=== PATIENT | female | born 1980 | race Caucasian/White ===

== ENCOUNTER 2022-09-25 10:13 | Outpatient (OUT) | payer OTHER, SELFPAY ==
--- NOTE | 2022-09-25 10:38 | XR_ITS ---
[address] [address] Patient Name: AMISHA LAKHANI MRN: [id number] date: 1980 Sex: F Assigned Patient Location: [facility] Current Patient Location: [facility] Accession/Order Number: [id number] Exam Date: 09/25/2022 10:30 Report Date: 09/25/2022 11:54 At the request of: CE DELUCA Procedure: XR lumbar spine 2-3V EXAM: XR lumbar spine 2-3V HISTORY: Low Back Derangement Syndrome M53.86 COMPARISON: None. TECHNIQUE: 2 views FINDINGS: Satisfactory alignment. Maintained vertebral body heights and disc spaces. No acute fracture or subluxation. Unremarkable soft tissues. XR/XR lumbar spine 2-3V IMPRESSION: Unremarkable exam. Electronically authenticated by: EMI VILLALBA Date: 09/25/2022 11:54
== END 2022-09-25 10:14 | disposition home or self-care (01) ==
LOC: RAD 10:16
PROVIDERS: PCP Family Medicine; Visit Provider Family Medicine
DX: M53.86 Other specified dorsopathies, lumbar region (principal)
CPT/HCPCS: 72100

== ENCOUNTER 2023-05-07 16:42 | Outpatient (OUT) | payer OTHER, SELFPAY ==
[2023-05-07 17:01] LABS: Basophils Percent Auto 0.4 % (0.2-2.0); Eosinophils Absolute Auto 0.2 10^3/uL (0.0-0.7); Eosinophils Percent Auto 2.2 % (0.9-7.0); Hemoglobin 13.2 g/dL (12.0-16.0); Immature Granulocytes Abs Auto 0.02 10^3/uL (0.00-0.03); Immature Granulocytes Pct Auto 0.2 % (0.0-0.5); Lymphocytes Absolute Auto 2.6 10^3/uL (1.2-3.8); Lymphocytes Percent Auto 30.6 % (20.5-60.0); Mean Corpuscular Hemoglobin 30.8 pg (26.7-34.0); Mean Corpuscular Volume 93.2 fL (81.0-99.0); Mean Platelet Volume 9.8 fL (9.5-13.5); Monocytes Absolute Auto 0.5 10^3/uL (0.3-0.8); Monocytes Percent Auto 5.3 % (1.7-12.0); Neutrophils Absolute Auto 5.2 10^3/uL (1.4-6.5); Neutrophils Percent Auto 61.3 % (43.0-75.0); Platelet Count 289 10^3/uL (150-450); Red Blood Count 4.29 10^6/uL (4.20-5.40); Red Cell Distribution Width 11.9 % (11.0-15.0); White Blood Count 8.5 10^3/uL (4.0-11.0)
[2023-05-07 17:43] LABS: Alanine Aminotransferase 23 U/L (14-59); Albumin Globulin Ratio 0.9; Albumin Level 3.5 g/dL (3.4-5.0); Alkaline Phosphatase 78 U/L (46-116); Anion Gap 12.1; Aspartate Amino Transferase 16 U/L (15-37); BUN Creatinine Ratio 13.9; Bilirubin Total 0.5 mg/dL (0.2-1.0); Calcium 8.6 mg/dL (8.5-10.1); Carbon Dioxide 28.2 mmol/L (21.0-32.0); Chloride 103 mmol/L (98-107); Estimated GFR (African America >60 (>=60); Estimated GFR (Non-African Ame >60 (>=60); Free T3 2.56 pg/mL (2.18-3.98); Globulin 3.8 g/dL; Glucose 149 mg/dL (74-106); Potassium 3.3 mmol/L (3.5-5.1); Sodium 140 mmol/L (136-145); Total Protein 7.3 g/dL (6.4-8.2)
== END 2023-05-07 16:43 | disposition home or self-care (01) ==
PROVIDERS: PCP Family Medicine; Visit Provider Family Medicine
DX: G43.909 Migraine, unspecified, not intractable, without status migrainosus (principal)
CPT/HCPCS: 36415; 80053; 82533; 84436; 84443; 84481; 85025

== ENCOUNTER 2023-05-10 09:09 | Outpatient (OUT) | payer OTHER, SELFPAY ==
--- OUTSIDE RECORDS SUMMARY | 2023-05-10 09:14 | XMS_ITS | CCD ---
Author Name Unknown Address [address] [place] [address] Organization [facility] Care Team Providers Care Ore Roaster Name Role Phone PHYSICIAN, DEFAULT Unavailable Unavailable PHYSICIAN, DEFAULT Unavailable Unavailable SELF, REFERRED Unavailable Unavailable Ce Pereira Primary Care Physician Dominique Blackwood Attending Unavailable HARDEN ., DR MONTANA Chiang Admitting Unavailable HARDEN ., DR MONTANA Chiang Consulting Unavailable HOY ., DR ENCINAS Primary Care Unavailable HARDEN ., DR MON[place]NA Chiang Attending Unavailable HARDEN ., DR MONTANA Chiang Admitting Unavailable HARDEN ., DR MONTANA Chiang Attending Unavailable HOY ., DR ENCINAS Primary Care Unavailable MIGUEL .DONOVAN Consulting Unavailable HOY ., DR ENCINAS Attending Unavailable HOY ., DR ENCINAS Admnatalie Unavailable HOY ., DR ENCINAS Primary Care Unavailable HOY ., DR ENCINAS Consulting Unavailable HOY ., DR ENCINAS Attending Unavailable HOY ., DR ENCINAS Admitting Unavailable HOY ., DR ENCINAS Primary Care Unavailable HOY ., DR ENCINAS Consulting Unavailable HOY ., DR ENCINAS Consulting Unavailable HOY ., DR ENCINAS Admitting Unavailable HOY ., DR ENCINAS Attending Unavailable HOY ., DR ENCINAS Primary Care Unavailable WEST, DR JUSTICE Romeo Consulting Unavailable HOY ., DR ENCINAS Consulting Unavailable HOY ., DR ENCINAS Primary Care Unavailable HOY ., DR ENCINAS Admnatalie Unavailable HOY ., DR ENCINAS Attending Unavailable WEST, DR JUSTICE Romeo Consulting Unavailable HOY ., DR ENCINAS Admnatalie Unavailable HOY ., DR ENCINAS Primary Care Unavailable HOY ., DR ENCINAS Attending Unavailable HOY ., DR ENCINAS Consulting Unavailable WEST, DR JUSTICE Romeo Consulting Unavailable HOY ., DR ENCINAS Primary Care Unavailable HOY ., DR ENCINAS Attending Unavailable HOY ., DR ENCINAS Admitting Unavailable HOY ., DR ENCINAS Consulting Unavailable HOY ., DR ENCINAS Admitting Unavailable HOY ., DR ENCINAS Attending Unavailable HOY ., DR ENCINAS Primary Care Unavailable HOY ., DR ENCINAS Consulting Unavailable HOY ., DR ENCINAS Consulting Unavailable HOY ., DR ENCINAS Admitting Unavailable HOY ., DR ENCINAS Attending Unavailable HOY ., DR ENCINAS Primary Care Unavailable [place], DR JUSTICE Romeo Consulting Unavailable HOY ., DR ENCINAS Admitting Unavailable HOY ., DR ENCINAS Primary Care Unavailable HOY ., DR ENCINAS Attending Unavailable Allergies Allergy Classification Reported Allergen(s) Allergy Type Date of Onset Reaction(s) Facility (1 source) penicillin Drug Allergy 06-14-2015 [facility] Repository (4 sources) Penicillins; Translations: [penicillins] Drug allergy 09-20-2012 [facility] Medications Current Medications Medication Drug Class(es) Dates Sig (Normalized) Sig (Original) hyoscyamine sulfate 0.125 mg oral tablet (1 source) Start: 10-08-2018 take 1 tablet under the tongue four times daily Levsin 0.125 mg SL Tab 0.125 mg = 1 tab(s), SubLingual, QID, Refills(s) 0 Start Date: 10/08/18 Status: Ordered pantoprazole 40 mg delayed release oral tablet (1 source) Proton Pump Inhibitor Start: 10-28-2018 take 1 tablet by mouth once daily Protonix 40 mg Tab-DR 40 mg = 1 tab(s), Oral, Daily Start Date: 10/28/18 Status: Ordered Problems Active Problems Problem Classification Problem Date Documented Da te Episodic/Chronic Abdominal pain (1 source) Right upper quadrant pain 10-16-2018 Episodic Esophageal disorders (1 source) Gastroesophageal reflux disease 10-28-2018 Chronic Inflammatory diseases of female pelvic organs (1 source) Female pelvic inflammatory disease 03-12-2014 Episodic Miscellaneous mental health disorders (1 source) Primary insomnia; Translations: [PRIMARY INSOMNIA] Onset: 3 Chronic Noninfectious gastroenteritis (1 source) Postprandial diarrhea 10-16-2018 Episodic Nonspecific chest pain (1 source) Chest pain; Translations: [Chest pain, unspecified] Onset: 2 Episodic Other gastrointestinal disorders (1 source) Abdominal bloating 10-16-2018 Episodic Other upper respiratory disease (1 source) Nasal congestion; Translations: [NASAL CONGESTION] Onset: 2 Episodic Residual codes; unclassified (4 sources) Obstructive sleep apnea (adult) (pediatric); Translations: [OBSTRUCTIVE SLEEP APNEA] Onset: 3 Chronic Residual codes; unclassified (1 source) Primary central sleep apnea; Translations: [PRIMARY CENTRAL SLEEP APNEA] Onset: 3 Chronic Spondylosis; intervertebral disc disorders; other back problems (1 source) Other cervical disc degeneration, unspecified cervical region; Translations: [OTH CERV DISC DEGENERATION UNS CERV] Onset: 2 Chronic Substance-related disorders (1 source) Smoker 03-12-2014 Chronic Comment on above: Added secondary to d ocumentation in Social History. Unclassified (3 sources) CONTACT W/AND (SUSP) EXPOS COVID-19; Translations: [CONTACT W/AND (SUSP) EXPOS COVID-19] Onset: 2 Unclassified (1 source) COUGH, UNSPECIFIED; Translations: [COUGH, UNSPECIFIED] Onset: 2 Past or Other Problems Problem Classification Problem Date Documented Da te Episodic/Chronic Other connective tissue disease (1 source) Unspecified rotator cuff tear or rupture of left shoulder, not specified as traumatic; Translations: [UNS ROT CUFF TEAR/RUPT LT SHOULDER] Onset: 02-08-2022 Episodic Other connective tissue disease (1 source) Pain in right arm; Translations: [PAIN IN RIGHT ARM] Onset: 11-08-2021 Episodic Other connective tissue disease (1 source) Abnormal posture; Translations: [ABNORMAL POSTURE] Onset: 11-08-2021 Episodic Other non-traumatic joint disorders (5 sources) Pain in left shoulder; Translations: [PAIN IN LEFT SHOULDER] Onset: 08-17-2021 Episodic Spondylosis; intervertebral disc disorders; other back problems (10 sources) Cervicalgia; Translations: [Radiculopathy, cervical region] Onset: 11-07-2021 Episodic Unclassified (1 source) CONTACT W/AND (SUSP) EXPOS COVID-19; Translations: [CONTACT W/AND (SUSP) EXPOS COVID-19] Onset: 03-06-2022 Results Test Name Value Interpretation Reference Range Facility Covid-19 PCR (CVDTB)on 02-09 SARS-CoV-2 (COVID-19) RNA GALDINO+probe Ql (Unsp spec) Not detected Normal NOT DETECTED [facility] Comment on above: Result Comment: This test is not yet approved or cleared by the [place] FDA. When there are no FDA-approved or cleared tests available, and other criteria are met, FDA can make tests available under an emergency access mechanism called an Emergency Use Authorization (EUA). The EUA for this test is supported by the Production Director of Health and Human Service's (HHS's) declaration that circumstances exist to justify the emergency use of in vitro diagnostics for the detection and/or diagnosis of the virus that causes COVID-19. This EUA will remain in effect (meaning this test can be used) for the duration of the COVID-19 declaration justifying emergency of IVDs, unless it is terminated or revoked by FDA (after which the test may no longer be used). When diagnostic testing is negative, the possibility of a false negative should be considered in the context of a patient's recent exposures and the presence of clinical signs and symptoms consistent with SARS-CoV-2. Performed By: #### C VDTBH #### [facility] [address] [place] [address] Dr. Siomara Mac INFLU[facility] 03[facility] Normal [facility] Comment on above: Result Comment: Nega tive for Flu A protein angiten. Infection due to Flu A cannot be ruled out. Flu A angiten in the sample may be below the detection limit of the test. Performed By: #### I NFLUAB #### [facility] [address] [place] [address] Dr. Siomara Mac INFLUBNEG SEE BELOW Normal [facility] Comment on above: Result Comment: Nega tive for Flu B protein antigen. Infection due to Flu B cannot be ruled out. Flu B antigen in the sample may be below the detection limit of the test. Performed By: #### I NFLUAB #### [facility] [address] [place] [address] Dr. Siomara Mac INFLUENZA A AG Negative Normal NEGATIVE SEE COMMENT [facility] Comment on above: Performed By: #### I NFLUAB #### [facility] [address] [place] [address] Dr. Siomara Mac INFLUENZA B AG Negative Normal NEGATIVE SEE COMMENT [facility] Comment on above: Performed By: #### I NFLUAB #### [facility] [address] [place] [address] Dr. Siomara Mac INTERNAL CONTROLS Within Normal Limits Normal Wi thin Normal Limits [facility] Comment on above: Performed By: #### I NFLUAB #### [facility] [id number] Siomara Mac MRI CSPINE WO CONon 01-26-20 MRI CSPINE WO CON EXAMINATION: MRI CSPINE WO CON HISTORY: Cervical radiculopathy COMPARISON: No relevant comparison available. TECHNIQUE: A variety of imaging planes and parameters were utilized for visualization of suspected pathology. FINDINGS: CRANIOCERVICAL AREA: Normal foramen magnum with no Chiari malformation. PARASPINAL AREA: Normal with no visible mass. BONES: Normal alignment with no acute fracture or spondylolisthesis. Signal dropout C5-C6 from anterior fusion. CORD: Normal caliber, contour, and signal intensity. DISC LEVELS: C2-C3: Early degenerative disc disease is present without focal protrusion or neural impingement. C3-C4: Early degenerative disc disease is present without focal protrusion or neural impingement. C4-C5: Early degenerative disc disease is present without focal protrusion or neural impingement. C5-C6: Anterior fusion. No disc bulge or herniation. No central or foraminal stenosis C6-C7: Disc desiccation and disc space narrowing. Posterior broad-based disc protrusion extending up to 2 mm best seen on sagittal image #8. No central or foraminal stenosis. C7-T1:. No significant disc/facet abnormality, spinal stenosis, or foraminal stenosis. IMPRESSION: Anterior fusion C5-C6 Mild discogenic changes most significant at C6-C7. No central or foraminal stenosis Electronically authenticated by: JUSTICE ANDRADE Date: 2022-01-25 08:53 Normal [facility] Coding Summary.on 01-24-2022 Coding Summary. CD:[id number] G h0bWw+PGhlYWQ+QS9QMCZ hJ64aeZXqmC9MO8dUCL4X KHBONMEPTE0TDR8zkZB8Z UoaJ3OqupCf IkthaRInDQ30CBf3WGJ2x MjzPQauiT7haJUwN4w2Iv YoEL42eB94ANomGTNbVzG 3LjZpbjsgbWFy I6gbZfPqyUHcMrp+PHRhY mxlIHdpZHRoPScxMDAlJy GkmQecXL8vTn8qTWWgCFA vbGxhcHNlOiBj z8fiYOAuSQbxPF1pxGvfN 6MrgSD8DRIxr0q3Sc73eX I+UUBaSDT3kYmiJBnlw44 5KgTsx7gzGUE3 cRQkSRqwWYU7T77kq6Y5L ZCfAILrGXX2lBT8dH3fpU ocprtsS7DdjFYlUyV7LBL 2pCYzmI5ewJkb xpyxoR9jNoi+V58OMV9FA ASYSU2LKdp4E1YzGxwujA I+KO02RXWhIQ73eYCetRA js5mapQm1VdGh BPAmVJS5sQitJMwfc9AhU CAxO24yxWDte3C1TEIqsQ kgeAGqWjQpdQH9jT8eHVt begdwz5kaaagk Jszam4lnzg49mB23V45lJ FluXJNhRFV8HAOqPDAdoR taes6ibX4zNv6+DTtkt8h to6wgwUc7PpMi HRKsazUkzZdzXFD2i8AdL z40E9UvnTxmi0BfWqt8ir 40fILqw6N3hGF0KIdlSBM kxF8nQOcnMvF2 KVIzGfNotY23aBWvGLiaZ m1qjWifvGeaCU6zZFTayk luTFIriQ0kWPMmaSWosIi yAN5lGUTfxexk g699JhEeGDU8AKGxeHEgH 4CluX1pPrSqGUYsQCUsQ9 UxrUScDKqoH426EXugSrV 3IPJtcsFqS4Fe XBQmhKwiUhR0w3J5Fq2Ac 0BlsgzrTSH2OYryOHAlYh M2UpZsJpR1U6IaDmf5CNT gwJdlCP0iS3Pm VSHkduzexajwpEF9AQRgT XSjkF70cMObYOfaRq8vm3 H8n195QBPzLJNkaZ56Hr2 udDogMTBwdCBU dH9opqrzg4qfidxzOoJuX WCyUSl1JQh1COEdzLelBr DjFGW8UvK6ORG9zGDqoW3 qrPqfskdylV3p Oyc+V50ifW0vCSQ5GUX0m etqVQHxwdFlCB10CB44O0 RyPjwvdGFibGU+PGRpdiB rpEczXH9nLqPd h7tux3YxICrrP9KyICDvF VluAxv2ZTEyEPN6fOE3vL 3tGRCzCYtvi6D9pYW7W1S neyGvvv2kl7kp JQIxQFbmW43yyYGju7S0C JNzoES5BIWypUfnXcWviG 93Oyc+HUBmbMosz2ZfKmw el6mdd0nflEi3 GkRxHPVggnXvwNkaPIS6h 2LcDl95H17jMGxoUMHnBP OqGPDlFPPgkYszic8dlP3 wIi8+PGNvbCB3 nEK5uR3xDYExQvU9ABveW 491PdLuxZDzZxbpo2oho2 zbyXc5RiQyPPDzbnSuzSh yZOW9v6UaGh34 H86rCTiqQSKvSUNrJVSuX MEwzCszxx7zbX0hUs6+PC 0ox6rurp69wQ38fXU+PHR dGUR6oNpgNBkf IICtrL1tEAolWdZ6NEFrI dInuN09uBTcYAfiHd9mfR pnsNpiCP1cHWHtsabfh77 6HxCaj0ygUNEm tPUvJSfhALM9R91ny3C4J GZfELBfYPZ7iEH0aP0bxE lnbjogbGVmdDsgdmVydGl oWPudZKhpB252 IHRvcDsnPlBhdGllbnQgT eWfJKy3S6SiEme5SCBcdI tqRH9fwUXxDOmuCw0qvFr cdElpSC4zWBNp ixtyn618CpKtt8uuAIAnt UCeWAkpNTB9R58hz5T3AR WtFDIuWUD3zPZ4jS9xtKt nbjogbGVmdDsg mdLnvIrmKDhhTKrcQ024H HRvcDsnPkJpcnRoIERhdG H9ZN79BH28aMZee5Q5cJA 0H0BhAXAsldpe bauxiSN9NLInTQLaiA45Y w4qkHfmYg9lEPYaQBG5PI TppXGkD9MbaX4nOxDlVKL sSXVfC6FjbMQy GBxiO910UNiaTsC4ALSre dJhL5WmABGbvFbhJeE6h2 E0Kb0CZ4N5EY91QH38mRI om3T5jYE2A8Yn XBIepumyiochjAR2IPZsD OGfgV09Bj2yqKwtCw0eCR ToOAH4QLKgqHBaO2ZmrG5 yOiAjMDAwMDAw X4WbqPAnJKeaO184RTmwL tM2AJUytcYrH9MuRQVdmJ ydLjF5v2N1Tj1ZNUh8RS9 5DZ39bPFti8O8 mMP9C1BxJBGguucqvdoyd SW6NBFxKNEagR71Wq0fhC xeSz5fHPRyMII2OCTqoCM kQ7MvsJ7yTqGa SIQbNCSmQ7LidOPeSXnvN 384RZucUwY0MRLgfwWxF2 RfJGXwsJfgAcE2p1D5Ht7 HEOIwIU81TPW3 hUG8LD02DX50T5ZzHreym GFibGU+PHRhYmxlIHdpZH RoPScxMDAlJyBzdHlsZT0 vZo3eTODxAZIa eMvtsAQpTxBee4aqGKIcP KilTF4iwXczK1QtzDU3RH Ftl7c2Cm84B53mO1SseEH +YPOyyQQ2eAY5 qJ9iBkRaFsV0AMxiX774T xGlkHFjItqxf6dqi8uieC r4BxZ9DEKhasAxcHuqRSR 0c8QzGs86R68b IHdpZHRoPSIxNSUiIHZhb Piiyh0qtQ1pKv6+PGNvbC F9oSC1pA1kCtAuTxE8HTm lC581HvIxuLTt Lnljl5gno3kkeHy8HcCgF MAanvTxlMkgVDR8l2SiNd 95Z9BpiGpqg8GyHwl4gt2 6oUFjq4Y7bRH8 Z7CpXULwsowroZYuaKwzK B5aUBDslfksBOPpaR7iBU PgO4g7KxBzEuT8UPetT2Y hzrU2QZHupOJo ZDzfKPJ7Q22rf0W5GGBuU XRkNUF0vLO3fL1rfPiedn ogbGVmdDsgdmVydGljYWw vSYxnJ257QOKn vXraWKAuwB2hCLZlxDQkh LyoNN7gLCWgyialPdbXBq KFNyblU3WWYKYAEK22GR4 0zRAgc5C8wSN1 H0NxEWZcscfgjclpfJH1F ISzCCHspY70rJBjSTxfHi 9cx6S0c324LCMcHDDgeS8 0Uq8leUckBKHt qKZIlD0ibdgup6ppzajyO mScMTWaYOh3JOl9XGUxrG xlPrNhUXB4AhY8UYX7lWP bzV7mtSnoiazz rG7qSiq+UTPvZQqnOKn1G TwvdGQ+PHFuOMB9sVwsES jsSHBbwZ5pWHRvQ1f6NbA kPkM7AYfjH4Tv AVMatymaSb45bF2lIhPvM qD7YJozB3AcfaY6RORssZ MzCDerCJQ0O28na6H9DDT zMVPuFVS4kGL0 zO1luZhfbfbgtHTdaQfrb mUuqXivLWmkIMhfY100MA RvcDsnPjQxIFllYXJzPC9 1FB97nPUsc2J2 yKC3M3UdGWTpgcpqhzhlg VG7QNJiMQZfeM55xWVeCH exTv7dz6K7i527MZJuBVF vaP89Xh1xgHsn DTHquGLQdF0cnbnkk2sdr mljUqSeHDAmIWd3WRf8RY QjaEniPmHsWJZ6AvR4WQD 1dNQkyO4qxYhn enxnfM6pEcq+RmVtYWxlP S73BC05nLTzx5P8dIT3P7 AgSIKocmkeguuvvXE2KZS dQFTycW93vGFj BFraEs2yx4H4n474YZBnD QAyjC90Zi9enKnhWGKtoZ TXpJ9jeqvss7myuflwZeG hFGFjVHa9SXi7 CBRcwImjHsBmGNL8GjV7R PS7eFNdqP3ugHfcnpncxM 9wOyc+ZQ7ellqlmlF0KQ4 9LP10U9RoRkch dGFibGU+PHRhYmxlIHdpZ HRoPScxMDAlJyBzdHlsZT 2iVj5fJHZoPIFlxPnwlSX pQqQxm6nqVMJv YThfRX2vaVzzM9RgcYE2H VHjz9d3Yh24Q74nZ2RpjG A+VTRmtNH7aRR5pT6iZiE mNaK3TWvkA511 OlJiqAEsRtlff0siu5vsr Wm2UrPhYGRyycKlhVybXA H2g1NpSg88C43nDDwsANR oPSIyMCUiIHZh lPwkdj4fbV5vVk8+PGNvb LT2aZE5fJ0rXpFmAmU6TA bzA489TpYibXLqCtzrE45 cV3JqmRT+PHRy Zbh6OFAslNfyOQ8ckRGvD PyqRr9jKIY1CkOeOnTmPO rhQ8VuJTEbisbxqwasdHJ 5RZYsSFNjoH46 Lr1qnWcnYm8cJEIpKVA8Y AEleXRhD2MygJ0wArYyAF PlBGCkA5OwnBWaQBnhT88 9GIyuHmJ4SROi idTuB2FhSPDseYkzBiH8r 0C1Re6PhJvcpIHaYR2oHc QbVEh5A0WmWbm0OZFfjDc xAW9txJBtYUjg Dv3mdPrlaValZM1kUIYxh iied219MqSyt6bvKPHuvM KcHKlrIMZ8N46ac6M5WVH bWFNvYWX0vNE2 xU0dkVpyaxiycGZtpRymn tIpwRgaEEkuZQqnU869PV OzpGhqKaAEXqt6B7PkZba 8OEJauJpbZT4g fLWiEEdiLt8uzQaznOvwM E5aTRHnirjqm939IyWhp4 duPQKnnKEyAQwbBPN4T56 xf1I3IAIwJBJb DBU1rIS2kF7lzYuxmdmso GVmdDsgdmVydGljYWwtYW pcT509ZGAqvOkzTh9EEyx 1U1KpLno7IDKg aMcmXI8ujGGnDVzlMs5ty BcvnKhxLM8iNOAogpohj5 40RfHep7noXEPgwESqWDh oEYQ3S62dv3Z7 QEDsDJKwSMW0hCU6qV3jq GlnbjogbGVmdDsgdmVydG bvBXipPLauB185XODvnRw nPlBheWVyOjwv dGQ+HU43jq71R2SyTuvkH lw9JHPdCHV9tOJ9gK9aCZ EjAMvmn7F8gPM7O8GbqhS ivv2ib6kbPCMk ZTog (more content not included)... Normal [facility] Auto Diffon 01-21-2022 Basophils/100 WBC (Bld) 0.8 % Normal 0.0-2.0 [facility] Comment on above: Order Comment: Order Added by Discern Expert. Performed By: #### 2 [id number], [id number] #### [facility] [address] [place] [address] Basophils/Leukocytes Auto (Bld) [Pure # fraction] 0.1 E9/L Normal 0.0-0.2 [facility] Comment on above: Order Comment: Order Added by Discern Expert. Performed By: #### 2 [id number], [id number] #### [facility] [address] [place] [address] Eosinophils/100 WBC (Bld) 2.2 % Normal 0.0-8.0 [facility] Comment on above: Order Comment: Order Added by Heather Expert. Performed By: #### 2 [id number], [id number] #### [facility] [address] [place] [address] Eosinophils/Leukocytes Auto (Bld) [Pure # fraction] 0.2 E9/L Normal 0.0-0.5 [facility] Comment on above: Order Comment: Order Added by Heather Expert. Performed By: #### 2 [id number], [id number] #### [facility] [address] [place] [address] Lymphocytes/100 WBC (Bld) 29.8 % Normal 14.0-50.0 [facility] Comment on above: Order Comment: Order Added by Heather Expert. Performed By: #### 2 [id number], [id number] #### [facility] [address] [place] [address] Lymphocytes/Leukocytes Auto (Bld) [Pure # fraction] 2.9 E9/L Normal 1.0-4.0 [facility] Comment on above: Order Comment: Order Added by Heather Expert. Performed By: #### 2 [id number], [id number] #### [facility] [address] [place] [address], [place] [address] Monocytes/100 WBC (Bld) 6.8 % Normal 4.0-14.0 [facility] Comment on above: Order Comment: Order Added by Discern Expert. Performed By: #### 2 [id number], [id number] #### [facility] [address] [place] [address] Monocytes/Leukocytes Auto (Bld) [Pure # fraction] 0.7 E9/L Normal 0.2-1.0 [facility] Comment on above: Order Comment: Order Added by Discern Expert. Performed By: #### 2 [id number], [id number] #### [facility] [address] [place] [address] Neutrophils/100 WBC (Bld) 60.4 % Normal 36.0-75.0 [facility] Comment on above: Order Comment: Order Added by Discern Expert. Performed By: #### 2 [id number], [id number] #### [facility] [address] [place] [address] Neutrophils/Leukocytes Auto (Bld) [Pure # fraction] 5.8 E9/L Normal 2.0-7.5 [facility] Comment on above: Order Comment: Order Added by Discern Expert. Performed By: #### 2 [id number], [id number] #### [facility] [address] [place] [address] B hCG Qualon 01-21-2022 Beta hCG Ql Negative Normal [facility] Comment on above: Performed By: #### 2 [id number] #### [facility] [address] [place] [address] BMPon 01-21-2022 Creatinine [Mass/Vol] 0.9 mg/dL Normal 0.5-1.3 [facility] Comment on above: Performed By: #### 2 [id number], [id number] #### [facility] [address] [place] [address] Urea nitrogen [Mass/Vol] 13 mg/dL Normal 5-21 [facility] Comment on above: Performed By: #### 2 [id number], [id number] #### [facility] [address] [facility] [place] [address] Urea nitrogen/Creatinine [Mass ratio] 14 No Units Normal 10-20 [facility] Comment on above: Performed By: #### 2 [id number], [id number] #### [facility] [address] [facility] [place] [address] Anion gap [Moles/Vol] 13 mmol/L Normal 6-16 [facility] Comment on above: Performed By: #### 2 [id number], [id number] #### [facility] [address] [place] [address] Calcium [Mass/Vol] 8.9 mg/dL Normal 8.9-11.1 [facility] Comment on above: Performed By: #### 2 [id number], [id number] #### [facility] [address] [place] [address] Chloride [Moles/Vol] 104 mmol/L Normal 101-111 [facility] Comment on above: Performed By: #### 2 [id number], [id number] #### [facility] [address] [place] [address] CO2 [Moles/Vol] 23 mmol/L Normal 21-31 [facility] Comment on above: Performed By: #### 2 [id number], [id number] #### [facility] [address] [place] [address] Glucose [Mass/Vol] 105 mg/dL Normal 55-199 [facility] Comment on above: Result Comment: If t his glucose result represents a fasting glucose, interpretation should refer to the following reference range: 55-99 mg/dL Performed By: #### 2 [id number], [id number] #### [facility] [address] [place] [address] Potassium [Moles/Vol] 3.4 mmol/L Low 3.5-5.3 [facility] Comment on above: Performed By: #### 2 [id number], [id number] #### [facility] [address] [place] [address] Sodium [Moles/Vol] 137 mmol/L Normal 135-145 [facility] Comment on above: Performed By: #### 2 [id number], [id number] #### [facility] [address] [place] [address] CBC w/ Auto Diffon Erythrocyte distribution width (RBC) [Ratio] 12.3 % Normal 10.9-14.2 [facility] Comment on above: Performed By: #### 2 [id number], [id number] #### [facility] [address] [place] [address] Hematocrit (Bld) [Volume fraction] 37.2 % Normal 34.0-46.0 [facility] Comment on above: Performed By: #### 2 [id number], [id number] #### [facility] [address] [place] [address] Hemoglobin (Bld) [Mass/Vol] 13.2 g/dL Normal 12.0-16.0 [facility] Comment on above: Performed By: #### 2 [id number], [id number] #### [facility] [address] [place] [address] MCH (RBC) [Entitic mass] 31.1 pg Normal 27.0-34.0 [facility] Comment on above: Performed By: #### 2 [id number], [id number] #### [facility] [address] [place] [address] MCHC (RBC) [Mass/Vol] 35.4 g/dL Normal 31.4-36.0 [facility] Comment on above: Performed By: #### 2 [id number], [id number] #### [facility] [address] [place] [address] MCV (RBC) [Entitic vol] 87.9 fL Normal 80.0-100.0 [facility] Comment on above: Performed By: #### 2 [id number], [id number] #### [facility] [address] [place] [address] Platelet mean volume (Bld) [Entitic vol] 7.7 fL Normal 6.4-10.8 [facility] Comment on above: Performed By: #### 2 [id number], [id number] #### [facility] [address] [place] [address] Platelets (Bld) [#/Vol] 232.0 E9/L Normal 150.0-500.0 [facility] Comment on above: Performed By: #### 2 [id number] #### [facility] [address] [place] [address] RBC (Bld) [#/Vol] 4.2 E12/L Low 4.3-5.9 [facility] Comment on above: Performed By: #### 2 [id number] #### [facility] [address] [place] [address] WBC corrected for nucl RBC Auto (Bld) [#/Vol] 9.6 E9/L Normal 4.0-11.0 [facility] Comment on above: Performed By: #### 2 [id number] #### [facility] [address] [place] [address] CHEMISTRYOrdered By: SYSTEM SYSTEM on 01-21-2022 Troponin I.cardiac [Mass/Vol] 3.80 pg/mL Low 10.10 - 27.10 pg/mL [facility] Remisol D-Dimeron 01-21-2022 Fibrin D-dimer FEU (PPP) [Mass/Vol] 294 [id number] Normal 215-500 [facility] Comment on above: Result Comment: This assay is intended for use as an aid in the diagnosis of DVT or PE. These conditions cannot be excluded with certainty solely on the basis of a D-dimer concentration being within the reference range This D-Dimer assay may be used in conjunction with a non-high clinical pretest probability assessment to exclude deep-vein thrombosis(DVT). For exclusion of venous thrombosis or pulmonary embolism the analyte D-Dimer should not be used as an aid in patients with: Therapeutic dose anticoagulant therapy for >24 hours Fibrinolytic therapy within previous 7 days Trauma or surgery within previous 4 weeks Disseminated malignacies Aortic aneurysm Sepsis, severe infections, pneumonia, severe skin infections Liver cirrhosis Performed By: #### 2 [id number] #### [facility] [address] [place] [id number] Discharge Instructionson Discharge Instructions [id number]# 1.00CD:127 Normal [facility] ED Clinical Summaryon 2021 ED Clinical Summary [address] [address] ED Clinical Summary Person Information Name: AMISHA LAKHANI [facility] Age: 41 Years : 1980 Sex: Female Language: Burundian PCP: Ce Pereira MD Marital Status: Single Visit Id: Visit Reason: Dizziness; Chest pain; Shortness of breath; CHEST PAIN Speciality: Acuity: 3 Enc Type: Emergency Med Service: Emergency Arrival: 01/20/2022 21:51:07 Discharge: 01/21/2022 01:34:32 LOS: 000 03:43 Checkin: 01/20/2022 21:51:07 Checkout: 01/21/2022 01:34:32 Dispo Type: Home (Routine DC) EVENTS: Event Name Event Status Request Date/Time Start Date/Time Complete Date/Time Arrive Complete 01/20/2022 21:51:07 01/20/2022 21:51:07 01/20/2022 21:51:07 Document Home Meds Request 01/20/2022 21:51:07 Triage Complete 01/20/2022 21:51:07 01/20/2022 22:02:12 01/20/2022 22:02:12 EKG Complete 01/20/2022 21:53:29 01/20/2022 21:56:09 Registration Complete 01/20/2022 21:54:27 01/20/2022 21:54:27 01/20/2022 21:54:27 Reg Complete Request 01/20/2022 21:54:27 Reg Bed Request Complete 01/20/2022 21:54:27 01/20/2022 21:54:27 01/20/2022 21:54:27 Dr Exam Complete 01/20/2022 21:54:56 01/20/2022 21:54:56 01/20/2022 21:54:56 Registration Complete 01/20/2022 21:54:56 01/20/2022 22:02:21 01/20/2022 22:03:51 Meds Admin Complete 01/20/2022 21:55:58 01/20/2022 22:46:43 Pending Labs Request 01/20/2022 21:55:58 Lab Complete 01/20/2022 21:55:58 01/20/2022 22:38:22 Patient Care Request 01/20/2022 21:55:58 RT Request 01/20/2022 21:55:58 X-Ray Complete 01/20/2022 21:55:58 01/20/2022 22:07:00 01/20/2022 22:28:42 Pending Labs Complete 01/20/2022 21:58:51 01/20/2022 21:58:51 01/20/2022 21:58:52 Pending Labs Cancel 01/20/2022 21:59:58 01/20/2022 22:24:42 Lab Cancel 01/20/2022 21:59:58 01/20/2022 22:24:42 Bed Assign Complete 01/20/2022 22:02:21 01/20/2022 22:02:21 01/20/2022 22:02:21 RN Exam Complete 01/20/2022 22:02:21 01/20/2022 22:41:56 01/20/2022 22:41:56 Pending Labs Complete 01/20/2022 22:07:26 01/20/2022 22:35:07 Pending Labs Complete 01/20/2022 22:13:42 01/20/2022 22:40:55 Lab Complete 01/20/2022 22:13:42 01/20/2022 22:40:55 Swab Complete 01/20/2022 22:13:42 01/20/2022 22:40:46 Pending Labs Complete 01/20/2022 22:16:24 01/20/2022 22:16:24 01/20/2022 22:38:21 Lab Complete 01/20/2022 22:16:24 01/20/2022 22:16:24 01/20/2022 22:38:21 Pending Labs Complete 01/20/2022 22:20:24 01/20/2022 22:20:24 01/20/2022 22:20:31 Lab Complete 01/20/2022 22:20:24 01/20/2022 22:20:24 01/20/2022 22:20:31 Pending Labs Complete 01/20/2022 22:25:13 01/20/2022 22:25:13 01/20/2022 22:37:57 Lab Complete 01/20/2022 22:25:13 01/20/2022 22:25:13 01/20/2022 22:37:57 Wet Read Request 01/20/2022 22:28:42 Meds Admin Request 01/21/2022 00:01:17 Meds Admin Complete 01/21/2022 00:14:20 01/21/2022 00:25:03 Discharge Complete 01/21/2022 01:24:50 01/21/2022 01:34:40 01/21/2022 01:34:40 Transfer Complete 01/21/2022 01:34:40 01/21/2022 01:34:40 01/21/2022 01:34:40 ADDRESS: [address] [place] [address] [phone] PHYS DOC NOTES: MEDICAL INFORMATION: Prescriptions Given: PATIENT EDUCATION INFORMATION: Instructions: Nonspecific Chest Pain, Adult, [id number] Follow up: With: Address: When: Ce Kelli [address] [place] [address], [place] [address] Business (1) In 3 days 01/24/2022 Comments: Please follow-up with your primary care doctor in the next 2 to 3 days for further evaluation management. Please return to the ED for any new or worsening symptoms. DIAGNOSIS: Chest pain Normal [facility] ED Note-Physicianon 01-22-20 22 ED Note-Physician Basic Information Time Seen: Dominique Blackwood DO 01/20/2022 21:54 Chief Complaint Pt arrives to ed with c/o substernal chest that has been happening intermittently throughout the day. Pt reports at approx 2100 she began to feel faint with chest pains. History of Present Illness Patient is a 41-year-old female presenting to the ED for evaluation of chest pain, shortness of breath. Patient states has been having intermittent chest pain all day however around 2100 developed persistent chest pain feeling short of breath and lightheaded and felt like everything was closing in on her. Denies any fevers, chills, recent illness, dizziness or lightheadedness. Denies any previous history of cardiac disease, hypertension, hyperlipidemia no family history of heart disease at a young age. Review of Systems General: Denied fever, chills, weight loss HEENT: Denied Congestion, rhinorrhea, sore throat Cardiac: Denied palpitations,+ chest pain, dizziness/lightheaded ness Respiratory: Denied Dyspnea, cough Abdominal: Denied abdominal pain, nausea, vomiting, diarrhea, constipation : Denied dysuria, hematuria Extremities: Denied leg swelling, leg pain, calf tenderness Neuro: Denied Focal neurologic deficits, vision changes, difficulty with speech Integumentary: Denied rashes or lesions Physical Exam Vitals & Measurements T: 36.8 ?C(Oral) HR: 108(Peripheral) RR: 18 BP: 136/96 SpO2: 100% HT: 167.64 cm WT: 99 kg BMI: 35.23 General: Well developed, non toxic appearing, no acute distress HEENT: Head atraumatic, Mucosa moist, hearing grossly normal Neck: No JVD, tracheal deviation Cardiac: tachycardiac, regular rhythm, no murmurs, or gallops, 2+ radial pulses Respiratory: Lungs clear to auscultation B/L, normal respiratory effort Abdomen: Soft non tender, no rebound or guarding, no peritoneal signs Extremities: No edema noted in the LE B/L, no tenderness to palpation Neurologic: Alert and oriented, speech clear Skin: No rashes or lesions Psych: Appropriate mood and behavior Medical Decision Making Patient is a 41-year-old female presenting to the ED for evaluation of chest pain, lightheadedness, dizziness. Patient is nontoxic and on arrival, no acute distress. Is mildly tachycardic on exam. EKG with an incomplete right bundle branch block but otherwise no acute abnormalities. Laboratory evaluation is obtained patient is given IV fluids, D-dimer is ordered due to tachycardia. Patient's laboratory evaluation is unremarkable, troponin is negative x2. D-dimer is negative. On reevaluation patient is feeling improved. She is discharged home. Patient's heart rate did remain mildly elevated in ED patient states her baseline heart rate is in the 110s. Heart Score for Major Cardiac Event History: Example factors for history - pattern of chest pain, onset, duration, relation with exercise, stress or cold, localization, concominant symptoms. reaction to sublingual nitrates, [] Highly suspicious +2 [] Moderately suspicious +1 [X] Slightly suspicious 0 EKG: [] Significant ST-Depression +2 [X] Non specific repolarization disturbance +1 [] Normal 0 Age: [] >= 65 +2 [] 45-65 + 1 [X] <45 0 Risk Factors: (HLD, HTN, DM, Cigarette Smoking, Pos Family Hx, Obesity) [] >3 risk factors or hx of atheroslerotic disease + 2 [] 1-2 risk factors + 1 [X] No risk factors known 0 Troponin: [] >= 3X normal + 2 [] 1-3X normal + 1 [X] <= Normal 0 [x] 0-3 Points 0.9 - 1.7% risk of major adverse cardiac event in 6 weeks [] 4-6 Points 12-16.6% risk of major adverse cardiac event in 6 weeks [] 7-10 Points 50-65% risk of major adverse cardiac event in 6 weeks [X] 0-3 Points with 2 sets of negative cardiac markers <1% risk of major adverse cardiac event in 30 days. Assessment/Plan Chest pain (R07.9: Chest pain, unspecified) Orders: aspirin, 162 mg = 2 tab(s), Tab-Chew, Oral, Once, Stop date 01/20/22 21:55:00 EST, STAT, Start date 01/20/22 21:55:00 EST, 01/20/22 21:55:00 EST diphenhydrAMINE, 25 mg = 0.5 mL, Injection, IV Push, Once, Stop date 01/21/22 0:14:00 EST, STAT, Start date 01/21/22 0:14:00 EST, 01/21/22 0:14:00 EST ketorolac, 30 mg = 1 mL, Injection, IV Push, Once, Stop date 01/21/22 0:14:00 EST, STAT, Start date 01/21/22 0:14:00 EST, 01/21/22 0:14:00 EST metoclopramide, 10 mg = 2 mL, Injection, IV Push, Once, Stop date 01/21/22 0:13:00 EST, STAT, Start date 01/21/22 0:13:00 EST, 01/21/22 0:13:00 EST ondansetron, 4 mg = 2 mL, Injection, IV Push, Once, Stop date 01/20/22 21:55:00 EST, STAT, Start date 01/20/22 21:55:00 EST, 01/20/22 21:55:00 EST Sodium Chloride 0.9% intravenous solution, 1,000 mL, Soln-IV, IV, Once, Stop date 01/20/22 21:55:00 EST, STAT, Start date 01/20/22 21:55:00 EST, Infuse over 61, minute(s) Sodium Chloride 0.9% intravenous soluti (more content not included)... Normal [facility] Comment on above: Result Comment: Elec tronically Signed By: Dominique Blackwood DO\Date and Time Signed: 01/21/22 01:27 EST ED Patient Education Noteon 01-21-2022 ED Patient Education Note Gastroenterology Nonspecific Chest Pain Chest pain can be caused by many different conditions. Some causes of chest pain can be life-threatening. These will require treatment right away. Serious causes of chest pain include: ? Heart attack. ? A tear in the body's main blood vessel. ? Redness and swelling (inflammation) around your heart. ? Blood clot in your lungs. Other causes of chest pain may not be so serious. These include: ? Heartburn. ? Anxiety or stress. ? Damage to bones or muscles in your chest. ? Lung infections. Chest pain can feel like: ? Pain or discomfort in your chest. ? Crushing, pressure, aching, or squeezing pain. ? Burning or tingling. ? Dull or sharp pain that is worse when you move, cough, or take a deep breath. ? Pain or discomfort that is also felt in your back, neck, jaw, shoulder, or arm, or pain that spreads to any of these areas. It is hard to know whether your pain is caused by something that is serious or something that is not so serious. So it is important to see your doctor right away if you have chest pain. Follow these instructions at home: Medicines ? Take uret-jmf-lfglyfd and prescription medicines only as told by your doctor. ? If you were prescribed an antibiotic medicine, take it as told by your doctor. Do not stop taking the antibiotic even if you start to feel better. Lifestyle ? Rest as told by your doctor. ? Do not use any products that contain nicotine or tobacco, such as cigarettes, e-cigarettes, and chewing tobacco. If you need help quitting, ask your doctor. ? Do not drink alcohol. ? Make lifestyle changes as told by your doctor. These may include: ? Getting regular exercise. Ask your doctor what activities are safe for you. ? Eating a heart-healthy diet. A diet and event specialist food demonstrator (dietitian) can help you to learn healthy eating options. ? Staying at a healthy weight. ? Treating diabetes or high blood pressure, if needed. ? Lowering your stress. Activities such as yoga and relaxation techniques can help. General instructions ? Pay attention to any changes in your symptoms. Tell your doctor about them or any new symptoms. ? Avoid any activities that cause chest pain. ? Keep all follow-up visits as told by your doctor. This is important. You may need more testing if your chest pain does not go away. Contact a doctor if: ? Your chest pain does not go away. ? You feel depressed. ? You have a fever. Get help right away if: ? Your chest pain is worse. ? You have a cough that gets worse, or you cough up blood. ? You have very bad (severe) pain in your belly (abdomen). ? You pass out (faint). ? You have either of these for no clear reason: ? Sudden chest discomfort. ? Sudden discomfort in your arms, back, neck, or jaw. ? You have shortness of breath at any time. ? You suddenly start to sweat, or your skin gets clammy. ? You feel sick to your stomach (nauseous). ? You throw up (vomit). ? You suddenly feel lightheaded or dizzy. ? You feel very weak or tired. ? Your heart starts to beat fast, or it feels like it is skipping beats. These symptoms may be an emergency. Do not wait to see if the symptoms will go away. Get medical help right away. Call your local emergency services (911 in the [place] Do not drive yourself to the hospital. Summary ? Chest pain can be caused by many different conditions. The cause may be serious and need treatment right away. If you have chest pain, see your doctor right away. ? Follow your doctor's instructions for taking medicines and making lifestyle changes. ? Keep all follow-up visits as told by your doctor. This includes visits for any further testing if your chest pain does not go away. ? Be sure to know the signs that show that your condition has become worse. Get help right away if you have these symptoms. This information is not intended to replace advice given to you by your health care provider. Make sure you discuss any questions you have with your health care provider. Document Released: 08/13/2008 Document Revised: 08/28/2018 Document Reviewed: 08/28/2018 Elsevier Patient Education ? 2020 [employer] Normal [facility] ED Patient Summaryon 022 ED Patient Summary [place] [id number] Patient Discharge Instructions Person Information Name: AMISHA LAKHANI Age: 41 Years Arrival Date: 01/20/2022 21:51:07 Discharge Diagnosis: Chest pain Primary Care Physician: Ce Pereira MD Provider Information Primary Provider: Dominique Blackwood DO Advanced Post Doctoral Researcher:None The exam and treatment you received in the Emergency Department were for an urgent problem and are not intended as complete care. It is important that you follow up with a doctor, nurse practitioner, or physician?s office assistant receptionist for ongoing care. If your symptoms become worse or you do not improve as expected and you are unable to reach your usual health care provider, you should return to the Emergency Department. We are available 24 hours a day. AMISHA LAKHANI has been given the following list of patient education materials, prescriptions and follow-up instructions: Follow-up Instructions: With: Address: When: Ce Pereira [address] [place] [address], [facility] [place] [phone] Business (1) In 3 days 01/24/2022 Comments: Please follow-up with your primary care doctor in the next 2 to 3 days for further evaluation management. Please return to the ED for any new or worsening symptoms. In the event that this physician does not participate in your insurance network, please consult with your insurance company to find a nearby participating provider. Patient Education Materials: Nonspecific Chest Pain, Adult, Pmyb-kf-Dsbf A MESSAGE TO ALL PATIENTS REGARDING OPIOIDS PRESCRIPTION OPIOIDS: WHAT YOU NEED TO KNOW Prescription opioids can be used to help relieve tqnykjya-fg-zgdsrz pain and are often prescribed following a surgery or injury, or for certain health conditions. These medications can be an important part of the treatment but also come with serious risks. It is important to work with your healthcare provider to make sure you are getting the safest, most effective care. WHAT ARE THE RISKS AND SIDE EFFECTS OF OPIOID USE? Prescription opioids carry serious risks of addiction and overdose, especially with prolonged use. An opioid overdose, often marked by slowed breathing, can cause sudden . The use of prescription opioids can have a number of side effects as well, even when taken as directed: ? Tolerance?meaning you might need to take more of the medication for the same pain relief ? Physical dependence?meaning you have symptoms of withdrawal when a medication is stopped ? Increased sensitivity to pain ? Constipation ? Nausea, vomiting, and dry mouth ? Sleepiness and dizziness ? Confusion ? Depression ? Low levels of testosterone that can result in lower sex drive, energy, and strength ? Itching and sweating RISKS ARE GREATER WITH: ? History of drug misuse, substance use disorder, or overdose ? Mental health conditions (such as depression or anxiety) ? Sleep apnea ? Older age (65 years and older) ? Avoid alcohol while taking prescription opioids. Also, unless specifically advised by your health care provider, medications to avoid include: ? Benzodiazepines (such as Xanax or Valium) ? Muscle relaxants (such as Soma or Flexeril) ? Hypnotics (such as Ambien or Lunesta) ? Other prescription opioids KNOW YOUR OPTIONS Talk to your health care provider about ways to manage your pain that don?t involve prescription opioids. Some of these options may actually work better and have fewer risks and side effects. Options may include: ? Pain relievers such as acetaminophen, ibuprofen, and naproxen ? Some medication that are also used for depression or seizures ? Physical therapy and exercise ? Cognitive behavioral therapy, a psychological, goal-directed approach, in which patients learn how to modify physical, behavioral, and emotional triggers of pain and stress. IF YOU ARE PRESCRIBED OPIOIDS FOR PAIN: ? Never take opioids in greater amounts or more often than prescribed. ? Follow up with your primary health care provider. o Work together to create a plan on how to manage your pain. o Talk about ways to help manage your pain that don?t involve prescription opioids. o Talk about any and all concerns and side effects. ? Help prevent misuse and abuse o Never sell or share prescription opioids. o Never use another person?s prescription opioids. ? Store prescription opioids in a secure place and out of reach of others (this may include visitors, children, friends, and family). ? Safely dispose of unused prescription opioids: Find your community drug take-back program or your pharmacy mail-back program, or flush them down the toilet, following guidance from the Food and Drug Administration (www.fda.gov/Drugs/Re sourcesForYou). ? Visit www.cdc.gov/drugoverd ose to learn about the risks of opioids abuse and overdose. ? If y (more content not included)... Normal [facility] EMS Documentationon 01-22-20 EMS Documentation [id number]# 1.00CD:127 Normal [facility] Hep Func Panelon 01-21-2022 Bilirubin.indirect [Mass or moles/Vol] UTC Abnormal 0.1-0.9 [facility] Comment on above: Result Comment: Resu lt verified by Discern Rule. Performed result UTC (Unable to Calculate) was sent as an Alpha code due the inability to calculate a valid numeric value. Performed By: #### 2 [id number] #### [facility] [address] [place] [address] Albumin [Mass/Vol] 3.7 g/dL Normal 3.3-5.0 [facility] Comment on above: Performed By: #### 2 [id number] #### [facility] [address] [place] [address] Albumin/Globulin (S) [Mass conc ratio] 1.1 Normal 1.1-2.2 [facility] Comment on above: Performed By: #### 2 [id number] #### [facility] [address] [place] [address] ALP [Catalytic activity/Vol] 60 Int._Unit/L Normal 21-98 [facility] Comment on above: Performed By: #### 2 [id number] #### [facility] [address] [place] [address] ALT No additional P-5'-P [Catalytic activity/Vol] 17 Int._Unit/L Normal 6-46 [facility] Comment on above: Performed By: #### 2 [id number] #### [facility] [address] [place] [address] AST [Catalytic activity/Vol] 18 Int._Unit/L Normal 5-43 [facility] Comment on above: Performed By: #### 2 [id number] #### [facility] [address] [place] [address] Bilirubin [Mass/Vol] 0.4 mg/dL Normal 0.0-1.1 [facility] Comment on above: Performed By: #### 2 [id number] #### [facility] [address] [place] [address] Bilirubin.direct [Mass/Vol] mg/dL Normal 0.1-0.4 [facility] Comment on above: Performed By: #### 2 [id number] #### [facility] [address] [place] [address] Globulin (S) [Mass/Vol] 3.3 g/dL Normal 1.4-4.0 [facility] Comment on above: Performed By: #### 2 [id number] #### [facility] [address] [place] [address] Protein [Mass/Vol] 7.0 g/dL Normal 6.0-7.8 [facility] Comment on above: Performed By: #### 2 [id number] #### [facility] [address] [place] [address] Influenza A&B Agon 2 Influenzae A Ag Negative Normal Negative [facility] Comment on above: Performed By: #### 2 [id number] #### [facility] [address] [place] [address] Influenzae B Ag Negative Normal Negative [facility] Comment on above: Result Comment: Test sensitivity and specificity vary for age group, specimen type, antigen types, and prevalence of disease. Test results must be evaluated in conjunction with other clinical data available to the physician. Individuals who received nasally administered Influenza A vaccine may have positive test results up to 3 days after vaccination. Performed By: #### 2 [id number], [id number] #### [facility] [address] [place] [address] Monitor Recordon 01-21-2022 Monitor Record [id number]# 1.00CD:127 Normal [facility] PT & PTTon 01-21-2022 aPTT Coag (PPP) [Time] 32.7 second(s) Normal 25.1-36.5 [facility] Comment on above: Result Comment: Para meter 15 days - 4 weeks 1 - 5 months 6 - 11 months 1 - 5 years 6 - 10 years 11 - 17 years PTT Mean: 35.4 (27.6-45.6) Mean: 33.5 (24.8-40.7) Mean: 32.4 (25.1-40.7) Mean: 31.6 (24.0-39.2) Mean: 31.6 (26.9-38.7) Mean: 31.0 (24.6-38.4) Pediatric Reference ranges were obtained from a study by emanuel Poe prepared from 1437 samples obtained at 7 different centers using the same coagulation reagent and instrumentation as [facility]. Currently there are no coagulation studies available worldwide for children to 14 days, and no normal ranges. Heparin therapeutic range (represented by Anti-Factor Xa activity of 0.2 - 0.4 U/mL) corresponds to PTT of 56.6 - 109.0 sec. Performed By: #### 2 [id number] #### [facility] [address] [place] [address] INR Coag (PPP) [Relative time] 1.1 {INR} Invalid Interpretation Code [facility] Comment on above: Result Comment: INR results are specifically intended to assess patients stabilized on long-term Anticoagulation therapy suggested INR?s ?Less Intensive Anticoagulation? 2.0 ? 3.0 Conventional Range 3.0 ? 4.5 Performed By: #### 2 [id number], [id number] #### [facility] [address] [place] [address] PT Coag (PPP) [Time] 11.8 second(s) Normal 9.4-12.5 [facility] Comment on above: Result Comment: 15 d ays - 4 weeks 1 - 5 months 6 -11 months 1 ? 5 years 6 ? 10 years 11 -17 years Mean: 11.2 (9.5 ? 12.6) Mean: 11.0 (9.7 ? 12.8) Mean: 11.0 (9.8 ? 13.0) Mean: 11.3 (9.9 ? 13.4) Mean: 11.7 (10.0 ? 14.6) Mean: 11.8 (10.0 - 14.1) Pediatric Reference ranges were obtained from a study by emanuel Poe prepared from 1437 samples obtained at 7 different centers using the same coagulation reagent and instrumentation as [facility]. Currently there are no coagulation studies available worldwide for children to 14 days, and no normal ranges. Performed By: #### 2 [id number], [id number] #### [facility] [address] [place] [address] Rapid COVID Antigen ([facility])on 01-21-2022 Rapid COV Int NEG Ctl Pass Normal [facility] Comment on above: Performed By: #### 2 [id number], [id number] #### [facility] [address] [place] [address] Rapid COV Int POS Ctl Pass Normal [facility] Comment on above: Performed By: #### 2 [id number], [id number] #### [facility] [address] [place] [address] SARS-CoV+SARS-CoV-2 (COVID-19) Ag IA.rapid Ql (Resp) Not detected Normal Not Detected [facility] Comment on above: Result Comment: [employer]? System for Rapid Detection of SARS-CoV-2 is a chromatographic digital immunoassay intended for the direct and qualitative detection of SARS-CoV-2 nucleocapsid antigens in nasal swabs from individuals who are suspected of COVID-19 by their healthcare provider within the first five days of the onset of symptoms. Negative results should be treated as presumptive, do not rule out SARS-CoV-2 infection and should not be used as the sole basis for treatment or patient management decisions, including infection control decisions. Negative results should be considered in the context of a patient?s recent exposures, history and the presence of clinical signs and symptoms consistent with COVID-19, and confirmed with a molecular assay, if necessary, for patient management. For in vitro diagnostic use. In the [place], only for use under an Emergency Use Authorization. In the [place], this test has not been FDA cleared or approved; this test has been authorized by FDA under an EUA for use by authorized laboratories; use by laboratories certified under the CLIA, 42 U.S.C. ?263a, that meet requirements to perform moderate, high, or waived complexity tests and at the Point of Care (POC), i.e., in patient care settings operating under a CLIA Certificate of Waiver, Certificate of Compliance, or Certificate of Accreditation. This test has been authorized only for the detection of proteins from SARS-CoV-2, not for any other viruses or pathogens; and, in the [place], this test is only authorized for the duration of the declaration that circumstances exist justifying the authorization of emergency use of in vitro diagnostics for detection and/or diagnosis of the virus that causes COVID-19 under Section 564(b)(1) of the Act, 21 U.S.C. ? 360bbb-3(b)(1), unless the authorization is terminated or revoked sooner. Performed By: #### 2 [id number], [id number] #### [facility] [address] [place] [address] ADMITTED TO INTENSIVE CARE UNIT FOR CONDITION OF INTEREST:FIND:PT: NO Normal [facility] Comment on above: Performed By: #### 2 [id number], [id number] #### [facility] [address] [place] [address] EMPLOYED IN A HEALTHCARE SETTING:FIND:PT: NO Normal [facility] Comment on above: Performed By: #### 2 [id number], [id number] #### [facility] [address] [place] [address] FIRST TEST FOR CONDITION OF INTEREST:FIND:PT: YES Normal [facility] Comment on above: Performed By: #### 2 [id number] #### [facility] [address] [place] [address] HAS SYMPTOMS RELATED TO CONDITION OF INTEREST:FIND:PT: YES Normal [facility] Comment on above: Performed By: #### 2 [id number], [id number] #### [facility] [address] [place] [address] HOSPITALIZED FOR CONDITION OF INTEREST:FIND:PT: NO Normal [facility] Comment on above: Performed By: #### 2 [id number], [id number] #### [facility] [address] [place] [address] STATUS:FIND:PT: NO Normal [facility] Comment on above: Performed By: #### 2 [id number], [id number] #### [facility] [address] [place] [address] RESIDES IN A [facility] CARE SETTING:FIND:PT: NO Normal [facility] Comment on above: Performed By: #### 2 [id number], [id number] #### [facility] [address] [place] [address] Troponin 0 Hr.on 01-21-2022 Troponin I.cardiac [Mass/Vol] 2.80 pg/mL Low 10.10-27.10 [facility] Comment on above: Result Comment: The 95% CI (Confidence Interval) PPV (Positive Predictive Value) for myocardial infarction in females is 38 pg/mL, in males 51 pg/mL. The results should be used in conjunction with clinical conditions of myocardial infarction. (Access High Sensitivity Troponin I Instructions For Use, [employer], October 2017) Performed By: #### 2 [id number] #### [facility] [address] [place] [address] Troponin 3 Hr.on 01-21-2022 Troponin I.cardiac [Mass/Vol] 3.80 pg/mL Low 10.10-27.10 [facility] Comment on above: Result Comment: The 95% CI (Confidence Interval) PPV (Positive Predictive Value) for myocardial infarction in females is 38 pg/mL, in males 51 pg/mL. The results should be used in conjunction with clinical conditions of myocardial infarction. (Access High Sensitivity Troponin I Instructions For Use, [employer], October 2017) Performed By: #### 1 [id number] #### [facility] [address] [place], [place] [id number] XR Chest Single Viewon 01-21 XR Chest Single View Exam Date/Time: 01/20/2022 22:28 EST Reason for Exam: Chest pain Report IMPRESSION: There are no acute infiltrates or effusions. CLINICAL HISTORY: Chest pain COMPARISON: FINDINGS: The cardiomediastinal silhouette is unremarkable. The lungs are free of infiltrates effusions or consolidations. The bones and soft tissues are within normal limits. FINAL REPORT Dictated: 01/21/2022 8:06 am Ross Ayala MD, V. Signed (Electronic Signature): 01/21/2022 8:06 am Signed by: Ross Ayala MD, V. Transcribed by: KATI Technologist: IGLESIA Kan [facility] eGFRon 01-21-2022 GFR/1.73 sq M.predicted among blacks MDRD (S/P/Bld) [Vol rate/Area] mL/min/{1.73_m2} Normal >=59 [facility] Comment on above: Order Comment: Order added by Discern Expert. Result Comment: eGFR is race adjusted. AA=. Performed By: #### 2 [id number] #### [facility] [address] [place] [address] GFR/1.73 sq M.predicted among non-blacks MDRD (S/P/Bld) [Vol rate/Area] mL/min/{1.73_m2} Normal >=59 [facility] Comment on above: Order Comment: Order added by Discern Expert. Result Comment: Hand Ironer alysha kidney disease could be indicated at eGFR's of less than 60 mL/min/1.73m2. Kidney failure is indicated at less than 15 mL/min/1.73m2. Performed By: #### 2 [id number] #### [facility] [address] [place] [address] CHEMISTRYOrdered By: SYSTEM SYSTEM on 01-20-2022 Albumin [Mass/Vol] 3.7 g/dL Normal 3.3 - 5.0 gm/dL [facility] Albumin/Globulin [Mass ratio] 1.1 {ratio} Normal 1.1 - 2.2 [facility] Remisol ALP [Catalytic activity/Vol] 60 [iU]/d Normal 21 - 98 Int._Unit/L [facility] ALT No additional P-5'-P [Catalytic activity/Vol] 17 [iU]/d Normal 6 - 46 Int._Unit/L [facility] Anion gap [Moles/Vol] 13 mmol/L Normal 6 - 16 mEq/L F [facility] AST [Catalytic activity/Vol] 18 [iU]/d Normal 5 - 43 Int._Unit/L [facility] Bilirubin [Mass/Vol] 0.4 mg/dL Normal 0.0 - 1 .1 mg/dL [facility] Bilirubin.direct [Mass/Vol] mg/dL Normal 0.1 - 0.4 mg/dL [facility] Bilirubin.indirect [Mass or moles/Vol] Unable to Calculate mg/dL Invalid Interpretation Code 0.1 - 0.9 mg/dL [facility] Calcium [Mass/Vol] 8.9 mg/dL Normal 8.9 - 11. 1 mg/dL [facility] Chloride [Moles/Vol] 104 mmol/L Normal 101 - 1 11 mmol/L [facility] CO2 [Moles/Vol] 23 mmol/L Normal 21 - 31 mmol/L [facility] Creatinine [Mass/Vol] 0.9 mg/dL Normal 0.5 - 1.3 mg/dL [facility] GFR/1.73 sq M.predicted among blacks MDRD (S/P/Bld) [Vol rate/Area] mL/min/1.73 m2 Normal >=59mL/min/1 .73 m2 [facility] Chem S GFR/1.73 sq M.predicted among non-blacks MDRD (S/P/Bld) [Vol rate/Area] mL/min/1.73 m2 Normal >=59mL/min/1 .73 m2 [facility] Chem S Globulin (S) [Mass/Vol] 3.3 g/dL Normal 1.4 - 4.0 gm/dL [facility] Glucose [Mass/Vol] 105 mg/dL Normal 55 - 199 mg/dL [facility] Potassium [Moles/Vol] 3.4 mmol/L Low 3.5 - 5.3 mmol/L [facility] Protein [Mass/Vol] 7.0 g/dL Normal 6.0 - 7.8 gm/dL [facility] Sodium [Moles/Vol] 137 mmol/L Normal 135 - 145 mmol/L [facility] Troponin I.cardiac [Mass/Vol] 2.80 pg/mL Low 10.10 - 27.10 pg/mL [facility] Urea nitrogen [Mass/Vol] 13 mg/dL Normal 5 - 21 mg/dL [facility] Urea nitrogen/Creatinine [Mass ratio] 14 mg/mg Normal 10 - 20 [facility] CHEMISTRYOrdered By: Lab ROP User on 01-20-2022 Glucose [Mass/Vol] 94 mg/dL Normal 55 - 99 mg/dL [facility] POC Subsection Comment on above: Result Comment: Jace winter RN/ POC Device SN [id number] Invalid Interpretation Code [facility] POC Subsection POC User ID [id number] Invalid Interpretation Code [facility] POC Subsection POC Username TIN SONG Invalid Interpretation Code [facility] POC Subsection COAGULATIONOrdered By: Kelli Gay on 01-20-2022 aPTT Coag (PPP) [Time] 32.7 s Normal 25.1 - 36.5 second(s) [facility] Auto Coag Fibrin D-dimer FEU (PPP) [Mass/Vol] 294 ng/mL FEU Normal 215 - 500 ng/mL FEU [facility] Auto Coag INR Coag (PPP) [Relative time] 1.1 {INR} Invalid Interpretation Code [facility] Auto Coag PT Coag (PPP) [Time] 11.8 s Normal 9.4 - 1 2.5 second(s) [facility] Auto Coag Capillary Glucose POCon 01-09 Glucose [Mass/Vol] 94 mg/dL Normal 55-99 [facility] Comment on above: Result Comment: Jace ENGLISH Performed By: #### 2 [id number] #### [facility] [address] [place] [address] Consent for Treatmenton 01-09 Consent for Treatment [id number] 211 [id number] Normal [facility] HEMATOLOGYOrdered By: SYSTEM SYSTEM on 01-20-2022 Basophils/100 WBC (Bld) 0.8 % Normal 0.0 - 2.0 % [facility] HemeAutoSS Basophils/Leukocytes Auto (Bld) [Pure # fraction] 0.1 E9/L Normal 0.0 - 0.2 E9/L [facility] HemeAutoSS Eosinophils/100 WBC (Bld) 2.2 % Normal 0.0 - 8.0 % [facility] HemeAutoSS Eosinophils/Leukocytes Auto (Bld) [Pure # fraction] 0.2 E9/L Normal 0.0 - 0.5 E9/L [facility] HemeAutoSS Lymphocytes/100 WBC (Bld) 29.8 % Normal 14.0 - 50.0 % [facility] HemeAutoSS Lymphocytes/Leukocytes Auto (Bld) [Pure # fraction] 2.9 E9/L Normal 1.0 - 4.0 E9/L [facility] HemeAutoSS Monocytes/100 WBC (Bld) 6.8 % Normal 4.0 - 14.0 % [facility] HemeAutoSS Monocytes/Leukocytes Auto (Bld) [Pure # fraction] 0.7 E9/L Normal 0.2 - 1.0 E9/L [facility] HemeAutoSS Neutrophils/100 WBC (Bld) 60.4 % Normal 36.0 - 75.0 % [facility] HemeAutoSS Neutrophils/Leukocytes Auto (Bld) [Pure # fraction] 5.8 E9/L Normal 2.0 - 7.5 E9/L [facility] HemeAutoSS HEMATOLOGYOrdered By: Deepak Gay on 01-20-2022 Erythrocyte distribution width (RBC) [Ratio] 12.3 % Normal 10.9 - 14.2 % [facility] HemeAutoSS Hematocrit (Bld) [Volume fraction] 37.2 % Normal 34.0 - 46.0 % [facility] HemeAutoSS Hemoglobin (Bld) [Mass/Vol] 13.2 g/dL Normal 12.0 - 16.0 gm/dL [facility] HemeAutoSS MCH (RBC) [Entitic mass] 31.1 pg Normal 27.0 - 34.0 pg [facility] HemeAutoSS MCHC (RBC) [Mass/Vol] 35.4 g/dL Normal 31.4 - 36.0 gm/dL [facility] HemeAutoSS MCV (RBC) [Entitic vol] 87.9 fL Normal 80.0 - 100.0 fL [facility] HemeAutoSS Platelet mean volume (Bld) [Entitic vol] 7.7 fL Normal 6.4 - 10.8 fL [facility] HemeAutoSS Platelets (Bld) [#/Vol] 232.0 E9/L Normal 150.0 - 500.0 E9/L [facility] HemeAutoSS RBC (Bld) [#/Vol] 4.2 E12/L Low 4.3 - 5.9 E12/L [facility] HemeAutoSS WBC corrected for nucl RBC Auto (Bld) [#/Vol] 9.6 E9/L Normal 4.0 - 11.0 E9/L [facility] HemeAutoSS MICRO OTHER TESTSOrdered By: Elysia Gay on 01-20-2022 Influenzae A Ag Negative (01/20/22 10:17 PM) Normal Negative [facility] Man Sero Influenzae B Ag Negative (01/20/22 10:17 PM) Normal Negative [facility] Man Sero Rapid COV Int NEG Ctl Pass (01/20/22 10:17 PM) Normal [facility] Man Sero Rapid COV Int POS Ctl Pass (01/20/22 10:17 PM) Normal [facility] Man Sero SARS-CoV+SARS-CoV-2 (COVID-19) Ag IA.rapid Ql (Resp) Not Detected (01/20/22 10:17 PM) Normal Not Detected [facility] Man Sero SEROLOGYOrdered By: Elyisa Gay on 01-20-2022 Beta hCG Ql Negative (01/20/22 10:10 PM) Normal [facility] Man Sero XR CSPINE MIN 4 VIEWSon 11- XR CSPINE MIN 4 VIEWS EXAMINATION: XR CSPINE MIN 4 VIEWS HISTORY: Cervical radiculopathy COMPARISON: 08/17/2021 FINDINGS: BONES: Anterior fusion C5-C6 with no mechanical failure. DISC SPACES: Interbody spacers C5-C6 PARASPINOUS: Negative. No paraspinous abnormality is seen. OTHER: Negative. IMPRESSION: Stable C5-C6 fusion Electronically authenticated by: JUSTICE ANDRADE Date: 2022-01-15 17:[address] [facility] XR CSPINE MIN 4 VIEWSon 08-09 XR CSPINE MIN 4 VIEWS EXAMINATION: XR CSPINE MIN 4 VIEWS HISTORY: Pain of left shoulder joint COMPARISON: No relevant comparison available. FINDINGS: BONES: Normal alignment with no acute fracture or spondylolisthesis. Anterior fusion C5-C6 with no mechanical failure DISC SPACES: Intervertebral spacer C5-C6 PARASPINOUS: Negative. No paraspinous abnormality is seen. OTHER: Negative. IMPRESSION: Anterior fusion C5-C6 Electronically authenticated by: JUSITCE ANDRADE Date: 2021-08-18 07:[address] [facility] INSULINon 05-25-2021 Insulin 13.9 uIU/mL Normal 2.6-24.9 [facility] Comment on above: Performed By: #### I NSULIN #### [facility] [address] [place] [address] Dr. Siomara Mac CBC AUTO DIFFon 05-24-2021 BASO # 0.0 103/ul Normal 0.0-0.1 [facility] Comment on above: Performed By: #### C BC ####[facility] [address] [place] [address]DrTin Mac Basophils/100 WBC (Bld) 0.5 % Normal 0.2-2.0 [facility] Comment on above: Performed By: #### C BC ####[facility] [address] [place], [place] [address]DrTin Mac EO # 0.2 103/ul Normal 0.0-0.7 [facility] Comment on above: Performed By: #### C BC ####[facility] [address] [place], [place] [address]DrTin Mac Eosinophils/100 WBC (Bld) 3.7 % Normal 0.9-7.0 [facility] Comment on above: Performed By: #### C BC ####[facility] [address] [place], [place] [address]DrTin Mac Erythrocyte distribution width (RBC) [Ratio] 11.6 % Normal 11.0-15.0 [facility] Comment on above: Performed By: #### C BC ####[facility] [address] [place], [place] [address]DrTin Mac Hematocrit (Bld) [Volume fraction] 41.7 % Normal 36.0-48.0 [facility] Comment on above: Performed By: #### C BC ####[facility] [address] [place], [place] [address]Dr. Siomara Mac Hemoglobin (Bld) [Mass/Vol] 14.2 g/dL Normal 12.0-16.0 [facility] Comment on above: Performed By: #### C BC ####[facility] [address] [place], [place] [address]DrTin Mac IG # 0.03 10e3/ul Normal 0.00-0.03 [facility] Comment on above: Performed By: #### C BC ####[facility] [address] [place] [id number]. Siomara Bubba IG % 0.5 % Normal 0.0-0.5 [facility] Comment on above: Performed By: #### C BC ####[facility] [address] [place] [id number]. Siomara Bubba LYMPH # 2.1 103/ul Normal 1.2-3.8 [facility] Comment on above: Performed By: #### C BC ####[facility] [address] [place] [phone]. Siomara Bubba Lymphocytes/100 WBC (Bld) 33.5 % Normal 20.5-60.0 [facility] Comment on above: Performed By: #### C BC ####[facility] [address] [place] [phone]. Siomara Bubba MANUAL DIFF REQ NO Normal [facility] Comment on above: Performed By: #### C BC ####[facility] [address] [place] [phone]. Siomara Bubba MCH (RBC) [Entitic mass] 31.2 pg Normal 26.7-34.0 [facility] Comment on above: Performed By: #### C BC ####[facility] [address] [place] [phone]. Siomara Mac MCHC (RBC) [Mass/Vol] 34.1 g/dL Normal 29.9-35.2 [facility] Comment on above: Performed By: #### C BC ####[facility] [address] [place] [phone]. Siomara Bubba MCV (RBC) [Entitic vol] 91.6 fL Normal 81.0-99.0 [facility] Comment on above: Performed By: #### C BC ####[facility] [address] [place], [place] [address]Dr. Gillbello Mac MONO # 0.3 103/ul Normal 0.3-0.8 [facility] Comment on above: Performed By: #### C BC ####[facility] [address] [place] [phone]. Siomara Mac Monocytes/100 WBC (Bld) 5.4 % Normal 1.7-12.0 [facility] Comment on above: Performed By: #### C BC ####[facility] [address] [place] [phone]. Siomara Mac NEUT # 3.6 103/ul Normal 1.4-6.5 [facility] Comment on above: Performed By: #### C BC ####[facility] [address] [place] [phone]. Siomara Mac Neutrophils/100 WBC (Bld) 56.4 % Normal 43.0-75.0 [facility] Comment on above: Performed By: #### C BC ####[facility] [address] [place] [address]Dr. Siomara Mac Platelet mean volume (Bld) [Entitic vol] 9.4 fL Critically low 9.5-13.5 [facility] Comment on above: Performed By: #### C BC ####[facility] [address] [place] [phone]. Siomara Mac PLT 292 103/ul Normal 150-450 [facility] Comment on above: Performed By: #### C BC ####[facility] [address] [place], [place] [address]Dr. Siomara Mac RBC 4.55 106/ul Normal 4.20-5.40 [facility] Comment on above: Performed By: #### C BC ####[facility] [address] [place] [phone]. Siomara Mac WBC 6.3 103/ul Normal 4.0-11.0 [facility] Comment on above: Performed By: #### C BC ####[facility] [address] [place], [place] [address]Dr. Siomara Mac FREE THYROXINE INDEX T7on FTI 2.41 Normal [facility] Comment on above: Performed By: #### L IPID, T7, TSH, CMP ####[facility] [address] [place] [phone] Mac T3U 37.0 % Normal 23.5-40.[address] [facility] Comment on above: Performed By: #### L IPID, T7, TSH, CMP ####[facility] [address] [place], [place] [address]VfTin Mac T4 [Mass/Vol] 6.50 ug/dL Normal 5.53-11.00 [facility] Comment on above: Performed By: #### L IPID, T7, TSH, CMP ####[facility] [address] [place] [phone] Mac GLYCOHEMOGLOBIN A1Con 2021 ADA RECOMMENDATION ADA THERAPEUTIC TARGET 6.0 - 7.0 ACTION SUGGESTED > 7.[address] [facility] Comment on above: Performed By: #### A 1C #### [facility] [address] [place] [address] [address] Siomara Mac Glucose [Mass/Vol] 97 mg/dL Normal [facility] Comment on above: Performed By: #### A 1C #### [facility] [address] [place] [address] [address] Siomara Mac HbA1c (Bld) [Mass fraction] 5.0 % Normal <=6.[address] [facility] Comment on above: Performed By: #### A 1C #### [facility] [address] [place] [address] [address] Siomara Mac IRONon 05-24-2021 Iron [Mass/Vol] 101.0 ug/dL Normal 37.0-170.0 [facility] Comment on above: Performed By: #### I JADE #### [facility] [address] [place] [address] [address] Siomara Mac LIPID PROFILEon 05-24-2021 CHOL-HDL RATIO NORM SEE BELOW Normal [facility] Comment on above: Result Comment: 3.3 - 4.4 LOW RISK 4.4 - 7.1 AVERAGE RISK 7.1 - 11.0 MODERATE RISK >11.0 HIGH RISK Performed By: #### L IPID, T7, TSH, CMP ####[facility] [address] [place] [phone]. Siomara Mac Cholesterol [Mass/Vol] 203 mg/dL Critically high <=200 [facility] Comment on above: Performed By: #### L IPID, T7, TSH, CMP ####[facility] [address] [place] [phone]. Siomara Mac Cholesterol in HDL [Mass/Vol] 43 mg/dL Normal [facility] Comment on above: Performed By: #### L IPID, T7, TSH, CMP ####[facility] [address] [place] [phone]. Siomara Mac Cholesterol in LDL [Mass/Vol] 123.4 mg/dL Normal [facility] Comment on above: Performed By: #### L IPID, T7, TSH, CMP ####[facility] [address] [place], [place] [id number]. Siomara Mac Cholesterol.total/Chol esterol in HDL [Mass ratio] 4.7 {ratio} Normal [facility] Comment on above: Performed By: #### L IPID, T7, TSH, CMP ####[facility] [address] [place] [phone]. Siomara Mac HDL NORMAL > or = 60 mg/dl - LO W CARDIOVASCULAR RISK <40 mg/dl - HIGH CARDIOVASCULAR RISK Normal [facility] Comment on above: Performed By: #### L IPID, T7, TSH, CMP ####[facility] [address] [place] [phone]. Siomara Mac LDL CALC NORMAL SEE BELOW Normal [facility] Comment on above: Result Comment: <100 mg/dl OPTIMAL 100 - 129 mg/dl NEAR OR ABOVE OPTIMAL 130 - 159 mg/dl BORDERLINE HIGH 160 - 189 mg/dl HIGH >190 mg/dl VERY HIGH Performed By: #### L IPID, T7, TSH, CMP ####[facility] [address] [place] [phone]. Siomara Mac Triglyceride [Mass/Vol] 183 mg/dL Critically high <=150 [facility] Comment on above: Performed By: #### L IPID, T7, TSH, CMP ####[facility] [address] [place] [address]Dr. Siomara Mac VLDL CALC 36.6 mg/dL Normal [facility] Comment on above: Performed By: #### L IPID, T7, TSH, CMP ####[facility] [address] [place] [address]Dr. Siomara Mac PROF 14(COMP METB)on 022 Albumin [Mass/Vol] 3.7 g/dL Normal 3.5-5.0 [facility] Comment on above: Performed By: #### L IPID, T7, TSH, CMP ####[facility] [address] [place], [place] [address]Dr. Siomara Mac Albumin/Globulin [Mass ratio] 1.0 {ratio} Normal [facility] Comment on above: Performed By: #### L IPID, T7, TSH, CMP ####[facility] [address] [place], [place] [address]Dr. Siomara Mac ALP [Catalytic activity/Vol] 84 U/L Normal 38-[address] [facility] Comment on above: Performed By: #### L IPID, T7, TSH, CMP ####[facility] [address] [place], [place] [address]Dr. Siomara Mac ALT [Catalytic activity/Vol] 21 U/L Normal 9-[address] [facility] Comment on above: Performed By: #### L IPID, T7, TSH, CMP ####[facility] [address] [place] [address]Dr. Siomara Mac Anion gap [Moles/Vol] 11.1 mmol/L Normal [facility] Comment on above: Performed By: #### L IPID, T7, TSH, CMP ####[facility] [address] [place], [place] [address]Dr. Siomara Mac AST [Catalytic activity/Vol] 14 U/L Normal 14-[address] [facility] Comment on above: Performed By: #### L IPID, T7, TSH, CMP ####[facility] [address] [place], [place] [address]Dr. Siomara Mac Bilirubin [Mass/Vol] 0.6 mg/dL Normal 0.2-1.3 [facility] Comment on above: Performed By: #### L IPID, T7, TSH, CMP ####[facility] [address] [place], [place] [address]Dr. Siomara Mac Calcium [Mass/Vol] 8.7 mg/dL Normal 8.4-10.2 [facility] Comment on above: Performed By: #### L IPID, T7, TSH, CMP ####[facility] [address] [place], [place] [address]Dr. Siomara Mac Chloride [Moles/Vol] 106 mmol/L Normal 98-107 [facility] Comment on above: Performed By: #### L IPID, T7, TSH, CMP ####[facility] [address] [place], [place] [address]Dr. Siomara Mac CO2 [Moles/Vol] 26.7 mmol/L Normal 22.0-30.0 [facility] Comment on above: Performed By: #### L IPID, T7, TSH, CMP ####[facility] [address] [place], [place] [address]Dr. Siomara Mac Creatinine [Mass/Vol] 0.67 mg/dL Normal 0.52-1.04 [facility] Comment on above: Performed By: #### L IPID, T7, TSH, CMP ####[facility] [address] [place], [place] [address]Dr. Siomara Mac EGFR-AF MACANESE >60 Normal >=60 [facility] Comment on above: Performed By: #### L IPID, T7, TSH, CMP ####[facility] [address] [place], [place] [address]Dr. Siomara Mac EGFR-NON AF MACANESE >60 Normal >=60 [facility] Comment on above: Performed By: #### L IPID, T7, TSH, CMP ####[facility] [address] [place], [place] [address]Dr. Siomara Mac Globulin (S) [Mass/Vol] 3.7 g/dL Normal [facility] Comment on above: Performed By: #### L IPID, T7, TSH, CMP ####[facility] [id number] [place] [address]Dr. Siomara Mac Glucose [Mass/Vol] 93 mg/dL Normal 74-106 [facility] Comment on above: Performed By: #### L IPID, T7, TSH, CMP ####[facility] [address] [place] [address]Dr. Siomara Mac Potassium [Moles/Vol] 3.8 mmol/L Normal 3.4-5.0 [facility] Comment on above: Performed By: #### L IPID, T7, TSH, CMP ####[facility] [address] [place], [place] [address]Dr. Siomara Mac Protein [Mass/Vol] 7.4 g/dL Normal 6.1-8.2 [facility] Comment on above: Performed By: #### L IPID, T7, TSH, CMP ####[facility] [address] [place], [place] [address]Dr. Siomara Mac Sodium [Moles/Vol] 140 mmol/L Normal 137-145 [facility] Comment on above: Performed By: #### L IPID, T7, TSH, CMP ####[facility] [address] [place], [place] [address]Dr. Siomara Mac Urea nitrogen [Mass/Vol] 9.0 mg/dL Normal 7.0-17.0 [facility] Comment on above: Performed By: #### L IPID, T7, TSH, CMP ####[facility] [address] [place], [place] [address]Dr. Siomara Mac Urea nitrogen/Creatinine [Mass ratio] 13.4 mg/mg Normal [facility] Comment on above: Performed By: #### L IPID, T7, TSH, CMP ####[facility] [address] [place], [place] [address]Dr. Siomara Mac TSHon 05-24-2021 TSH 1.343 uIU/mL Normal 0.470-4.680 [facility] Comment on above: Performed By: #### L IPID, T7, TSH, CMP ####[facility] [address] [place], [place] [address]Tg. Siomara Mac TSH RANGE SEE BELOW Normal [facility] Comment on above: Result Comment: <0.3 4 UIU/ml HYPERTHYROID 0.34-5.60 UIU/ml EUTHYROID >5.60 UIU/ml HYPOTHYROID Performed By: #### L IPID, T7, TSH, CMP ####[facility] [address] [place] [id number]. Siomara Mac Vital Signs Date Time Vital Sign Value Performing Clinician Milana blanchard 01-21-2022 01:31-0500 Diastolic blood pressure 80 mm[Hg] Kaylinn Dokken [facility] 01-21-2022 01:31-0500 Heart rate 108 /min Kaylinn Dokken [facility] 01-21-2022 01:31-0500 Mean blood pressure 95 mm[Hg] Kaylinn Dokken [facility] 01-21-2022 01:31-0500 Respiratory rate 21 /min Kaylinn Dokken [facility] 01-21-2022 01:31-0500 SaO2% (BldA) [Mass fraction] 96 % Kaylinn Dokken [facility] 01-21-2022 01:31-0500 Systolic blood pressure 126 mm[Hg] Kaylinn Dokken [facility] 01-21-2022 00:36-0500 Diastolic blood pressure 85 mm[Hg] Kaylinn Dokken [facility] 01-21-2022 00:36-0500 Heart rate 109 /min Kaylinn Dokken [facility] 01-21-2022 00:36-0500 Mean blood pressure 102 mm[Hg] Kaylinn Dokken [facility] 01-21-2022 00:36-0500 Respiratory rate 20 /min Kaylinn Dokken [facility] 01-21-2022 00:36-0500 SaO2% (BldA) [Mass fraction] 95 % Kaylinn Dokken [facility] 01-21-2022 00:36-0500 Systolic blood pressure 135 mm[Hg] Kaylinn Dokken [facility] 01-20-2022 23:26-0500 Diastolic blood pressure 93 mm[Hg] Kaylinn Dokken [facility] 01-20-2022 23:26-0500 Heart rate 102 /min Kaylinn Dokken [facility] 01-20-2022 23:26-0500 Mean blood pressure 99 mm[Hg] Kaylinn Dokken [facility] 01-20-2022 23:26-0500 Respiratory rate 21 /min Kaylinn Dokken [facility] 01-20-2022 23:26-0500 SaO2% (BldA) [Mass fraction] 97 % Kaylinn Dokken [facility] 01-20-2022 23:26-0500 Systolic blood pressure 112 mm[Hg] Kaylinn Dokken [facility] 01-20-2022 22:12-0500 gluc 94 mg/dL Kaylinn Dokken [facility] 01-20-2022 22:12-0500 gluc Kaylinn Dokken [facility] 01-20-2022 21:53-0500 Body temperature 98.24 [degF] Dominique Blackwood [facility] 01-20-2022 21:53-0500 Heart rate 108 /min Dominique Blackwood [facility] 01-20-2022 21:53-0500 Respiratory rate 18 /min cristelnyoksana Blackwood [facility] Encounters Encounter Date Encounter Type Care Provider Facility Start: 05-09-2022 End: 05-10-[address] CE PEREIRA . Facility:[facility] Start: 04-11-2022 End: 04-12-[address] CE PEREIRA . Facility:[facility] Start: 04-05-[address] MONTANA HARDEN . Faci lity:[facility] Start: 03-06-2022 End: 03-06-[address] CE PEREIRA . Facility:[facility] Start: 01-30-2022 End: 01-30-[address] MONTANA HARDEN . Facility:[facility] Start: 01-25-2022 End: 01-26-[address] CE PEREIRA . Facility:[facility] Start: 01-20-2022 End: 01-21-2022 Emergency department patient visit Dominique Blackwood Facility:[facility] Start: 01-20-2022 End: 01-21-2022 Emergency department patient visit Dominique Blackwood [facility] Start: 01-15-2022 End: 01-16-[address] CE PEREIRA . Facility:[facility] Start: 11-14-2021 End: 11-15-[address] CE PEREIRA . Facility:[facility] Start: 11-07-2021 End: 12-01-[address] CE PEREIRA . Facility:[facility] Start: 08-17-2021 End: 08-18-[address] CE PEREIRA . Facility:[facility] Start: 05-25-2021 Encounter for genera l adult medical examination without abnormal findings DR CE PEREIRA . [facility] Start: 05-24-2021 End: 05-25-[address] CE PEREIRA . Facility:[facility] Start: 05-24-2021 End: 05-25-2021 Encounter for general adult medical examination without abnormal findings DR CE PEREIRA . Facility:[facility] Start: 08-14-2016 End: 08-15-2016 Ambulatory DEFAULT PHYSICIAN Facility:[facility] Procedures Date Procedure Procedure Detail Performing Clinician Start: 10-22-2018 Diagnostic endoscopy Kareem Blackwood Appendectomy Dominique Blackwood Cervical (qualifier value) K salas Blackwood Comment on above: Cervical neck fractu re - Ruptured ectopic pre gnancy (disorder) Dominique Blackwood Payers Date Payer Category Payer Unknown [id number] [id number] 1980 Unknown [id number] 2.16.84 [id number] 1980 Unknown [id number] 2.16.84 [id number] 1980 Unknown [id number] 2.16.84 [id number] 1980 Unknown [id number] 2.16.84 [id number] 1980 Unknown [id number] 2.16.84 [id number] 1980 Unknown [id number] 2.16.84 [id number] 1980 Unknown [id number] 2.16.84 [id number] 1980 Unknown [id number] 2.16.84 [id number] 1980 Unknown [id number] 2.16.84 [id number] 1980 Unknown [id number] 2.16.84 [id number] 1980 Unknown [id number] 2.16.84 [id number] 1959 Unknown [id number] 1959 Unknown [id number] Unknown Social History Date Type Detail Facility Start: 01-20-2022 Tobacco smoking status Ex-smoker (fi nding) [facility] Sex Assigned At Female [facility] Functional Status Date Assessment Result Facility 01-20-2022 Functional Status N/A [place] Consultation note 01-30-2022 Note Date & Type Note Facility 01-30-2022 Note CONSULTATION CONSULTATION DATE: 01/30/2022 CHIEF COMPLAINT: Cervical pain, left shoulder pain. HISTORY OF PRESENT ILLNESS: This is a very pleasant, 41-year-old female who is referred to us by Dr. Pereira. The patient has had chronic cervical pain. The patient had a cervical fusion remote in 2013. The patient has an MRI which was visualized, which shows bulging discs above and below the fusion point at the level of C5-C6 fusion. The fusion point appears to be stable. The patient has sclerotic changes along the facets also. The patient reports her left shoulder pain as being an 8-9/10. 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 Housework, activities aggravate the patient's pain as does lifting. The patient has attended physical therapy for the last two months. The patient currently takes Tylenol 650 on a p.r.n. basis, wellbutrin. The patient's PAST MEDICAL HISTORY / SURGICAL HISTORY / REVIEW OF SYSTEMS are noted on the chart, along with the MEDICATION LIST / ALLERGIES and the MRI which was reviewed in office. PHYSICAL EXAM: Upon physical examination, this is a pleasant, cooperative female, who does not appear to be in any acute distress. VITAL SIGNS: Her blood pressure is elevated at 149/95, with a heart rate of 88. At a height of 66 , the patient weighs 220 pounds. FOCUSED EXAMINATION: With regards to her cervical spine, extension, compression, direct palpation aggravate and reproduce a component of the patient's pain symptomatology; however, it is not severe. Range of motion is maintained. The patient does frequently rotate her cervical spine in a decompressive maneuver. The patient was educated with regards to this, given the cervical arthrosis. In addition to this with regards to her left arm, upper extremity strength is maintained. The patient does have give way along the deltoid. Palpatory evaluation shows consistent with a deltoid tear. EXTREMITIES: No clubbing or cyanosis. MUSCULOSKELETAL: Within normal functional limits NEUROLOGICALLY: The patient is intact. PSYCHIATRICALLY: Affect is appropriate. IMPRESSION: Left rotator cuff dysfunction and tear, cervical bulging discs, status post remote cervical fusion at the level of C5-C6, history of irritable bowel syndrome. PLAN: We will suggest a cervical traction device for the patient. Given the fact that the patient has irritable bowel, we have suggested diclofenac with Pepto Bismol, along with probiotics and boron. Abduction exercises are given for the left shoulder with a heat rub. The patient will follow up in office in March. CC: Ce Pereira M.D. [facility] Discharge instructions 01-21-2022 Note Date & Type Note Facility 01-21-2022 Hospital Discharg e instructions Patient Education 01/21/2022 01:34:40 Nonspecific Chest Pain, Adult, Sinl-gk-Hcws Nonspecific Chest Pain Chest pain can be caused by many different conditions. Some causes of chest pain can be life-threatening. These will require treatment right away. Serious causes of chest pain include: Heart attack. A tear in the body's main blood vessel. Redness and swelling (inflammation) around your heart. Blood clot in your lungs. Other causes of chest pain may not be so serious. These include: Heartburn. Anxiety or stress. Damage to bones or muscles in your chest. Lung infections. Chest pain can feel like: Pain or discomfort in your chest. Crushing, pressure, aching, or squeezing pain. Burning or tingling. Dull or sharp pain that is worse when you move, cough, or take a deep breath. Pain or discomfort that is also felt in your back, neck, jaw, shoulder, or arm, or pain that spreads to any of these areas. It is hard to know whether your pain is caused by something that is serious or something that is not so serious. So it is important to see your doctor right away if you have chest pain. Follow these instructions at home: Medicines Take bzla-gey-xbmnbum and prescription medicines only as told by your doctor. If you were prescribed an antibiotic medicine, take it as told by your doctor. Do not stop taking the antibiotic even if you start to feel better. Lifestyle Rest as told by your doctor. Do not use any products that contain nicotine or tobacco, such as cigarettes, e-cigarettes, and chewing tobacco. If you need help quitting, ask your doctor. Do not drink alcohol. Make lifestyle changes as told by your doctor. These may include: ?Getting regular exercise. Ask your doctor what activities are safe for you. ?Eating a heart-healthy diet. A diet and event specialist food demonstrator (dietitian) can help you to learn healthy eating options. ?Staying at a healthy weight. ?Treating diabetes or high blood pressure, if needed. ?Lowering your stress. Activities such as yoga and relaxation techniques can help. General instructions Pay attention to any changes in your symptoms. Tell your doctor about them or any new symptoms. Avoid any activities that cause chest pain. Keep all follow-up visits as told by your doctor. This is important. You may need more testing if your chest pain does not go away. Contact a doctor if: Your chest pain does not go away. You feel depressed. You have a fever. Get help right away if: Your chest pain is worse. You have a cough that gets worse, or you cough up blood. You have very bad (severe) pain in your belly (abdomen). You pass out (faint). You have either of these for no clear reason: ?Sudden chest discomfort. ?Sudden discomfort in your arms, back, neck, or jaw. You have shortness of breath at any time. You suddenly start to sweat, or your skin gets clammy. You feel sick to your stomach (nauseous). You throw up (vomit). You suddenly feel lightheaded or dizzy. You feel very weak or tired. Your heart starts to beat fast, or it feels like it is skipping beats. These symptoms may be an emergency. Do not wait to see if the symptoms will go away. Get medical help right away. Call your local emergency services (911 in the [place] Do not drive yourself to the hospital. Summary Chest pain can be caused by many different conditions. The cause may be serious and need treatment right away. If you have chest pain, see your doctor right away. Follow your doctor's instructions for taking medicines and making lifestyle changes. Keep all follow-up visits as told by your doctor. This includes visits for any further testing if your chest pain does not go away. Be sure to know the signs that show that your condition has become worse. Get help right away if you have these symptoms. This information is not intended to replace advice given to you by your health care provider. Make sure you discuss any questions you have with your health care provider. Document Released: 08/13/2008 Document Revised: 08/28/2018 Document Reviewed: 08/28/2018 [employer] Patient Education [employer]. Follow Up Care 01/20/2022 21:52:01 With:Ce Pereira Address: [address] [place], [place] [id number] Business (1) When:01/24/2022 Comments:Please follow-up with your primary care doctor in the next 2 to 3 days for further evaluation management. Please return to the ED for any new or worsening symptoms. [facility] Evaluation + Plan note 01-20-2022 Note Date & Type Note Facility 01-20-2022 Evaluation + Plan note [facility] [place] from: Title:ED Note Author:Dominique Blackwood DO Date :01/20/22 Chest pain (R07.9: Chest magdy n, unspecified) Orders: aspirin, 162 mg = 2 tab(s), Tab-Chew, Oral, Once, Stop date 01/20/22 21:55:00 EST, STAT, Start date 01/20/22 21:55:00 EST, 01/20/22 21:55:00 EST diphenhydrAMINE, 25 mg = 0.5 mL, Injection, IV Push, Once, Stop date 01/21/22 0:14:00 EST, STAT, Start date 01/21/22 0:14:00 EST, 01/21/22 0:14:00 EST ketorolac, 30 mg = 1 mL, Injection, IV Push, Once, Stop date 01/21/22 0:14:00 EST, STAT, Start date 01/21/22 0:14:00 EST, 01/21/22 0:14:00 EST metoclopramide, 10 mg = 2 mL, Injection, IV Push, Once, Stop date 01/21/22 0:13:00 EST, STAT, Start date 01/21/22 0:13:00 EST, 01/21/22 0:13:00 EST ondansetron, 4 mg = 2 mL, Injection, IV Push, Once, Stop date 01/20/22 21:55:00 EST, STAT, Start date 01/20/22 21:55:00 EST, 01/20/22 21:55:00 EST Sodium Chloride 0.9% intravenous solution, 1,000 mL, Soln-IV, IV, Once, Stop date 01/20/22 21:55:00 EST, STAT, Start date 01/20/22 21:55:00 EST, Infuse over 61, minute(s) Sodium Chloride 0.9% intravenous solution, Soln-IV, Misc, Once, Stop date 01/20/22 22:04:59 EST, Physician Stop, 01/20/22 22:04:59 EST Sodium Chloride 0.9% intravenous solution 1,000 mL, 1,000 mL, IV, 983.61 mL/hr, for 30 day(s), Stop date 02/20/22 0:00:00 EST, STAT, Start date 01/21/22 0:01:00 EST, 61 minute(s), Total volume (mL): 1,000, 99 kg, 2.15, m2 Automated Diff Basic Metabolic Panel Beta hCG Qual Capillary Glucose POC CBC w/ Auto Diff D-Dimer ECG 12 Lead Adult ED Cardiac Monitoring eGFR Hepatic Function Panel Influenza A&B Ag Oxygen Saturation Oxygen Therapy PT & PTT Rapid COVID Antigen ([facility]) Saline Lock Insert Troponin 0 Hr. Troponin 3 Hr. Troponin 6 Hr. XR Chest Single View [facility] Clinical Note 11-14-2021 Note Date & Type Note Facility 11-14-2021 Note PROCEDURE: XR SHOULD ER LT 2V or > COMPARISON: None. HISTORY: Neck pain FINDINGS: BONES:No fracture, acute abnormality, or significant arthropathy. SOFT TISSUES:Negative. No visible soft tissue swelling. EFFUSION:None visible. OTHER: Negative. IMPRESSION: No acute disease. Electronically authenticated by: JUSTICE ANDRADE Date: 2021-11-14 10:44 [facility] course Narrative Note Date & Type Note Facility Hospital course Narrative No data available for this section [facility] Progress note Note Date & Type Note Facility Progress note No data available for this section [facility] Summary Purpose Family History No Family History Records FoundNo Family History Records FoundNo Family History Records Found Advance Directives No Advanced Directives Records FoundNo Advanced Directives Records FoundNo Advanced Directives Records Found Additional Source Comments INFORMATION SOURCE (unrecogn ized section and content) DATE CREATED AUTHOR 09/04/2017 [facility] DATE CREATED AUTHOR AUTHOR'S ORGANIZ ATION 01/29/2022 [facility] DATE CREATED AUTHOR AUTHOR'S ORGANIZ ATION 05/15/2022 [facility] Patient Care team informatio n (unrecognized section and content) Personnel Name: Ce Pereira MD Address: Address: [address] [place] [address] FOR RECORDS PERTAINING TO PATIENTS WHO ARE OR HAVE BEEN ENROLLED IN A CHEMICAL DEPENDENCY/SUBSTANCEABUSE PROGRAM, SOME INFORMATION MAY BE OMITTED. This clinical summary was aggregated from multiple sources. Caution should be exercised in using it in the provision of clinical care. This summary normalizes information from multiple sources, and as a consequence, information in this document may materially change the coding, format and clinical context of patient data. In addition, data may be omitted in some cases. CLINICAL DECISIONS SHOULD BE BASED ON THE PRIMARY CLINICAL RECORDS. [facility]. provides no warranty or guarantee of the accuracy or completeness of information in this document.
== END 2023-05-10 09:10 | disposition home or self-care (01) ==
PROVIDERS: PCP Family Medicine; Visit Provider Family Medicine
DX: F32.9 Major depressive disorder, single episode, unspecified (principal)
CPT/HCPCS: 36415; 82024; 82088; 82533

== ENCOUNTER 2023-05-22 11:23 | Outpatient (OUT) | payer OTHER, SELFPAY ==
--- OUTSIDE RECORDS SUMMARY | 2023-05-22 11:35 | XMS_ITS | CCD ---
Author Name Unknown Address [address] [place] [address] Organization [facility] Care Team Providers Care Winding Department Supervisor Name Role Phone PHYSICIAN, DEFAULT Unavailable Unavailable [...] HOY ., DR ENCINAS Primary Care Unavailable BRAYMER, DR JUSTICE Romeo Consulting Unavailable HOY ., DR ENCINAS Admitting Unavailable HOY ., DR ENCINAS Primary Care Unavailable HOY ., DR ENCINAS Attending Unavailable Allergies Allergy Classification Reported Allergen(s) Allergy Type Date of Onset Reaction(s) Facility (1 source) penicillin Drug Allergy 06-14-2015 [facility] Repository (4 sources) Penicillins; Translations: [penicillins] Drug allergy 09-20-2012 [facility] [place] Medications Current Medications Medication Drug Class(es) Dates [...] spec) Not detected Normal NOT DETECTED [facility] Comment on above: Result Comment: This test is not yet approved or cleared by the [place] FDA. When there are no FDA-approved or cleared tests available, and other criteria are met, FDA can make tests available under an emergency access mechanism called an Emergency Use Authorization (EUA). The EUA for this test is supported by the [place] of Health and Human Service's (HHS's) declaration [...] SARS-CoV-2. Performed By: #### C VDTBH #### [facility] [address] [place] [address] Dr. Siomara Mac INFLUENZA A AND B AGon 03-[facility] Normal [facility] Comment on above: Result Comment: Nega tive for Flu A protein angiten. Infection due to Flu A cannot be ruled out. Flu A angiten in the sample may be below the detection limit of the test. Performed By: #### I NFLUAB #### [facility] [address] [place] [address] Dr. Siomara Mac INFLUBNEG SEE BELOW Normal [facility] Comment on above: Result Comment: Nega tive for Flu B protein antigen. Infection due to Flu B cannot be ruled out. Flu B antigen in the sample may be below the detection limit of the test. Performed By: #### I NFLUAB #### [facility] [address] [place] [address] Dr. Siomara Mac INFLUENZA A AG Negative Normal NEGATIVE SEE COMMENT [facility] Comment on above: Performed By: #### I NFLUAB #### [facility] [address] [place] [address] Dr. Siomara Mac INFLUENZA B AG Negative Normal NEGATIVE SEE COMMENT [facility] Comment on above: Performed By: #### I NFLUAB #### [facility] [address] [place] [address] Dr. Siomara Mac INTERNAL CONTROLS Within Normal Limits Normal Wi thin Normal Limits [facility] Comment on above: Performed By: #### I NFLUAB #### [facility] [id number] Siomara Mac MRI CSPINE WO CONon [...] JUSTICE ANDRADE Date: 2022-01-25 08:53 Normal [facility] Coding Summary.on 01-24-2022 Coding Summary. CD:[id number] G h0bWw+PGhlYWQ+JD7QVCI hG77xbPNosK0GD6xFTS4I SXNLUJZXDH1UQG4yrTZ0E KvrS4DheaCc HwawuYLzIZ62HMn2NEL1v NlbOQnwlF0yzJOyS2w0Zc UnAR16vQ47PLtlRCBhQjK 3LjZpbjsgbWFy M2mtIiAxwELdIkg+PHRhY mxlIHdpZHRoPScxMDAlJy BrqNmsXI2rYb2mREGvCKK vbGxhcHNlOiBj p0kqHPVxRIvvPL0baEmlA 3MhdUF5XJNyy1w4Mq18bM I+LLDbFLD5bLexYBybq42 3ZqXoi9wbCXA1 pSIjSInqGXS5I82ho4U4O OPxOZHuFYN7wRI5vT7jxM lnrbfwL5YmaCZpNiJ7KXL 2iMHpxW2xuMaf zzadjM9kPty+I38EBE6QV DLODA9DDql2Q1CcSsjbzH I+IM30FRBkEM63oXFfiVW dl2mhbEp2ClKn VUYhJQP9sXyiWIuan8CgS CLfZ01mvTRas6T8FDHooO wnzDEzHzTmrHD2uV1yQMo cwyqfr3otosua Epxtd0bppj58oW81J76vH TsmWIAjORK2NIBlBQIwdB dnov6vtP6uIj9+AFglc0f kj8sdrPm4GeCn VGKmuxLibCrjTTT0l6DaM v19M9KefYpna9MqZjl0ry 49nBXdm2W3vGF1LKxhGSO lpE1pXMecUuI1 UXAyQbBhlA89bAHqXOtnK w4fxXmmxGnrDQ7vPJCjwh vnFAQxvK3cCSPmkSInxDx cUC2cGXXkugfx c711XxYrAYK9EMGgmUHsE 8ElyN8wFgBgEDQxOBDbH4 LblWHeHFlgZ012CTpnKbU 2LLAqdpYuH8La NKDozFotRdW1t8E3Lo9En 8FdksjwZEL4FOwcFOEhTq V5ZpRdVnS8P6VtTvw0ZIC zcPpsJE8oM3Tp WLNzsyutkbnhyFV6XNFeL IEnhQ18gFLoMRhaWc8yw6 P8k259WGMeFXQjkO71Sm8 udDogMTBwdCBU cN5wuuldb5iessyaSlWoU YJqOLh4CZv6JQYtqLtrBj ZzZNT0DyW5BQF5pFNasF6 kvIzfpesbfY9v Oyc+R14qiJ3hQFT8MJD7m gkrVEPvrzNeBG23NM71G1 RyPjwvdGFibGU+PGRpdiB seUuwOV7dBzWr u8fhr4LzHNaiW9GiCJSjQ NrnBve3DYNgFFS8wTX2yT 5mNAOuYCubv3E0xJM1A7Y iezWpcp3qy2jj UIQeXJrgX04naRCiq1X8T DRnfXF8RDUuoVuzOuJrqA 93Oyc+AYTyiPplg8BcWpc nj7aei3wteKp5 PoPmEGCpsbEgiWeuNPW8d 3MtCv80P96sVNqbIFKvYS SrNOHlCVHgdIdzbw6muM9 wIi8+PGNvbCB3 jWB9dB7fKEWlLjR7SLiuQ 999RmKosKQwUaiir7nrj1 kglLj1CsOaOSLdofOtkEd bWXO3v0WmAi11 B09zKWqaHGMnQXUbKQSrG AVvrZchev7jxO0kKb4+PC 0zp4zbmx35pO87bGQ+PHR wCPW9oTjoWRba TAJtiJ3oDXzfQiA2QAOcJ oJkjB43mXRsBNcxZi0xfH dkfEgoXG1mSCDieqmdl86 8UdBfn0szEMLw vDTvYVeuLNF3J54iv8T7Y XWgEBQvDBI6lME6eY3dpP lnbjogbGVmdDsgdmVydGl iDEvgIKhaA750 IHRvcDsnPlBhdGllbnQgT fFfASp2N5AjTco5KDStwR ruHK5ieOLxJZzaOi0hpXf rjBwuLE2pFEOt tjeuc556TvIuh8ybIGFzl CYzPHywTIO1I76wg7X0ZS OuTXGcXFW4gVX3cM3rpVe nbjogbGVmdDsg bjGoaZekUIbbAYntA156J HRvcDsnPkJpcnRoIERhdG E7VU00RH10iECsv2V3mHI 7Y4DqCHAlfssj leyehME6IVEcOSEosZ87L c9xjHeuHu7aGXIuBFA3LY IerCPaS8CnvA1mEmWzAMI xIHMmU8SfsKYz COzdM065RZhtXxQ9YQGnz eBfG7CiVBActWdmEtX6h8 G9Wa1OA7I9MO81HM46xOW ud6C9sGD0T1Pp AEHlvcnyurmmbKA2PIQkJ BSavG98Mz2ybJviQr6hZR DpNYI5QTMqxPZpE6KtiB3 yOiAjMDAwMDAw E6HhgFZsZUloI762CVrfI lG2HMSuoyYmA6GvRWKxcX rfXjT5l9G6Bi7TZGc6HS6 2EV35tYAgn7T2 vBG1J6XuNGPwobmmgwreb VL4SKFsXWWkmA02Kf9upF wwLx9kNBTjBGO9LGHfpGE lO0DcgU5dHmUc GVPuISGjK1ThjMLdDAowM 193XIpsNcE1JXHahzSnO4 TmGRYkkXooOyX1f2J3Vx0 DDLPfVA60HHZ4 zFP2QI94EP42J1FsEkwvn GFibGU+PHRhYmxlIHdpZH RoPScxMDAlJyBzdHlsZT0 dXx2vDXNrBLVq eVcceWDbXaYtc8czKVCaH TdiCA5teXzfI0RgsTX9JH Avm0s8Sy70E83hN5WdiED +XHArxNR3qIJ6 xY4hWjLyHgB7PPyzK217E tYlqCTcEbtoj8ysy4szgM o5CoO0VNBqxbFltFfhHVJ 0c9YvGu43U83l IHdpZHRoPSIxNSUiIHZhb Khflo9qkN4kHh9+PGNvbC F7mVT3uG0gPwPnTaB3XQs iL517EwJveJTp Spjyt8zfk2pkvNl6NlBaN BTosdPsiBkkNCF4q3YkFx 42V0VqtAquo7YrXem6ks8 9cCSyq5M3sQY3 F9ApZTQvfuqbhOBooYjnX N1iVKCqhzluPBYeqB4sVO EqQ3z7NyHoBvT9GVveM5O nrnZ3SZCaaRZv HGzqLPR4E91zr7S3PUBxX MNlIDE7zAB8iV5jqDxgfp ogbGVmdDsgdmVydGljYWw mNWczK025ZCIi zHibISMjwP4mILFreZRcj PcoCI5iWOMwvemeKgkFVo HGBsssQ3LGKCSHWL85TY1 3hCZwe3E1aUX7 M4QhJJRljexkilkvaDX9G WXhRPIwuX15yPSpOXkfGx 2wh8T3c891BWFbCCZrrI1 0Ru4xnGtbRLKk xGIHtL7qeacxx2bzxqabF pYrFXJfXHu4DXg3WQLfrR crQiExDNI9KcT4KKW0kQU ujQ9ocWrhvztx tO6yMsk+XYVpKIpkITb2N TwvdGQ+WKOaUQM4sKvhTN hpQKHfnF4pMUBpM5g7NfF aTuO8OOgdA6Rt XRGmopjgWu61aD6vJjEaJ yD0IQbdO0ClraV2TDPwvU QmDVrjXWB3A64lt6I4BAC rAREtBIA5oID7 mI9ogKahrsthaVHpaVefk vCafAnjXCwmVXwiT548ZH RvcDsnPjQxIFllYXJzPC9 0EI22sTHtz3T2 cBF9F4RzNOOpdxzonurti RL5DFAcHCDkqE68xUFwWJ kjNs7sy8D7o395RMNsOOX bdM46Dl8ycQwe KBSzuDKSxY3gveauf7pmr bmhPsBiGJUrINg8KDd8JN CkxPyjWlTsHYW0ZeB8TJM 5zWBdrO1enTli roiwsJ2gItw+RmVtYWxlP R79NT14rCHsl4D7tXL2N3 PbLCNfvhqqglhczWK8RSU dQNCabN71mHYj AZfqJo5xh7S1f527CYMlJ IKzaL28Ln3lmJfxRLJvoI CSuH0mcnotc6aqmpuaRlT aHNCmCEc2SOa4 DXMvzSzvXxUxQYA6JmO4I DG6tSLckY3joWyrnmeeoD 9wOyc+VX4zaakomhD3OY8 3MJ88Q8TcZgna dGFibGU+PHRhYmxlIHdpZ HRoPScxMDAlJyBzdHlsZT 1yQx5jIKMmCVAtgArorKV lZiMuz9piJXRk EBkgVG3pwZjbK9NwnKJ0V MJmn0l8Zd54J56aS0EezL A+ECOouAJ4wPN6zW3vIyK tKkO7PSgxO376 NtZxuCEcJhttw7dgt6iep Tz8KbIdWSAjutCslCnvJM V5v1ZbJg16D98jLGceOXV oPSIyMCUiIHZh qPrliu9ijJ7oCu9+PGNvb IQ0iXD6lG6gXcXyTwD0MM gzC527ObFkzGPlYnhlY13 jG9CtcYK+PHRy Eta7CDBnuQaqCM6giFVeL PrtVn1eQKZ4XtLrGzLrTQ mmL6DgUANbtxffusatoRS 8QFVeQXHdfT65 Ru9foInyGi5gFXLnKAD4J DOjiLNfM4IbdS3hNmXtGI HiJOWxD3LowXSnREjwP09 3OSvfWmU9UMAu jiDtP8JsINXvnTqfEvR5p 7Z3Tm9ZbJrdjWDmNO1jTt KzRDh1Q3AqOtm2JEAsrRe vCV7wlOSpHKad Hm2lyOotsMoqCU0bLPJvk yfus949VlVhm4neFHAevB FwMEvcTON3W80gf0M4PUD fFCIkVQM4dXO4 nD4dlXuvpvsezUMzdWzpz zDjfHozJQqeHOldG795MY XtpMsqXwBHAqx2K1ZxXkb 3QWPwuNogHN3q sRVyJTltXv7vhYhbiHyrI F7rTXWlqswdz085RpCow6 mlYIVhcPYtUXquISC5X28 fq1K7GJAeJTTz LPW1aOU9oH6qgKhwtqvzv GVmdDsgdmVydGljYWwtYW ftN231ETMbaCiwJy3LTue 5R0FbCjm0XIOe wJjyWZ7daDZzUVctGx3cy NakwKsqLK4lPONvbnaif2 07QfLmq1toICLdeDZmMLr rCOI7M16rp5B6 ZFMyBNUsJFB1dAE9bD1sy GlnbjogbGVmdDsgdmVydG koSYrgSXhqX976JEJaoBv nPlBheWVyOjwv dGQ+AK34gh66Q2GlZufeB dt4ROBuCVT2bON2mG2wSZ NiHVyjb3B3eLP9I9XexvW poi8oh2ojGQHe ZTog (more content not included)... Normal [facility] Auto Diffon 01-21-2022 Basophils/100 WBC (Bld) 0.8 % Normal 0.0-2.0 [facility] Comment on above: Order Comment: Order Added by Discern Expert. Performed By: #### 2 [id number], [id number] #### [facility] [address] [place] [address] Basophils/Leukocytes Auto (Bld) [Pure # fraction] 0.1 E9/L Normal 0.0-0.2 [facility] Comment on above: Order Comment: Order Added by Discern Expert. Performed By: #### 2 [id number], [id number] #### [facility] [address] [place] [address] Eosinophils/100 WBC (Bld) 2.2 % Normal 0.0-8.0 [facility] Comment on above: Order Comment: Order Added by Heather Expert. Performed By: #### 2 [id number], [id number] #### [facility] [address] [place] [address] Eosinophils/Leukocytes Auto (Bld) [Pure # fraction] 0.2 E9/L Normal 0.0-0.5 [facility] Comment on above: Order Comment: Order Added by Heather Expert. Performed By: #### 2 [id number], [id number] #### [facility] [address] [place] [address] Lymphocytes/100 WBC (Bld) 29.8 % Normal 14.0-50.0 [facility] Comment on above: Order Comment: Order Added by Heather Expert. Performed By: #### 2 [id number], [id number] #### [facility] [address] [place] [address] Lymphocytes/Leukocytes Auto (Bld) [Pure # fraction] 2.9 E9/L Normal 1.0-4.0 [facility] Comment on above: Order Comment: Order Added by Heather Expert. Performed By: #### 2 [id number], [id number] #### [facility] [address] [place] [address], [place] [address] Monocytes/100 WBC (Bld) 6.8 % Normal 4.0-14.0 [facility] Comment on above: Order Comment: Order Added by Discern Expert. Performed By: #### 2 [id number], [id number] #### [facility] [address] [place] [address] Monocytes/Leukocytes Auto (Bld) [Pure # fraction] 0.7 E9/L Normal 0.2-1.0 [facility] Comment on above: Order Comment: Order Added by Discern Expert. Performed By: #### 2 [id number], [id number] #### [facility] [address] [place] [address] Neutrophils/100 WBC (Bld) 60.4 % Normal 36.0-75.0 [facility] Comment on above: Order Comment: Order Added by Discern Expert. Performed By: #### 2 [id number], [id number] #### [facility] [address] [place] [address] Neutrophils/Leukocytes Auto (Bld) [Pure # fraction] 5.8 E9/L Normal 2.0-7.5 [facility] Comment on above: Order Comment: Order Added by Discern Expert. Performed By: #### 2 [id number], [id number] #### [facility] [address] [place] [address] B hCG Qualon 01-21-2022 Beta hCG Ql Negative Normal [facility] Comment on above: Performed By: #### 2 [id number] #### [facility] [address] [place] [address] BMPon 01-21-2022 Creatinine [Mass/Vol] 0.9 mg/dL Normal 0.5-1.3 [facility] Comment on above: Performed By: #### 2 [id number], [id number] #### [facility] [address] [place] [address] Urea nitrogen [Mass/Vol] 13 mg/dL Normal 5-21 [facility] Comment on above: Performed By: #### 2 [id number], [id number] #### [facility] [address] [place] [address] Urea nitrogen/Creatinine [Mass ratio] 14 No Units Normal 10-20 [facility] Comment on above: Performed By: #### 2 [id number], [id number] #### [facility] [address] [place] [address] Anion gap [Moles/Vol] 13 mmol/L Normal 6-16 [facility] Comment on above: Performed By: #### 2 [id number], [id number] #### [facility] [address] [place] [address] Calcium [Mass/Vol] 8.9 mg/dL Normal 8.9-11.1 [facility] Comment on above: Performed By: #### 2 [id number], [id number] #### [facility] [address] [place] [address] Chloride [Moles/Vol] 104 mmol/L Normal 101-111 [facility] Comment on above: Performed By: #### 2 [id number], [id number] #### [facility] [address] [place] [address] CO2 [Moles/Vol] 23 mmol/L Normal 21-31 [facility] Comment on above: Performed By: #### 2 [id number], [id number] #### [facility] [address] [address] Glucose [Mass/Vol] 105 mg/dL Normal 55-199 [facility] Comment on above: Result Comment: If t his glucose result represents a fasting glucose, interpretation should refer to the following reference range: 55-99 mg/dL Performed By: #### 2 [id number], [id number] #### [facility] [address] [place] [address] Potassium [Moles/Vol] 3.4 mmol/L Low 3.5-5.3 [facility] Comment on above: Performed By: #### 2 [id number], [id number] #### [facility] [address] [place] [address] Sodium [Moles/Vol] 137 mmol/L Normal 135-145 [facility] Comment on above: Performed By: #### 2 [id number], [id number] #### [facility] [address] [place] [address] CBC w/ Auto Diffon Erythrocyte distribution width (RBC) [Ratio] 12.3 % Normal 10.9-14.2 [facility] Comment on above: Performed By: #### 2 [id number], [id number] #### [facility] [address] [place] [address] Hematocrit (Bld) [Volume fraction] 37.2 % Normal 34.0-46.0 [facility] Comment on above: Performed By: #### 2 [id number], [id number] #### [facility] [address] [place] [address] Hemoglobin (Bld) [Mass/Vol] 13.2 g/dL Normal 12.0-16.0 [facility] Comment on above: Performed By: #### 2 [id number], [id number] #### [facility] [address] [place] [address] MCH (RBC) [Entitic mass] 31.1 pg Normal 27.0-34.0 [facility] Comment on above: Performed By: #### 2 [id number], [id number] #### [facility] [address] [place] [address] MCHC (RBC) [Mass/Vol] 35.4 g/dL Normal 31.4-36.0 [facility] Comment on above: Performed By: #### 2 [id number], [id number] #### [facility] [address] [place] [address] MCV (RBC) [Entitic vol] 87.9 fL Normal 80.0-100.0 [facility] Comment on above: Performed By: #### 2 [id number], [id number] #### [facility] [address] [place] [address] Platelet mean volume (Bld) [Entitic vol] 7.7 fL Normal 6.4-10.8 [facility] Comment on above: Performed By: #### 2 [id number], [id number] #### [facility] [address] [place] [address] Platelets (Bld) [#/Vol] 232.0 E9/L Normal 150.0-500.0 [facility] Comment on above: Performed By: #### 2 [id number], [id number] #### [facility] [address] [place] [address] RBC (Bld) [#/Vol] 4.2 E12/L Low 4.3-5.9 [facility] Comment on above: Performed By: #### 2 [id number], [id number] #### [facility] [address] [place] [address] WBC corrected for nucl RBC Auto (Bld) [#/Vol] 9.6 E9/L Normal 4.0-11.0 [facility] Comment on above: Performed By: #### 2 [id number], [id number] #### [facility] [address] [place] [address] CHEMISTRYOrdered By: SYSTEM SYSTEM on 01-21-2022 Troponin I.cardiac [Mass/Vol] 3.80 pg/mL Low 10.10 - 27.10 pg/mL [facility] [place]isol D-Dimeron 01-21-2022 Fibrin D-dimer FEU (PPP) [Mass/Vol] 294 [id number] Normal 215-500 [facility] Comment on above: Result Comment: This [...] infections Liver cirrhosis Performed By: #### 2 [id number], [id number] #### [facility] [address] [place] [address] Discharge Instructionson Discharge Instructions [id number]# 1.00CD:127 Normal [facility] ED Clinical Summaryon 2021 ED Clinical Summary [address] [address] ED Clinical Summary Person Information Name: AMISHA LAKHANI [facility] Age: 41 Years : 1980 Sex: Female Language: Greek PCP: Ce Pereira MD Marital Status: Single [...] 01/21/2022 01:34:40 01/21/2022 01:34:40 01/21/2022 01:34:40 ADDRESS: [address] [place] [address] [phone] [id number] PHYS DOC NOTES: MEDICAL INFORMATION: Prescriptions Given: PATIENT EDUCATION INFORMATION: Instructions: Nonspecific Chest Pain, Adult, Dvsb-fb-Xzok Follow up: With: Address: When: Ce Kelli [address] [place] [address], [place] [address] Business (1) In 3 days 01/24/2022 Comments: Please follow-up with your primary care doctor in the next 2 to 3 days for further evaluation management. Please return to the ED for any new or worsening symptoms. DIAGNOSIS: Chest pain Normal [facility] ED Note-Physicianon 01-22-20 22 ED Note-Physician [...] intravenous soluti (more content not included)... Normal [facility] Comment on above: Result Comment: Elec [...] these instructions at home: Medicines ? Take apna-vxf-wtfthjy and prescription medicines only as told by [...] Eating a heart-healthy diet. A diet and presidential support specialist (dietitian) can help you to learn healthy [...] Reviewed: 08/28/2018 Elsevier Patient Education ? 2020 [employer] Normal [facility] ED Patient Summaryon 022 ED Patient Summary [place] [id number] Patient Discharge Instructions Person Information Name: AMISHA LAKHANI Age: 41 Years Arrival Date: 01/20/2022 21:51:07 Discharge Diagnosis: Chest pain Primary Care Physician: Ce Pereira MD Provider Information Primary Provider: Dominique Blackwood DO Advanced System Manager:None The exam and treatment you received in the Emergency Department were for an urgent problem and are not intended as complete care. It is important that you follow up with a doctor, nurse practitioner, or physician?s surgery assistant for ongoing care. If your symptoms become worse or you do not improve as expected and you are unable to reach your usual health care provider, you should return to the Emergency Department. We are available 24 hours a day. AMISHA LAKHANI has been given the following list of patient education materials, prescriptions and follow-up instructions: Follow-up Instructions: With: Address: When: Ce Pereira [address] [place] [address], [facility] [place] [phone] Business (1) In 3 days 01/24/2022 Comments: [...] Patient Education Materials: Nonspecific Chest Pain, Adult, Onwz-np-Jwzw A MESSAGE TO ALL PATIENTS REGARDING OPIOIDS PRESCRIPTION OPIOIDS: WHAT YOU NEED TO KNOW Prescription opioids can be used to help relieve lwnzyiow-lb-hstabi pain and are often prescribed following a [...] If y (more content not included)... Normal [facility] EMS Documentationon 01-22-20 EMS Documentation [id number]# 1.00CD:127 Normal [facility] Hep Func Panelon 01-21-2022 Bilirubin.indirect [Mass or moles/Vol] UTC Abnormal 0.1-0.9 [facility] Comment on above: Result Comment: Resu lt verified by Discern Rule. Performed result UTC (Unable to Calculate) was sent as an Alpha code due the inability to calculate a valid numeric value. Performed By: #### 2 [id number] #### [facility] [address] [place] [address] Albumin [Mass/Vol] 3.7 g/dL Normal 3.3-5.0 [facility] Comment on above: Performed By: #### 2 [id number] #### [facility] [address] [place] [address] Albumin/Globulin (S) [Mass conc ratio] 1.1 Normal 1.1-2.2 [facility] Comment on above: Performed By: #### 2 [id number] #### [facility] [address] [place] [address] ALP [Catalytic activity/Vol] 60 Int._Unit/L Normal 21-98 [facility] Comment on above: Performed By: #### 2 [id number] #### [facility] [address] [place] [address] ALT No additional P-5'-P [Catalytic activity/Vol] 17 Int._Unit/L Normal 6-46 [facility] Comment on above: Performed By: #### 2 [id number] #### [facility] [address] [place] [address] AST [Catalytic activity/Vol] 18 Int._Unit/L Normal 5-43 [facility] Comment on above: Performed By: #### 2 [id number] #### [facility] [address] [place] [address] Bilirubin [Mass/Vol] 0.4 mg/dL Normal 0.0-1.1 [facility] Comment on above: Performed By: #### 2 [id number] #### [facility] [address] [place] [address] Bilirubin.direct [Mass/Vol] mg/dL Normal 0.1-0.4 [facility] Comment on above: Performed By: #### 2 [id number] #### [facility] [address] [place] [address] Globulin (S) [Mass/Vol] 3.3 g/dL Normal 1.4-4.0 [facility] Comment on above: Performed By: #### 2 [id number] #### [facility] [address] [place] [address] Protein [Mass/Vol] 7.0 g/dL Normal 6.0-7.8 [facility] Comment on above: Performed By: #### 2 [id number] #### [facility] [address] [place] [address] Influenza A&B Agon 2 Influenzae A Ag Negative Normal Negative [facility] Comment on above: Performed By: #### 2 [id number] #### [facility] [address] [place] [address] Influenzae B Ag Negative Normal Negative [facility] Comment on above: Result Comment: Test sensitivity and specificity vary for age group, specimen type, antigen types, and prevalence of disease. Test results must be evaluated in conjunction with other clinical data available to the physician. Individuals who received nasally administered Influenza A vaccine may have positive test results up to 3 days after vaccination. Performed By: #### 2 [id number] #### [facility] [address] [place] [id number] Monitor Recordon 01-21-2022 Monitor Record [id number]# [id number]:[id number] Normal [facility] PT & PTTon 01-21-2022 aPTT Coag (PPP) [Time] 32.7 second(s) Normal 25.1-36.5 [facility] Comment on above: Result Comment: Para [...] the same coagulation reagent and [place] [facility] [place] Currently there are no coagulation studies available worldwide for children to 14 days, and no normal ranges. Heparin therapeutic range (represented by Anti-Factor Xa activity of 0.2 - 0.4 U/mL) corresponds to PTT of 56.6 - 109.0 sec. Performed By: #### 2 [id number] #### [facility] [address] [place] [address] INR Coag (PPP) [Relative time] 1.1 {INR} Invalid Interpretation Code [facility] Comment on above: Result Comment: INR results are specifically intended to assess patients stabilized on long-term Anticoagulation therapy suggested INR?s ?Less Intensive Anticoagulation? 2.0 ? 3.0 Conventional Range 3.0 ? 4.5 Performed By: #### 2 [id number] #### [facility] [address] [place] [address] PT Coag (PPP) [Time] 11.8 second(s) Normal 9.4-12.5 [facility] Comment on above: Result Comment: 15 [...] the same coagulation reagent and instrumentation [place] [facility] [place] Currently there are no coagulation studies available worldwide for children to 14 days, and no normal ranges. Performed By: #### 2 [id number], [id number] #### [facility] [address] [place] [address] [place] [place]-2022 Rapid COV Int NEG Ctl Pass Normal Fis [facility] Comment on above: Performed By: #### 2 [id number], [id number] #### [facility] [address] [place] [address] Rapid COV Int POS Ctl Pass Normal Fis [facility] Comment on above: Performed By: #### 2 [id number], [id number] #### [facility] [address] [place] [address] SARS-CoV+SARS-CoV-2 (COVID-19) Ag IA.rapid Ql (Resp) Not detected Normal Not Detected [facility] Comment on above: Result Comment: The [employer]? System for Rapid Detection of SARS-CoV-2 is [...] or revoked sooner. Performed By: #### 2 [id number], [id number] #### [facility] [address] [place] [address] ADMITTED TO INTENSIVE CARE UNIT FOR CONDITION OF INTEREST:FIND:PT: NO Normal [facility] Comment on above: Performed By: #### 2 [id number], [id number] #### [facility] [address] [place] [address] EMPLOYED IN A HEALTHCARE SETTING:FIND:PT: NO Normal [facility] Comment on above: Performed By: #### 2 [id number], [id number] #### [facility] [address] [place] [address] FIRST TEST FOR CONDITION OF INTEREST:FIND:PT: YES Normal [facility] Comment on above: Performed By: #### 2 [id number], [id number] #### [facility] [address] [place] [address] HAS SYMPTOMS RELATED TO CONDITION OF INTEREST:FIND:PT: YES Normal [facility] Comment on above: Performed By: #### 2 [id number], [id number] #### [facility] [address] [place] [address] HOSPITALIZED FOR CONDITION OF INTEREST:FIND:PT: NO Normal [facility] Comment on above: Performed By: #### 2 [id number], [id number] #### [facility] [address] [place] [address] STATUS:FIND:PT: NO Normal [facility] Comment on above: Performed By: #### 2 [id number], [id number] #### [facility] [address] [place] [address] RESIDES IN A [facility] CARE SETTING:FIND:PT: NO Normal [facility] Comment on above: Performed By: #### 2 [id number], [id number] #### [facility] [address] [place] [address] Troponin 0 Hr.on 01-21-2022 Troponin I.cardiac [Mass/Vol] 2.80 pg/mL Low 10.10-27.10 [facility] Comment on above: Result Comment: The 95% CI (Confidence Interval) PPV (Positive Predictive Value) for myocardial infarction in females is 38 pg/mL, in males 51 pg/mL. The results should be used in conjunction with clinical conditions of myocardial infarction. (Access High Sensitivity Troponin I Instructions For Use, [employer], October 2017) Performed By: #### 2 [id number] #### [facility] [address] [place] [address] Troponin 3 Hr.on 01-21-2022 Troponin I.cardiac [Mass/Vol] 3.80 pg/mL Low 10.10-27.10 [facility] Comment on above: Result Comment: The 95% CI (Confidence Interval) PPV (Positive Predictive Value) for myocardial infarction in females is 38 pg/mL, in males 51 pg/mL. The results should be used in conjunction with clinical conditions of myocardial infarction. (Access High Sensitivity Troponin I Instructions For Use, [employer], October 2017) Performed By: #### 1 [id number] #### [facility] [address] [place], [place] [id number] XR Chest Single Viewon 01-21 XR Chest [...] V. Transcribed by: KATI Technologist: IGLESIA Kan [facility] eGFRon 01-21-2022 GFR/1.73 sq M.predicted among blacks MDRD (S/P/Bld) [Vol rate/Area] mL/min/{1.73_m2} Normal >=59 [facility] Comment on above: Order Comment: Order added by Discern Expert. Result Comment: eGFR is race adjusted. AA=. Performed By: #### 2 [id number] #### [facility] [address] [place] [address] GFR/1.73 sq M.predicted among non-blacks MDRD (S/P/Bld) [Vol rate/Area] mL/min/{1.73_m2} Normal >=59 [facility] Comment on above: Order Comment: Order added by Discern Expert. Result Comment: Phosphatic Fertilizer Supervisor alysha kidney disease could be indicated at eGFR's of less than 60 mL/min/1.73m2. Kidney failure is indicated at less than 15 mL/min/1.73m2. Performed By: #### 2 [id number] #### [facility] [address] [place] [address] CHEMISTRYOrdered By: SYSTEM SYSTEM on 01-20-2022 Albumin [...] rate/Area] mL/min/1.73 m2 Normal >=59mL/min/1 .73 m2 [facility] [place] Chem S GFR/1.73 sq M.predicted among non-blacks MDRD (S/P/Bld) [Vol rate/Area] mL/min/1.73 m2 Normal >=59mL/min/1 .73 m2 [facility] [place] [place] Chem S Globulin (S) [Mass/Vol] 3.3 g/dL [...] 94 mg/dL Normal 55 - 99 mg/dL [facility] [place] POC Subsection Comment on above: Result Comment: Jace winter RN/ POC Device SN [id number] Invalid Interpretation Code FT POC Subsection POC User ID [id number] Invalid Interpretation Code [facility] [place] POC Subsection POC Username TIN SONG Invalid Interpretation Code [facility] [place] POC Subsection COAGULATIONOrdered By: Kelli Gay on [...] s Normal 9.4 - 1 2.5 second(s) [facility] [place] [place] Auto Coag Capillary Glucose POCon 01-09 Glucose [Mass/Vol] 94 mg/dL Normal 55-99 [facility] Comment on above: Result Comment: Jace ENGLISH Performed By: #### 2 [id number] #### [facility] [address] [place] [address] Consent for Treatmenton 01-09 Consent for Treatment [id number] 211 [id number] Normal [facility] HEMATOLOGYOrdered By: SYSTEM SYSTEM on 01-20-2022 [...] Ag Negative (01/20/22 10:17 PM) Normal Negative [facility] [place] Man Sero Influenzae B Ag Negative (01/20/22 10:17 PM) Normal Negative [facility] [place] Man Sero Rapid COV Int NEG Ctl Pass (01/20/22 10:17 PM) Normal FT Man Sero Rapid COV Int POS Ctl Pass (01/20/22 10:17 PM) Normal [facility] [place] Man Sero SARS-CoV+SARS-CoV-2 (COVID-19) Ag IA.rapid Ql (Resp) Not Detected (01/20/22 10:17 PM) Normal Not Detected [facility] [place] Man Sero SEROLOGYOrdered By: Elysia Gay on 01-20-2022 Beta hCG Ql Negative (01/20/22 10:10 PM) Normal [facility] [place] Sero XR CSPINE MIN 4 VIEWSon 11- XR CSPINE MIN 4 VIEWS EXAMINATION: XR CSPINE MIN 4 VIEWS HISTORY: Cervical radiculopathy COMPARISON: 08/17/2021 FINDINGS: BONES: Anterior fusion C5-C6 with no mechanical failure. DISC SPACES: Interbody spacers C5-C6 PARASPINOUS: Negative. No paraspinous abnormality is seen. OTHER: Negative. IMPRESSION: Stable C5-C6 fusion Electronically authenticated by: JUSTICE ANDRADE Date: 2022-01-15 17:34 Normal [facility] XR CSPINE MIN 4 VIEWSon 08-09 XR [...] IMPRESSION: Anterior fusion C5-C6 Electronically authenticated by: JUSTICE ANDRADE Date: 2021-08-18 07:29 Normal [facility] INSULINon 05-25-2021 Insulin 13.9 uIU/mL Normal 2.6-24.9 [facility] Comment on above: Performed By: #### I NSULIN #### [facility] [address] [place] [address] Dr. Siomara Mac CBC AUTO DIFFon 05-24-2021 BASO # 0.0 103/ul Normal 0.0-0.1 [facility] Comment on above: Performed By: #### C BC ####[facility] [address] [place] [address]DrTin Mac Basophils/100 WBC (Bld) 0.5 % Normal 0.2-2.0 [facility] Comment on above: Performed By: #### C BC ####[facility] [address] [place], [place] [address]DrTin Mac EO # 0.2 103/ul Normal 0.0-0.7 [facility] Comment on above: Performed By: #### C BC ####[facility] [address] [place], [place] [address]DrTin Mac Eosinophils/100 WBC (Bld) 3.7 % Normal 0.9-7.0 [facility] Comment on above: Performed By: #### C BC ####[facility] [address] [place], [place] [address]DrTin Mac Erythrocyte distribution width (RBC) [Ratio] 11.6 % Normal 11.0-15.0 [facility] Comment on above: Performed By: #### C BC ####[facility] [address] [place], [place] [address]DrTin Mac Hematocrit (Bld) [Volume fraction] 41.7 % Normal 36.0-48.0 [facility] Comment on above: Performed By: #### C BC ####[facility] [address] [place], [place] [address]Dr. Siomara Mac Hemoglobin (Bld) [Mass/Vol] 14.2 g/dL Normal 12.0-16.0 [facility] Comment on above: Performed By: #### C BC ####[facility] [address] [place], [place] [address]DrTin Mac IG # 0.03 10e3/ul Normal 0.00-0.03 [facility] Comment on above: Performed By: #### C BC ####[facility] [address] [place] [id number]. Siomara Bubba IG % 0.5 % Normal 0.0-0.5 [facility] Comment on above: Performed By: #### C BC ####[facility] [address] [place] [id number]. Siomara Bubba LYMPH # 2.1 103/ul Normal 1.2-3.8 [facility] Comment on above: Performed By: #### C BC ####[facility] [address] [place] [id number]. Siomara Bubba Lymphocytes/100 WBC (Bld) 33.5 % Normal 20.5-60.0 [facility] Comment on above: Performed By: #### C BC ####[facility] [address] [place] [id number]. Siomara Bubba MANUAL DIFF REQ NO Normal [facility] Comment on above: Performed By: #### C BC ####[facility] [address] [place] [id number]. Siomara Bubba MCH (RBC) [Entitic mass] 31.2 pg Normal 26.7-34.0 [facility] Comment on above: Performed By: #### C BC ####[facility] [address] [place] [id number]. Siomara Mac MCHC (RBC) [Mass/Vol] 34.1 g/dL Normal 29.9-35.2 [facility] Comment on above: Performed By: #### C BC ####[facility] [address] [place] [id number]. Siomara Bubba MCV (RBC) [Entitic vol] 91.6 fL Normal 81.0-99.0 [facility] Comment on above: Performed By: #### C BC ####[facility] [address] [place], [place] [address]Dr. Gillbello Mac MONO # 0.3 103/ul Normal 0.3-0.8 [facility] Comment on above: Performed By: #### C BC ####[facility] [address] [place] [id number]. Siomara Mac Monocytes/100 WBC (Bld) 5.4 % Normal 1.7-12.0 [facility] Comment on above: Performed By: #### C BC ####[facility] [address] [place] [id number]. Siomara Mac NEUT # 3.6 103/ul Normal 1.4-6.5 [facility] Comment on above: Performed By: #### C BC ####[facility] In[address] [place] [id number]. Siomara Mac Neutrophils/100 WBC (Bld) 56.4 % Normal 43.0-75.0 [facility] Comment on above: Performed By: #### C BC ####[facility] [address] [place] [address]Dr. Siomara Mac Platelet mean volume (Bld) [Entitic vol] 9.4 fL Critically low 9.5-13.5 [facility] Comment on above: Performed By: #### C BC ####[facility] [address] [place] [id number]. Siomara Mac PLT 292 103/ul Normal 150-450 [facility] Comment on above: Performed By: #### C BC ####[facility] [address] [place], [place] [address]Dr. Siomara Mac RBC 4.55 106/ul Normal 4.20-5.40 [facility] Comment on above: Performed By: #### C BC ####[facility] [address] [place] [id number]. Siomara Mac WBC 6.3 103/ul Normal 4.0-11.0 [facility] Comment on above: Performed By: #### C BC ####[facility] [address] [place], [place] [address]Dr. Siomara Mac FREE THYROXINE INDEX T7on FTI 2.41 Normal [facility] Comment on above: Performed By: #### L IPID, T7, TSH, CMP ####[facility] [address] [place] [id number] Mac T3U 37.0 % Normal 23.5-40.5 [facility] Comment on above: Performed By: #### L IPID, T7, TSH, CMP ####[facility] [address] [place], [place] [address]PvTin Mac T4 [Mass/Vol] 6.50 ug/dL Normal 5.53-11.00 [facility] Comment on above: Performed By: #### L IPID, T7, TSH, CMP ####[facility] [address] [place] [id number] Mac GLYCOHEMOGLOBIN A1Con 2021 ADA RECOMMENDATION ADA THERAPEUTIC TARGET 6.0 - 7.0 ACTION SUGGESTED > 7.0 Normal [facility] Comment on above: Performed By: #### A 1C #### [facility] [address] [place] [address] [address] Siomara Mac Glucose [Mass/Vol] 97 mg/dL Normal [facility] Comment on above: Performed By: #### A 1C #### [facility] [address] [address] [address] Siomara Mac HbA1c (Bld) [Mass fraction] 5.0 % Normal <=6.0 [facility] Comment on above: Performed By: #### A 1C #### [facility] [address] [address] [address] Siomara Mac IRONon 05-24-2021 Iron [Mass/Vol] 101.0 ug/dL Normal 37.0-170.0 [facility] Comment on above: Performed By: #### I JADE #### [facility] [address] [place] [address] [address] Siomara Mac LIPID PROFILEon 05-24-2021 CHOL-HDL RATIO NORM SEE BELOW Normal [facility] Comment on above: Result Comment: 3.3 - 4.4 LOW RISK 4.4 - 7.1 AVERAGE RISK 7.1 - 11.0 MODERATE RISK >11.0 HIGH RISK Performed By: #### L IPID, T7, TSH, CMP ####[facility] [address] [place] [id number]. Siomara Mac Cholesterol [Mass/Vol] 203 mg/dL Critically high <=200 [facility] Comment on above: Performed By: #### L IPID, T7, TSH, CMP ####[facility] [address] [place] [id number]. Siomara Mac Cholesterol in HDL [Mass/Vol] 43 mg/dL Normal [facility] Comment on above: Performed By: #### L IPID, T7, TSH, CMP ####[facility] [address] [place] [id number]. Siomara Mac Cholesterol in LDL [Mass/Vol] 123.4 mg/dL Normal [facility] Comment on above: Performed By: #### L IPID, T7, TSH, CMP ####[facility] [address] [place], [place] [id number]. Siomara Mac Cholesterol.total/Chol esterol in HDL [Mass ratio] 4.7 {ratio} Normal [facility] Comment on above: Performed By: #### L IPID, T7, TSH, CMP ####[facility] [address] [place] [id number]. Siomara Mac HDL NORMAL > or = 60 mg/dl - LO W CARDIOVASCULAR RISK <40 mg/dl - HIGH CARDIOVASCULAR RISK Normal [facility] Comment on above: Performed By: #### L IPID, T7, TSH, CMP ####[facility] [address] [place] [id number]. Siomara Mac LDL CALC NORMAL SEE BELOW Normal [facility] Comment on above: Result Comment: <100 mg/dl OPTIMAL 100 - 129 mg/dl NEAR OR ABOVE OPTIMAL 130 - 159 mg/dl BORDERLINE HIGH 160 - 189 mg/dl HIGH >190 mg/dl VERY HIGH Performed By: #### L IPID, T7, TSH, CMP ####[facility] [address] [place] [id number]. Siomara Mac Triglyceride [Mass/Vol] 183 mg/dL Critically high <=150 [facility] Comment on above: Performed By: #### L IPID, T7, TSH, CMP ####[facility] [address] [place] [address]Dr. Siomara Mac VLDL CALC 36.6 mg/dL Normal [facility] Comment on above: Performed By: #### L IPID, T7, TSH, CMP ####[facility] [address] [place] [address]Dr. Siomraa Mac PROF 14(COMP METB)on 022 Albumin [Mass/Vol] 3.7 g/dL Normal 3.5-5.0 [facility] Comment on above: Performed By: #### L IPID, T7, TSH, CMP ####[facility] Ehxwn[address] [place], [place] [address]Dr. Siomara Mac Albumin/Globulin [Mass ratio] 1.0 {ratio} Normal [facility] Comment on above: Performed By: #### L IPID, T7, TSH, CMP ####[facility] [address] [place], [place] [address]Dr. Siomara Mac ALP [Catalytic activity/Vol] 84 U/L Normal 38-126 [facility] Comment on above: Performed By: #### L IPID, T7, TSH, CMP ####[facility] [address] [place], [place] [address]Dr. Siomara Mac ALT [Catalytic activity/Vol] 21 U/L Normal 9-52 [facility] Comment on above: Performed By: #### L IPID, T7, TSH, CMP ####[facility] [address] [place] [address]Dr. Siomara Mac Anion gap [Moles/Vol] 11.1 mmol/L Normal [facility] Comment on above: Performed By: #### L IPID, T7, TSH, CMP ####[facility] [address] [place], [place] [address]Dr. Siomara Mac AST [Catalytic activity/Vol] 14 U/L Normal 14-36 [facility] Comment on above: Performed By: #### L IPID, T7, TSH, CMP ####[facility] Ex[address]jujv[address] [place], [place] [address]Dr. Siomara Mac Bilirubin [Mass/Vol] 0.6 mg/dL Normal 0.2-1.3 [facility] Comment on above: Performed By: #### L IPID, T7, TSH, CMP ####[facility] [address]ommn[address] [place], [place] [address]Dr. Siomara Mac Calcium [Mass/Vol] 8.7 mg/dL Normal 8.4-10.2 [facility] Comment on above: Performed By: #### L IPID, T7, TSH, CMP ####[facility] T[address]vftzyi[address] [place], [place] [address]Dr. Siomara Mac Chloride [Moles/Vol] 106 mmol/L Normal 98-107 [facility] Comment on above: Performed By: #### L IPID, T7, TSH, CMP ####[facility] [address]vb[address] [place], [place] [address]Dr. Siomara Mac CO2 [Moles/Vol] 26.7 mmol/L Normal 22.0-30.[address] [facility] Comment on above: Performed By: #### L IPID, T7, TSH, CMP ####[facility] Cl[address]xkx[address]zz[address] [place], [place] [address]Dr. Siomara Mac Creatinine [Mass/Vol] 0.67 mg/dL Normal 0.52-1.04 [facility] Comment on above: Performed By: #### L IPID, T7, TSH, CMP ####[facility] Happ[address]colmb[address] [place], [place] [address]Dr. Siomara Mac EGFR-AF BURUNDIAN >60 Normal >=[address] [facility] Comment on above: Performed By: #### L IPID, T7, TSH, CMP ####[facility] G[address]cfnsxtfb[address] [place], [place] [address]Dr. Siomara Mac EGFR-NON AF BURUNDIAN >60 Normal >=60 [facility] Comment on above: Performed By: #### L IPID, T7, TSH, CMP ####[facility] [address]rj[address]jnar[address] [place], [place] [address]Dr. Siomara Mac Globulin (S) [Mass/Vol] 3.7 g/dL Normal [facility] Comment on above: Performed By: #### L IPID, T7, TSH, CMP ####[facility] [address] [place] [address]Dr. Siomara Mac Glucose [Mass/Vol] 93 mg/dL Normal 74-106 [facility] Comment on above: Performed By: #### L IPID, T7, TSH, CMP ####[facility] [address] [place] [address]Dr. Siomara Mac Potassium [Moles/Vol] 3.8 mmol/L Normal 3.4-5.0 [facility] Comment on above: Performed By: #### L IPID, T7, TSH, CMP ####[facility] [address] [place], [place] [address]Dr. Siomara Mac Protein [Mass/Vol] 7.4 g/dL Normal 6.1-8.2 [facility] Comment on above: Performed By: #### L IPID, T7, TSH, CMP ####[facility] [address] [place], [place] [address]Dr. Siomara Mac Sodium [Moles/Vol] 140 mmol/L Normal 137-145 [facility] Comment on above: Performed By: #### L IPID, T7, TSH, CMP ####[facility] Of[address]ls[address] [place], [place] [address]Dr. Siomara Mac Urea nitrogen [Mass/Vol] 9.0 mg/dL Normal 7.0-17.0 [facility] Comment on above: Performed By: #### L IPID, T7, TSH, CMP ####[facility] [address] [place], [place] [address]Dr. Siomara Mac Urea nitrogen/Creatinine [Mass ratio] 13.4 mg/mg Normal [facility] Comment on above: Performed By: #### L IPID, T7, TSH, CMP ####[facility] [address] [place], [place] [address]Dr. Siomara Mac TSHon 05-24-2021 TSH 1.343 uIU/mL Normal 0.470-4.680 [facility] Comment on above: Performed By: #### L IPID, T7, TSH, CMP ####[facility] [address] [place], [place] [address]Mu. Siomara Mac TSH RANGE SEE BELOW Normal [facility] Comment on above: Result Comment: <0.3 4 UIU/ml HYPERTHYROID 0.34-5.60 UIU/ml EUTHYROID >5.60 UIU/ml HYPOTHYROID Performed By: #### L IPID, T7, TSH, CMP ####[facility] [address] [place] [id number]. Siomara Mac Vital Signs Date Time Vital Sign Value Performing Clinician Milana blanchard 01-21-2022 01:31-0500 Diastolic blood pressure 80 mm[Hg] Kaylinn Dokken [facility] 01-21-2022 01:31-0500 Heart rate 108 /min Kaylinn Dokken [facility] 01-21-2022 01:31-0500 Mean blood pressure 95 mm[Hg] Kaylinn Dokken [facility] 01-21-2022 01:31-0500 Respiratory rate 21 /min Kaylinn Dokken [facility] 01-21-2022 01:31-0500 SaO2% (BldA) [Mass fraction] 96 % Kaylinn Dokken [facility] 01-21-2022 01:31-0500 Systolic blood pressure 126 mm[Hg] Kaylinn Dokken [facility] 01-21-2022 00:36-0500 Diastolic blood pressure 85 mm[Hg] Kaylinn Dokken [facility] 01-21-2022 00:36-0500 Heart rate 109 /min Kaylinn Dokken [facility] 01-21-2022 00:36-0500 Mean blood pressure 102 mm[Hg] Kaylinn Dokken [facility] 01-21-2022 00:36-0500 Respiratory rate 20 /min Kaylinn Dokken [facility] 01-21-2022 00:36-0500 SaO2% (BldA) [Mass fraction] 95 % Kaylinn Dokken [facility] 01-21-2022 00:36-0500 Systolic blood pressure 135 mm[Hg] Kaylinn Dokken [facility] 01-20-2022 23:26-0500 Diastolic blood pressure 93 mm[Hg] Kaylinn Dokken [facility] 01-20-2022 23:26-0500 Heart rate 102 /min Kaylinn Dokken [facility] 01-20-2022 23:26-0500 Mean blood pressure 99 mm[Hg] Kaylinn Dokken [facility] 01-20-2022 23:26-0500 Respiratory rate 21 /min Kaylinn Dokken [facility] 01-20-2022 23:26-0500 SaO2% (BldA) [Mass fraction] 97 % Kaylinn Dokken [facility] 01-20-2022 23:26-0500 Systolic blood pressure 112 mm[Hg] Kaylinn Dokken [facility] 01-20-2022 22:12-0500 gluc 94 mg/dL Kaylinn Dokken [facility] 01-20-2022 22:12-0500 gluc Kaylinn Dokken [facility] 01-20-2022 21:53-0500 Body temperature 98.24 [degF] Dominique Blackwood [facility] 01-20-2022 21:53-0500 Heart rate 108 /min Dominique Blackwood [facility] 01-20-2022 21:53-0500 Respiratory rate 18 /min cristelmioksana Blackwood [facility] Encounters Encounter Date Encounter Type Care Provider [...] 01-21-2022 Emergency department patient visit Dominique [place] Start: 01-20-2022 End: 01-21-2022 Emergency department patient visit Dominique Blackwood [facility] Start: 01-15-2022 End: 01-16-[address] CE PEREIRA . Facility[facility] Start: 11-14-2021 End: 11-15-[address] CE PEREIRA . [facility] Start: 11-07-2021 End: 12-01-[address] CE PERIERA . Facility[facility] Start: 08-17-2021 End: 08-18-[address] CE PEREIRA . Facility[facility] Start: 05-25-2021 Encounter for genera l adult medical examination without abnormal findings DR CE PEREIRA . [facility] Start: 05-24-2021 End: 05-25-[address] PEREIRA . Facility:[facility] Start: 05-24-2021 End: 05-25-2021 Encounter for general adult medical examination without abnormal findings DR CE PEREIRA . Facility:[facility] Start: 08-14-2016 End: 08-15-2016 Ambulatory DEFAULT PHYSICIAN Facility:[facility] Procedures Date Procedure Procedure Detail Performing Clinician Start: 10-22-2018 Diagnostic endoscopy Kareem Blackwood Appendectomy Dominique Blackwood Cervical (qualifier value) K salas Blackwood Comment on above: Cervical neck fractu re - Ruptured ectopic pre gnancy (disorder) Dominique Blackwood Payers Date Payer Category Payer Unknown [id number] 2.16.8 [id number] 1980 Unknown [id number] 2.16.84 [id number] 1980 Unknown [id number] 2.16.84 0.1.860262.3.579.2.593 1980 Unknown [id number] 2.16.84 0.1.080842.3.579.2.593 1980 Unknown [id number] 2.16.84 0.1.541443.3.579.2.593 1980 Unknown [id number] 2.16.84 0.1.286820.3.579.2.593 1980 Unknown [id number] 2.16.84 0.1.261319.3.579.2.593 1980 Unknown [id number] 2.16.84 0.1.091025.3.579.2.593 1980 Unknown [id number] 2.16.84 0.1.263662.3.579.2.593 1980 Unknown [id number] 2.16.84 0.1.421628.3.579.2.593 1980 Unknown [id number] 2.16.84 0.1.063748.3.579.2.593 1980 Unknown [id number] 2.16.84 [id number] 1959 Unknown [id number] 1959 Unknown [id number] Unknown Social History Date Type Detail Facility Start: 01-20-2022 Tobacco smoking status Ex-smoker (fi nding) [facility] Sex Assigned At Female [facility] Functional Status Date Assessment Result Facility 01-20-2022 Functional Status N/A [facility] Consultation note 01-30-2022 Note Date & Type [...] an 8-9/10. 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 Housework, activities aggravate [...] office in March. CC: Ce Pereira M.D. [facility] [place] Discharge instructions 01-21-2022 Note Date & Type Note Facility 01-21-2022 Hospital Discharg e instructions Patient Education 01/21/2022 01:34:40 Nonspecific Chest Pain, Adult, [id number] Nonspecific Chest Pain Chest pain can be [...] Follow these instructions at home: Medicines Take [id number] and prescription medicines only as told by [...] ?Eating a heart-healthy diet. A diet and presidential support specialist (dietitian) can help you to learn healthy [...] 08/13/2008 Document Revised: 08/28/2018 Document Reviewed: 08/28/2018 [employer] Patient Education [employer]. Follow Up Care 01/20/2022 21:52:01 With:Ce Pereira Address: [address] [place], [place] [id number] Business (1) When:01/24/2022 Comments:Please follow-up with your primary care doctor in the next 2 to 3 days for further evaluation management. Please return to the ED for any new or worsening symptoms. [facility] Evaluation + Plan note 01-20-2022 Note Date [...] Therapy [place] & [place] [place] Saline Lock Insert Troponin 0 Hr. Troponin 3 Hr. Troponin 6 Hr. XR Chest Single View [facility] Clinical Note 11-14-2021 Note Date & Type Note Facility 11-14-2021 Note PROCEDURE: XR SHOULD ER LT 2V or > COMPARISON: None. HISTORY: Neck pain FINDINGS: BONES:No fracture, acute abnormality, or significant arthropathy. SOFT TISSUES:Negative. No visible soft tissue swelling. EFFUSION:None visible. OTHER: Negative. IMPRESSION: No acute disease. Electronically authenticated by: JUSTICE ANDRADE Date: 2021-11-14 10:44 [facility] course Narrative Note Date & Type Note Facility Hospital course Narrative No data available for this section [facility] Progress note Note Date & Type Note Facility Progress note No data available for this section [facility] Summary Purpose Family History No Family History Records FoundNo Family History Records FoundNo Family History Records Found Advance Directives No Advanced Directives Records FoundNo Advanced Directives Records FoundNo Advanced Directives Records Found Additional Source Comments INFORMATION SOURCE (unrecogn ized section and content) DATE CREATED AUTHOR 09/04/2017 [place] DATE CREATED AUTHOR AUTHOR'S ORGANIZ ATION 01/29/2022 [facility] DATE CREATED AUTHOR AUTHOR'S ORGANIZ ATION 05/15/2022 [facility] Patient Care team informatio n (unrecognized section and content) Personnel Name: Ce Pereira MD Address: Address: [address] [place] [address] FOR RECORDS PERTAINING TO PATIENTS WHO ARE [...] BE BASED ON THE PRIMARY CLINICAL RECORDS. [facility]. provides no warranty or guarantee of the accuracy or completeness of information in this document.
== END 2023-05-22 11:24 | disposition home or self-care (01) ==
LOC: LAB 11:28
PROVIDERS: PCP Family Medicine; Visit Provider Family Medicine
DX: F32.9 Major depressive disorder, single episode, unspecified (principal)
CPT/HCPCS: 36415; 82024

== ENCOUNTER 2023-05-27 07:12 | Outpatient (OUT) | payer OTHER, SELFPAY ==
--- NOTE | 2023-05-27 07:15 | MM_ITS ---
Patient Name: AMISHA LAKHANI MR#: [id number] : 1980 Exam Date: 05/27/2023 Ordering Doctor: DR Gregory Pereira . RADIOLOGY REPORT PROCEDURE: MM TOMOSYNTHESIS SCREENING BI COMPARISON: MG MAMM RT UNI W CAD DIG, 02/08/2014. MG MAMM SCREEN 3D MIRA CAD, 01/10/2021. INDICATIONS: Screening Calculator Name NCI Breast Cancer Risk Assessment Tool 5 Year Breast Cancer Risk 1.10% Lifetime Breast Cancer Risk 12.10% Personal Breast Cancer No Personal Ovarian Cancer No Treatments None Family Cancers Aunt-paternal with breast cancer at age 50; Grandfather-maternal with pancreatic cancer at age ~60; Cousin-paternal with breast cancer at age 42; Grandfather-paternal with pancreatic cancer at age ~70; Uncle-paternal with prostate cancer at age ~65. LOCATION: [facility] BREAST COMPOSITION: Extremely dense, which lowers the sensitivity of mammography. FINDINGS: DIAGNOSTIC CATEGORY 2--BENIGN FINDING. NO CHANGE FROM COMPARISON. Scattered benign-appearing calcifications are present. Scattered benign-appearing lymph nodes are present. RIGHT BREAST: No significant suspicious finding. Asymmetric small, stable. LEFT BREAST: No significant suspicious finding. RECOMMENDATIONS: ROUTINE MAMMOGRAM AND CLINICAL EVALUATION IN 12 MONTHS. PLEASE NOTE: A NORMAL MAMMOGRAM DOES NOT EXCLUDE THE POSSIBILITY OF BREAST CANCER. A CLINICALLY SUSPICIOUS PALPABLE LUMP SHOULD BE BIOPSIED. Dictated by: Delfino Rodas MD on 05/27/2023 at 08:54 Approved by: Delfino Rodas MD on 05/27/2023 at 08:56
--- OUTSIDE RECORDS SUMMARY | 2023-05-27 07:16 | XMS_ITS | CCD ---
Author Name Unknown Address [address] [place] [address] Organization [facility] Care Team Providers Care Microbiology Laboratory Manager Name Role Phone PHYSICIAN, DEFAULT Unavailable Unavailable PHYSICIAN, DEFAULT Unavailable Unavailable SELF, REFERRED Unavailable Unavailable Ce Pereira Primary Care Physician [phone] Dominique Blackwood Attending Unavailable HARDEN ., DR [...] HOY ., DR ENCINAS Primary Care Unavailable BARSTOW, DR JUSTICE Romeo Consulting Unavailable HOY ., DR ENCINAS Admitting Unavailable HOY ., DR ENCINAS Primary Care Unavailable HOY ., DR ENCINAS Attending Unavailable Allergies Allergy Classification Reported Allergen(s) Allergy Type Date of Onset Reaction(s) Facility (1 source) penicillin Drug Allergy 06-14-2015 AOF [facility] Repository (4 sources) Penicillins; Translations: [penicillins] Drug allergy 09-20-2012 [facility] Medications Current Medications Medication Drug Class(es) Dates [...] spec) Not detected Normal NOT DETECTED [facility] Comment on above: Result Comment: This test is not yet approved or cleared by the [place] FDA. When there are no FDA-approved or cleared tests available, and other criteria are met, FDA can make tests available under an emergency access mechanism called an Emergency Use Authorization (EUA). The EUA for this test is supported by the [place] of Health and Human Service's (HHS's) declaration [...] SARS-CoV-2. Performed By: #### C VDTBH #### [facility] [address] [place] [address] Dr. Siomara Mac INFLUENZA A AND B [facility] Normal [facility] Comment on above: Result Comment: Nega tive for Flu A protein angiten. Infection due to Flu A cannot be ruled out. Flu A angiten in the sample may be below the detection limit of the test. Performed By: #### I NFLUAB #### [facility] [address] [place] [address] Dr. Siomara Mac INFLUBNEG SEE BELOW Normal [facility] Comment on above: Result Comment: Nega tive for Flu B protein antigen. Infection due to Flu B cannot be ruled out. Flu B antigen in the sample may be below the detection limit of the test. Performed By: #### I NFLUAB #### [facility] [address] [place] [address] Dr. Siomara Mac INFLUENZA A AG Negative Normal NEGATIVE SEE COMMENT [facility] Comment on above: Performed By: #### I NFLUAB #### [facility] [address] [place] [address] Dr. Siomara Mac INFLUENZA B AG Negative Normal NEGATIVE SEE COMMENT [facility] Comment on above: Performed By: #### I NFLUAB #### [facility] [address] [place] [address] Dr. Siomara Mac INTERNAL CONTROLS Within Normal Limits Normal Wi thin Normal Limits [facility] Comment on above: Performed By: #### I NFLUAB #### [facility] [id number] Siomara Mac MRI CSPINE WO CONon [...] JUSTICE ANDRADE Date: 2022-01-25 08:53 Normal [facility] Coding Summary.on 01-24-2022 Coding Summary. CD:[id number] h0bWw+PGhlYWQ+BX2WNIX yH94viRMjxH3RW8dCLF5Q NWCEFQHCAB4EGF6edVA5Z KeyE3DzorBq EwtgpOGwAB26YBv4SXG3i VbvPPphpG8jdOZoR8g6Hz MfWF28sL19PYkjFFTqIiC 3LjZpbjsgbWFy M4zcOaQpfJFwJiq+PHRhY mxlIHdpZHRoPScxMDAlJy SycQkjCY6iQl8pPEJtEXE vbGxhcHNlOiBj t0cnZHToPKulCO8muJfoG 5CumWZ4IIBel9y2Fw02fS I+BDEyFDS6zHwyRHzpo26 0WoIph2voBEV7 nRAuLPmoBKP1O62qy5B9F AQvUMZqIHO1qRE2oI7rvO bresccN9NtyDJgKlL0KRY 7kOKjhA8phYdi tcqpfH2sXdi+H40IOX5WG HVJBQ8PQmd0G5UvJxqkyQ I+HJ45GIWjYN70aAVkpOG au8oaqSj4KaZz KOHxTRX5lTtqNGahw6DkJ XKlR57hvQVoa9J2QWBmbU yutXLgPdEvfYI9lJ4oIQu gscqhp0dgocfg Yesvi3uenp52jO56O78aT LxhWCHmFWT4RPLvMCUgvU zmbe4mbZ1mIo8+PQlut8f oh4sjiYe5DzTb KUVeisFhqVhfDKW9t0QdP p99U0QhrAptk7QnHfg2mj 12tYPtk4D6eGD0NXcyRLK xpN7vYXomLaL1 MKCxDnNvqR47pDAeWVpfO j4eoBqwkYsyOP3zRTLjaq bsCOMnbQ2lBYUipRPnxOv rWJ1gERNiqbuh i873CqEySKF4QQJymOOmC 3HndY8jWoGwIHLnKEYaQ0 QgjNJyKKmdM565YLgwCiI 4SDIchjQjQ2Ck YQHxrBodHtG2f3S2Uv0Qr 8KgaxdyEJD0OShmSDTkJv C2DoAkBqW0J6MyUll7BKR ekAvwTH8jC6Si UVTrcjvvzkwutWB1GJJvT WWuuP27aLUsNAouAt9mq8 J6t630OYEaHILpiN87Lp4 udDogMTBwdCBU rO7dosyja0dvjnoxOpMbE PIdJXg2NQt3ALFwfNfoTg UmOAK7DbM3LQY2eFXvwL0 lzMxnpgrkvL0y Oyc+V88quT9nINK0ESH8i tbfYHXdunLqCU50CC92I1 RyPjwvdGFibGU+PGRpdiB ajAujPD5uQsKw l7feq9IuDRylK0DoCBClA JnwYdd0ADVvVAL7aCM1aA 6eIZQvPKtqh5D6fJN0R9Y onxPncu5pg8oo BKTvCUzbM45elPKet6V6C NPrfVW0MSXtnVdcTeRgiN 93Oyc+HUMvvXoqi8LcHdh of3nxu8ebqJm0 CxWjOAWtniAlsLefEVD8y 5UjCh76N38bDEoiUSDiON ZhFKKbLWSajDengf2lbQ8 wIi8+PGNvbCB3 sBU2hV2dOUGyMxX7YKncY 373GeJtqXSzGfimv5jtz1 gopLx1XxIrSILwlfPokNl xQNQ0x2MjPs40 Y60vWNfxRNMgBYFuLLBlF BCahWfqor5vsU6uAi3+PC 8yr5eelu92yI98kLJ+PHR oMPU0oTycZFck ZNIciV7hPTlqPoG9ESPkS qExkW88kCStPFwkEg0nnJ pcgFmtSU9jWAJnysaxh88 1UvMcv4ydESNe yJJaJJwyJWQ8C17fz1A7H OXuFIQtBEC5jAP3nL7avH lnbjogbGVmdDsgdmVydGl cTNybACboW469 IHRvcDsnPlBhdGllbnQgT eAiOOd2A8QpOmb0ARGzfC keJG1maSCpKRorXy3jpJt gvDsmZT1cDXDg vacko678TaXyv2jrIAWqk NLbNUcxLBH0I40qf2D0KZ PmFEPcWUX8uRE6dK4xhAg nbjogbGVmdDsg wmSuyHmdESmdXZewV205L HRvcDsnPkJpcnRoIERhdG S5EG07ZX94fFOfu2K9tAP 2X2SvEVDiwgwr riejzLD2PGKoHZFrxV33F i9dwPyzHj7yFTReRJY9ZT AwiBHkH8TqxJ4xDpPmZSP eCNXoI8VsxFIi FLatY556NQwnGzG9KXDna sHhL5KlKVFzzKfdTqF1g4 O9Oa9YH8M9ZP65XF55rEW iu8S4hWM2M3Fv XKIgexaqwreauTN6KBNzS QHgrJ88Li2gcDvqFf3yIP PsGQP7KTFjyRJoF1OkzF9 yOiAjMDAwMDAw P8SiwIEhVHlzK578BIwnY lI2VULgcnQiV7AeBFRkdI uyPyE4o2B6Gp4SCHi0LK7 9QC40aMNss0J5 lAS8G1XpVPQdkjaygijlu JW3PZToQBLsxS23Gk5kjE lqDe9pEJTyHXK1UXEyrLK aD3KugD4tZzJz AIPiIHVtF0OfeZUsRMtiJ 928WMkrSmK8MLLuvrGvF3 PvNNMpdJlwQaN6s8V6Nq4 JBVWuXL03UBA9 gKD1JR15UY90F9QbXhcqc GFibGU+PHRhYmxlIHdpZH RoPScxMDAlJyBzdHlsZT0 hGq0lUUXfSBZi bSyglCPyYgDxf5erCNVjP CefAP0xxMgtH6YiyTS2FF Pxo7g9Ui49T31dG3DeuQJ +YZNumVV8lLP6 mL9gKrXuRnR3QAfrD381X kVahWVmGdusn2qkh7xzrS g0EzU0LWBwjaNapVbqSKR 5k5GiOn90U43s IHdpZHRoPSIxNSUiIHZhb Cqjqb1kmU5bYa2+PGNvbC C0zXM0kG4lBaCxMwT8EYc iX312KiVasLZp Gzbac7qbg1fobKm2XvKtY CAtqgYwdGchASC1w2SqXu 64S9GurUvcs0OoSox2xm0 5wJRpy1Q5nQE1 B6GjTRXjzhpoyQLisPscE B5eCIJmqqntUTJukV0jWX LfA1b1LaFrTlM4DHahT9J ljwE6VXHsuSLv RVabTFT7S63pw9H2ZAEuA BNzPXK4fMS6iO5nsUjnuu ogbGVmdDsgdmVydGljYWw jBTlaX453UAEt zOcyMGOsxN6iKMXsiFYka KcwPV6wJCVmscawTaiYMc HVEjywU8TLXKYWRF98NC2 8qNFir1K4qAR4 G7ZpPWFxyccvgullyPB5G OJeXCDvhR79gMDvIDqfDt 5ne4U5w203YNAnIAUnjT2 6Bh9suGvaNJNk cKZHlH7qemtsf6htjioyL bMuQEYnYRa6OCp4PSJyvA lxNfVpDJL4LqW3JBY9wRT zdH6czNlplzeg nI5fWtu+QXRoTTatAWa7K TwvdGQ+ZRRvFFN8gJijJL arOLKfsF1wVGWfX5g4RjC qBiJ2WZzyR4Wt VRXcgmrkZm07rH3cSaBaU fQ7IJtxE3EjmrV6BDNwmX YbQBfmYYZ4B57lf6C4NBB iZCQnCZF6pRT0 xI4toJgbraujvPZrrDqvq zIvjAdtIYluCCnwV173BK RvcDsnPjQxIFllYXJzPC9 4CF20bXMml6X7 fFX8P4PeGRYkrqugdixai WI5BYVoEURnvN11iUMhDT vaAc9bw4W2j521EKKeYUL bqC71Td3pdRsv AXQooRXKsZ9uifzii5szk oydMwUoPZKqDVr4RSw4FZ HhlFhtAjDsUSV1VmI6RVO 3gDPbhN8gxYyu ebyaiU7gUun+RmVtYWxlP W15MK85lCQyb1R1kUM9V5 WjNBWaqagdrtdlcLK5XFN tZCIfmU14kEIl TJodJt7kf7S7f323RJFgQ BZlmR98Mv1qiIbiEBQnwJ HZdY5edopqj0upvwohYzG bVLFeJSw7IUt4 DIUqjPhbZlZzQCJ3AoN2V IE9yQTkgK0moDbwwsgbiH 9wOyc+AF0yexqxehQ1KD5 0PB70P3PqUbnk dGFibGU+PHRhYmxlIHdpZ HRoPScxMDAlJyBzdHlsZT 6rCj7qFMJnIPGtiOlhsCX rGtToq4juWKHr UNnvFC7lnLlaB7TinNR5W MGbj5z1Nk60D72xD0TjyV A+QKIxpEC8tQF3pO4kAuC mNnX6TQeeI037 WnOilNJvNgqxx9qni1fpw Du1WqJfAKCfnnGhpUliJX U2x8UtBm19H47oGEtfXQZ oPSIyMCUiIHZh lOtfsl4rvI0eCu8+PGNvb HL5bNQ0lH5bQmBwNlD9ZZ xmU417HkJumOYyLpbgI65 oZ9MnjPE+PHRy Prj8GYJycWbpPJ6mkEQuQ CfnAc1lBUA7JgFvYlGxSM ddX3XoAGWbwgvsvjaleVR 9RAOvYKAksN36 Lv4mrXofTx9rNAHjPET1T SDwyKPaC0MuvJ6yCvNqLK NgCLMdG6EynMQcRVjsI99 3YQmxXwK9UWMb xdXzU6RgPDNkeTufMlR2f 1K3Hs5CdEjzsQHqJJ6fCn AjQAr3R2LzVls1CRRafHw rIM7ecAEpFIop Ig3qjCazpXckAX1kAERrw xhwm987GtUdf3czNNLhvC WqVDflXSO6T53ay6Y3NAV tNVGiVFA6xCJ0 pF8dbNhuajjeaBTytFlsb nEbhYuiRRrqHGjtG114KS OnsLqxFbZANis4S4MtBya 5ZJOsgGkwOC3d sMLrOPqcJi3brHcqoQwwN O5rPAMxhhydi295GrXnk0 xhDCUilRBcXJcqFDU9Z33 vs1N7IBRtIUZs SJO3qJY5vY2hcZsykmdmi GVmdDsgdmVydGljYWwtYW leY056QNNjrIurVg1DNcx 9P4LnIln2CFYg fAluPP8rgAGzHDshXv7bd MqvhKwrZU3pALLmwbobz8 91McAip4vkRZClcBVvTEk zSSK5X92nr0N6 QASzEDWvZXU2bEC4lY4he GlnbjogbGVmdDsgdmVydG sbGWnpFCfoK059AQUkkWm nPlBheWVyOjwv dGQ+QD48ng88X3CgHhzeK ka0VVRxBDU9lLO7uB2fQH HeWIkyk8D0aBX3Y2GcfsC eyk5tj1euYJPe ZTog (more content not included)... Normal [facility] Auto Diffon 01-21-2022 Basophils/100 WBC (Bld) 0.8 % Normal 0.0-2.0 [facility] Comment on above: Order Comment: Order Added by Discern Expert. Performed By: #### 2 [id number], [id number] #### [facility] [address] [place] [address] Basophils/Leukocytes Auto (Bld) [Pure # fraction] 0.1 E9/L Normal 0.0-0.2 [facility] Comment on above: Order Comment: Order Added by Discern Expert. Performed By: #### 2 [id number], [id number] #### [facility] [address] [place] [address] Eosinophils/100 WBC (Bld) 2.2 % Normal 0.0-8.0 [facility] Comment on above: Order Comment: Order Added by Heather Expert. Performed By: #### 2 [id number], [id number] #### [facility] [address] [place] [address] Eosinophils/Leukocytes Auto (Bld) [Pure # fraction] 0.2 E9/L Normal 0.0-0.5 [facility] Comment on above: Order Comment: Order Added by Heather Expert. Performed By: #### 2 [id number], [id number] #### [facility] [address] [place] [address] Lymphocytes/100 WBC (Bld) 29.8 % Normal 14.0-50.0 [facility] Comment on above: Order Comment: Order Added by Heather Expert. Performed By: #### 2 [id number], [id number] #### [facility] [address] [place] [address] Lymphocytes/Leukocytes Auto (Bld) [Pure # fraction] 2.9 E9/L Normal 1.0-4.0 [facility] Comment on above: Order Comment: Order Added by Heather Expert. Performed By: #### 2 [id number], [id number] #### [facility] [address] [place] [address], [place] [address] Monocytes/100 WBC (Bld) 6.8 % Normal 4.0-14.0 [facility] Comment on above: Order Comment: Order Added by Discern Expert. Performed By: #### 2 [id number], [id number] #### [facility] [address] [place] [address] Monocytes/Leukocytes Auto (Bld) [Pure # fraction] 0.7 E9/L Normal 0.2-1.0 [facility] Comment on above: Order Comment: Order Added by Discern Expert. Performed By: #### 2 [id number], [id number] #### [facility] [address] [place] [address] Neutrophils/100 WBC (Bld) 60.4 % Normal 36.0-75.0 [facility] Comment on above: Order Comment: Order Added by Discern Expert. Performed By: #### 2 [id number], [id number] #### [facility] [address] [place] [address] Neutrophils/Leukocytes Auto (Bld) [Pure # fraction] 5.8 E9/L Normal 2.0-7.5 [facility] Comment on above: Order Comment: Order Added by Discern Expert. Performed By: #### 2 [id number], [id number] #### [facility] [address] [place] [address] B hCG Qualon 01-21-2022 Beta hCG Ql Negative Normal [facility] Comment on above: Performed By: #### 2 [id number] #### [facility] [address] [place] [address] BMPon 01-21-2022 Creatinine [Mass/Vol] 0.9 mg/dL Normal 0.5-1.3 [facility] Comment on above: Performed By: #### 2 [id number], [id number] #### [facility] [address] [place] [address] Urea nitrogen [Mass/Vol] 13 mg/dL Normal 5-21 [facility] Comment on above: Performed By: #### 2 [id number], [id number] #### [facility] [address] [place] [address] Urea nitrogen/Creatinine [Mass ratio] 14 No Units Normal 10-20 [facility] Comment on above: Performed By: #### 2 [id number], [id number] #### [facility] [address] [place] [address] Anion gap [Moles/Vol] 13 mmol/L Normal 6-16 [facility] Comment on above: Performed By: #### 2 [id number], [id number] #### [facility] [address] [facility] [address] Calcium [Mass/Vol] 8.9 mg/dL Normal 8.9-11.1 [facility] Comment on above: Performed By: #### 2 [id number], [id number] #### [facility] [address] [place] [address] Chloride [Moles/Vol] 104 mmol/L Normal 101-111 [facility] Comment on above: Performed By: #### 2 [id number], [id number] #### [facility] [address] [place] [address] CO2 [Moles/Vol] 23 mmol/L Normal 21-31 [facility] Comment on above: Performed By: #### 2 [id number], [id number] #### [facility] [address] [place] [address] Glucose [Mass/Vol] 105 mg/dL Normal 55-199 [facility] Comment on above: Result Comment: If t his glucose result represents a fasting glucose, interpretation should refer to the following reference range: 55-99 mg/dL Performed By: #### 2 [id number], [id number] #### [facility] [address] [place] [address] Potassium [Moles/Vol] 3.4 mmol/L Low 3.5-5.3 [facility] Comment on above: Performed By: #### 2 [id number], [id number] #### [facility] [address] [place] [address] Sodium [Moles/Vol] 137 mmol/L Normal 135-145 [facility] Comment on above: Performed By: #### 2 [id number], [id number] #### [facility] [address] [place] [address] CBC w/ Auto Diffon Erythrocyte distribution width (RBC) [Ratio] 12.3 % Normal 10.9-14.2 [facility] Comment on above: Performed By: #### 2 [id number], [id number] #### [facility] [address] [place] [address] Hematocrit (Bld) [Volume fraction] 37.2 % Normal 34.0-46.0 [facility] Comment on above: Performed By: #### 2 [id number], [id number] #### [facility] [address] [place] [address] Hemoglobin (Bld) [Mass/Vol] 13.2 g/dL Normal 12.0-16.0 [facility] Comment on above: Performed By: #### 2 [id number], [id number] #### [facility] [address] [place] [address] MCH (RBC) [Entitic mass] 31.1 pg Normal 27.0-34.0 [facility] Comment on above: Performed By: #### 2 [id number], [id number] #### [facility] [address] [place] [address] MCHC (RBC) [Mass/Vol] 35.4 g/dL Normal 31.4-36.0 [facility] Comment on above: Performed By: #### 2 [id number], [id number] #### [facility] [address] [place] [address] MCV (RBC) [Entitic vol] 87.9 fL Normal 80.0-100.0 [facility] Comment on above: Performed By: #### 2 [id number], [id number] #### [facility] [address] [place] [address] Platelet mean volume (Bld) [Entitic vol] 7.7 fL Normal 6.4-10.8 [facility] Comment on above: Performed By: #### 2 [id number], [id number] #### [facility] [address] [place] [address] Platelets (Bld) [#/Vol] 232.0 E9/L Normal 150.0-500.0 [facility] Comment on above: Performed By: #### 2 [id number], [id number] #### [facility] [address] [place] [address] RBC (Bld) [#/Vol] 4.2 E12/L Low 4.3-5.9 [facility] Comment on above: Performed By: #### 2 [id number], [id number] #### [facility] [address] [place] [address] WBC corrected for nucl RBC Auto (Bld) [#/Vol] 9.6 E9/L Normal 4.0-11.0 [facility] Comment on above: Performed By: #### 2 [id number], [id number] #### [facility] [address] [place] [address] CHEMISTRYOrdered By: SYSTEM SYSTEM on 01-21-2022 Troponin I.cardiac [Mass/Vol] 3.80 pg/mL Low 10.10 - 27.10 pg/mL [facility] Remisol D-Dimeron 01-21-2022 Fibrin D-dimer FEU (PPP) [Mass/Vol] 294 [id number] Normal 215-500 [facility] Comment on above: Result Comment: This assay [...] infections Liver cirrhosis Performed By: #### 2 [id number], [id number] #### [facility] [address] [place] [address] Discharge Instructionson Discharge Instructions [id number]# 1.00CD:127 Normal [facility] ED Clinical Summaryon 2021 ED Clinical Summary [address] [address] ED Clinical Summary Person Information Name: AMISHA LAKHANI [facility] Age: 41 Years : 1980 Sex: Female Language: Czech PCP: Ce Pereira MD Marital Status: Single [...] 01/21/2022 01:34:40 01/21/2022 01:34:40 01/21/2022 01:34:40 ADDRESS: [address] [place] [address] [id number] PHYS DOC NOTES: MEDICAL INFORMATION: Prescriptions Given: PATIENT EDUCATION INFORMATION: Instructions: Nonspecific Chest Pain, Adult, Qdkz-lj-Kplt Follow up: With: Address: When: Ce Kelli [address] [place] [address], [place] [address] [place] [address] Business (1) In 3 days 01/24/2022 Comments: Please follow-up with your primary care doctor in the next 2 to 3 days for further evaluation management. Please return to the ED for any new or worsening symptoms. DIAGNOSIS: Chest pain Normal [facility] ED Note-Physicianon 01-22-20 22 ED Note-Physician Basic [...] intravenous soluti (more content not included)... Normal [facility] Comment on above: Result Comment: Elec tronically [...] these instructions at home: Medicines ? Take nhxy-psj-ndeexwy and prescription medicines only as told by [...] Eating a heart-healthy diet. A diet and food and nutrition professor (dietitian) can help you to learn healthy [...] Reviewed: 08/28/2018 Elsevier Patient Education ? 2020 [employer] Normal [facility] ED Patient Summaryon 022 ED Patient Summary [place] [id number] Patient Discharge Instructions Person Information Name: AMISHA LAKHANI Age: 41 Years Arrival Date: 01/20/2022 21:51:07 Discharge Diagnosis: Chest pain Primary Care Physician: Ce Pereira MD Provider Information Primary Provider: Dominique Blackwood DO [employer] Consultant:None The exam and treatment you received in the Emergency Department were for an urgent problem and are not intended as complete care. It is important that you follow up with a doctor, nurse practitioner, or physician?s assistant professor of economics for ongoing care. If your symptoms become worse or you do not improve as expected and you are unable to reach your usual health care provider, you should return to the Emergency Department. We are available 24 hours a day. AMISHA LAKHANI has been given the following list of patient education materials, prescriptions and follow-up instructions: Follow-up Instructions: With: Address: When: Ce Pereira [address] [place] [address], [facility] [place] [id number] Business (1) In 3 days 01/24/2022 Comments: [...] Patient Education Materials: Nonspecific Chest Pain, Adult, Xspc-fu-Cyaq A MESSAGE TO ALL PATIENTS REGARDING OPIOIDS PRESCRIPTION OPIOIDS: WHAT YOU NEED TO KNOW Prescription opioids can be used to help relieve muypimdw-mx-adaocm pain and are often prescribed following a [...] If y (more content not included)... Normal [facility] EMS Documentationon 01-22-20 EMS Documentation [id number]# 1.00CD:127 Normal [facility] Hep Func Panelon 01-21-2022 Bilirubin.indirect [Mass or moles/Vol] UTC Abnormal 0.1-0.9 [facility] Comment on above: Result Comment: Resu lt verified by Discern Rule. Performed result UTC (Unable to Calculate) was sent as an Alpha code due the inability to calculate a valid numeric value. Performed By: #### 2 [id number] #### [facility] [address] [place] [address] Albumin [Mass/Vol] 3.7 g/dL Normal 3.3-5.0 [facility] Comment on above: Performed By: #### 2 [id number] #### [facility] [address] [place] [address] Albumin/Globulin (S) [Mass conc ratio] 1.1 Normal 1.1-2.2 [facility] Comment on above: Performed By: #### 2 [id number] #### [facility] [address] [place] [address] ALP [Catalytic activity/Vol] 60 Int._Unit/L Normal 21-98 [facility] Comment on above: Performed By: #### 2 [id number] #### [facility] [address] [place] [address] ALT No additional P-5'-P [Catalytic activity/Vol] 17 Int._Unit/L Normal 6-46 [facility] Comment on above: Performed By: #### 2 [id number] #### [facility] [address] [place] [address] AST [Catalytic activity/Vol] 18 Int._Unit/L Normal 5-43 [facility] Comment on above: Performed By: #### 2 [id number] #### [facility] [address] [place] [address] Bilirubin [Mass/Vol] 0.4 mg/dL Normal 0.0-1.1 [facility] Comment on above: Performed By: #### 2 [id number] #### [facility] [address] [place] [address] Bilirubin.direct [Mass/Vol] mg/dL Normal 0.1-0.4 [facility] Comment on above: Performed By: #### 2 [id number] #### [facility] [address] [place] [address] Globulin (S) [Mass/Vol] 3.3 g/dL Normal 1.4-4.0 [facility] Comment on above: Performed By: #### 2 [id number] #### [facility] [address] [place] [address] Protein [Mass/Vol] 7.0 g/dL Normal 6.0-7.8 [facility] Comment on above: Performed By: #### 2 [id number] #### [facility] [address] [place] [address] Influenza A&B Agon 2 Influenzae A Ag Negative Normal Negative [facility] Comment on above: Performed By: #### 2 [id number] #### [facility] [address] [place] [address] Influenzae B Ag Negative Normal Negative [facility] Comment on above: Result Comment: Test sensitivity and specificity vary for age group, specimen type, antigen types, and prevalence of disease. Test results must be evaluated in conjunction with other clinical data available to the physician. Individuals who received nasally administered Influenza A vaccine may have positive test results up to 3 days after vaccination. Performed By: #### 2 [id number] #### [facility] [address] [place] [id number] Monitor Recordon 01-21-2022 Monitor Record [id number]# [id number] Normal [facility] PT & PTTon 01-21-2022 aPTT Coag (PPP) [Time] 32.7 second(s) Normal 25.1-36.5 [facility] Comment on above: Result Comment: Para meter [...] same coagulation reagent and instrumentation as [facility]. Currently there are no coagulation studies available worldwide for children to 14 days, and no normal ranges. Heparin therapeutic range (represented by Anti-Factor Xa activity of 0.2 - 0.4 U/mL) corresponds to PTT of 56.6 - 109.0 sec. Performed By: #### 2 [id number] #### [facility] [address] [place] [address] INR Coag (PPP) [Relative time] 1.1 {INR} Invalid Interpretation Code [facility] Comment on above: Result Comment: INR results are specifically intended to assess patients stabilized on long-term Anticoagulation therapy suggested INR?s ?Less Intensive Anticoagulation? 2.0 ? 3.0 Conventional Range 3.0 ? 4.5 Performed By: #### 2 [id number] #### [facility] [address] [place] [address] PT Coag (PPP) [Time] 11.8 second(s) Normal 9.4-12.5 [facility] Comment on above: Result Comment: 15 d [...] same coagulation reagent and instrumentation as [facility]. Currently there are no coagulation studies available worldwide for children to 14 days, and no normal ranges. Performed By: #### 2 [id number] #### [facility] [address] [place] [address] Rapid COVID Antigen ([facility])on 01-21-2022 Rapid COV Int NEG [place] [place] Normal [facility] [facility] Comment on above: Performed By: #### 2 [id number], [id number] #### [facility] [address] [place] [address] Rapid COV Int POS Ctl Pass Normal [facility] Comment on above: Performed By: #### 2 [id number], [id number] #### [facility] [address] [place] [address] SARS-CoV+SARS-CoV-2 (COVID-19) Ag IA.rapid Ql (Resp) Not detected Normal Not Detected [facility] Comment on above: Result Comment: The [employer]? System for Rapid Detection of SARS-CoV-2 is [...] or revoked sooner. Performed By: #### 2 [id number], [id number] #### [facility] [address] [place] [address] ADMITTED TO INTENSIVE CARE UNIT FOR CONDITION OF INTEREST:FIND:PT: NO Normal [facility] Comment on above: Performed By: #### 2 [id number], [id number] #### [facility] [address] [place] [address] EMPLOYED IN A HEALTHCARE SETTING:FIND:PT: NO Normal [facility] Comment on above: Performed By: #### 2 [id number], [id number] #### [facility] [address] [place] [address] FIRST TEST FOR CONDITION OF INTEREST:FIND:PT: YES Normal [facility] Comment on above: Performed By: #### 2 [id number], [id number] #### [facility] [address] [place] [address] HAS SYMPTOMS RELATED TO CONDITION OF INTEREST:FIND:PT: YES Normal [facility] Comment on above: Performed By: #### 2 [id number], [id number] #### [facility] [address] [place] [address] HOSPITALIZED FOR CONDITION OF INTEREST:FIND:PT: NO Normal [facility] Comment on above: Performed By: #### 2 [id number], [id number] #### [facility] [address] [place] [address] STATUS:FIND:PT: NO Normal [facility] Comment on above: Performed By: #### 2 [id number], [id number] #### [facility] [address] [place] [address] RESIDES IN A [facility] CARE SETTING:FIND:PT: NO Normal [facility] Comment on above: Performed By: #### 2 [id number], [id number] #### [facility] [address] [place] [address] Troponin 0 Hr.on 01-21-2022 Troponin I.cardiac [Mass/Vol] 2.80 pg/mL Low 10.10-27.10 [facility] Comment on above: Result Comment: The 95% CI (Confidence Interval) PPV (Positive Predictive Value) for myocardial infarction in females is 38 pg/mL, in males 51 pg/mL. The results should be used in conjunction with clinical conditions of myocardial infarction. (Access High Sensitivity Troponin I Instructions For Use, [employer], October 2017) Performed By: #### 2 [id number] #### [facility] [address] [place] [address] Troponin 3 Hr.on 01-21-2022 Troponin I.cardiac [Mass/Vol] 3.80 pg/mL Low 10.10-27.10 [facility] Comment on above: Result Comment: The 95% CI (Confidence Interval) PPV (Positive Predictive Value) for myocardial infarction in females is 38 pg/mL, in males 51 pg/mL. The results should be used in conjunction with clinical conditions of myocardial infarction. (Access High Sensitivity Troponin I Instructions For Use, [employer], October 2017) Performed By: #### 1 [id number] #### [facility] [address] [place], [place] [id number] XR Chest Single Viewon 01-21 XR Chest [...] V. Transcribed by: KATI Technologist: IGLESIA Kan [facility] eGFRon 01-21-2022 GFR/1.73 sq M.predicted among blacks MDRD (S/P/Bld) [Vol rate/Area] mL/min/{1.73_m2} Normal >=59 [facility] Comment on above: Order Comment: Order added by Discern Expert. Result Comment: eGFR is race adjusted. AA=. Performed By: #### 2 [id number] #### [facility] [address] [place] [address] GFR/1.73 sq M.predicted among non-blacks MDRD (S/P/Bld) [Vol rate/Area] mL/min/{1.73_m2} Normal >=59 [facility] Comment on above: Order Comment: Order added by Discern Expert. Result Comment: [employer] alysha kidney disease could be indicated at eGFR's of less than 60 mL/min/1.73m2. Kidney failure is indicated at less than 15 mL/min/1.73m2. Performed By: #### 2 [id number] #### [facility] [address] [place] [address] CHEMISTRYOrdered By: SYSTEM SYSTEM on 01-20-2022 Albumin [...] mL/min/1.73 m2 Normal >=59mL/min/1 .73 m2 [facility] Chem S GFR/1.73 sq M.predicted among non-blacks MDRD (S/P/Bld) [Vol rate/Area] mL/min/1.73 m2 Normal >=59mL/min/1 .73 m2 [facility] Chem S Globulin (S) [...] mg/dL Normal 55 - 99 mg/dL [facility] POC Subsection Comment on above: Result Comment: Jace winter RN/ POC Device SN [id number] Invalid Interpretation Code FT POC Subsection POC User ID [id number] Invalid Interpretation Code [facility] POC Subsection POC Username TIN SONG Invalid Interpretation Code [facility] POC Subsection COAGULATIONOrdered By: [...] Normal 9.4 - 1 2.5 second(s) [facility] Auto Coag Capillary Glucose POCon 01-09 Glucose [Mass/Vol] 94 mg/dL Normal 55-99 [facility] Comment on above: Result Comment: Jace ENGLISH Performed By: #### 2 [id number] #### [facility] [address] [place] [address] Consent for Treatmenton 01-09 Consent for Treatment [id number] 211 [id number]:127 Normal [facility] HEMATOLOGYOrdered By: SYSTEM SYSTEM on 01-20-2022 Basophils/100 [...] - 7.5 E9/L [facility] HemeAutoSS HEMATOLOGYOrdered By: eDepak Gay on 01-20-2022 Erythrocyte distribution width (RBC) [...] Negative (01/20/22 10:17 PM) Normal Negative [facility] Man Sero Influenzae B Ag Negative (01/20/22 10:17 PM) Normal Negative [facility] Man Sero Rapid COV Int NEG Ctl Pass (01/20/22 10:17 PM) Normal [facility] Man Sero Rapid COV Int POS Ctl Pass (01/20/22 10:17 PM) Normal [facility] Man Sero SARS-CoV+SARS-CoV-2 (COVID-19) Ag IA.rapid Ql (Resp) Not Detected (01/20/22 10:17 PM) Normal Not Detected [facility] Man Sero SEROLOGYOrdered By: Elysia Gay on 01-20-2022 Beta hCG Ql Negative (01/20/22 10:10 PM) Normal [facility] Man Sero XR CSPINE MIN 4 VIEWSon 11- XR CSPINE MIN 4 VIEWS EXAMINATION: XR CSPINE MIN 4 VIEWS HISTORY: Cervical radiculopathy COMPARISON: 08/17/2021 FINDINGS: BONES: Anterior fusion C5-C6 with no mechanical failure. DISC SPACES: Interbody spacers C5-C6 PARASPINOUS: Negative. No paraspinous abnormality is seen. OTHER: Negative. IMPRESSION: Stable C5-C6 fusion Electronically authenticated by: JUSTICE ANDRADE Date: 2022-01-15 17:34 Normal [facility] XR CSPINE MIN 4 VIEWSon [...] by: JUSTICE ANDRADE Date: 2021-08-18 07:29 Normal [facility] INSULINon 05-25-2021 Insulin 13.9 uIU/mL Normal 2.6-24.9 [facility] Comment on above: Performed By: #### I NSULIN #### [facility] [address] [place] [address] Dr. Siomara Mac CBC AUTO DIFFon 05-24-2021 BASO # 0.0 103/ul Normal 0.0-0.1 [facility] Comment on above: Performed By: #### C BC ####[facility] [address] [place] [address]DrTin Mac Basophils/100 WBC (Bld) 0.5 % Normal 0.2-2.0 [facility] Comment on above: Performed By: #### C BC ####[facility] [address] [place], [place] [address]DrTin Mac EO # 0.2 103/ul Normal 0.0-0.7 [facility] Comment on above: Performed By: #### C BC ####[facility] [address] [place], [place] [address]DrTin Mac Eosinophils/100 WBC (Bld) 3.7 % Normal 0.9-7.0 [facility] Comment on above: Performed By: #### C BC ####[facility] [address] [place], [place] [address]DrTin Mac Erythrocyte distribution width (RBC) [Ratio] 11.6 % Normal 11.0-15.0 [facility] Comment on above: Performed By: #### C BC ####[facility] [address] [place], [place] [address]DrTin Mac Hematocrit (Bld) [Volume fraction] 41.7 % Normal 36.0-48.0 [facility] Comment on above: Performed By: #### C BC ####[facility] [address] [place], [place] [address]Dr. Siomara Mac Hemoglobin (Bld) [Mass/Vol] 14.2 g/dL Normal 12.0-16.0 [facility] Comment on above: Performed By: #### C BC ####[facility] [address] [place], [place] [address]DrTin Mac IG # 0.03 10e3/ul Normal 0.00-0.03 [facility] Comment on above: Performed By: #### C BC ####[facility] [address] [place] [address]Dr. Siomara Bubba IG % 0.5 % Normal 0.0-0.5 [facility] Comment on above: Performed By: #### C BC ####[facility] [address] [place] [address]Dr. Siomara Bubba LYMPH # 2.1 103/ul Normal 1.2-3.8 [facility] Comment on above: Performed By: #### C BC ####[facility] [address] [place] [address]Dr. Siomara Bubba Lymphocytes/100 WBC (Bld) 33.5 % Normal 20.5-60.0 [facility] Comment on above: Performed By: #### C BC ####[facility] [address] [place] [address]Dr. Siomara Bubba MANUAL DIFF REQ NO Normal [facility] Comment on above: Performed By: #### C BC ####[facility] [address] [place] [address]Dr. Siomara Bubba MCH (RBC) [Entitic mass] 31.2 pg Normal 26.7-34.0 [facility] Comment on above: Performed By: #### C BC ####[facility] [address] [place] [address]Dr. Siomara Mac MCHC (RBC) [Mass/Vol] 34.1 g/dL Normal 29.9-35.2 [facility] Comment on above: Performed By: #### C BC ####[facility] [address] [place] [address]Dr. Siomara Bubba MCV (RBC) [Entitic vol] 91.6 fL Normal 81.0-99.0 [facility] Comment on above: Performed By: #### C BC ####[facility] [address] [place], [place] [address]Dr. Gillbello Mac MONO # 0.3 103/ul Normal 0.3-0.8 [facility] Comment on above: Performed By: #### C BC ####[facility] [address] [place] [address]Dr. Siomara Mac Monocytes/100 WBC (Bld) 5.4 % Normal 1.7-12.0 [facility] Comment on above: Performed By: #### C BC ####[facility] [address] [place] [address]Dr. Siomara Mac NEUT # 3.6 103/ul Normal 1.4-6.5 [facility] Comment on above: Performed By: #### C BC ####[facility] [address] [place] [address]Dr. Siomara Mac Neutrophils/100 WBC (Bld) 56.4 % Normal 43.0-75.0 [facility] Comment on above: Performed By: #### C BC ####[facility] [address] [place] [address]Dr. Siomara Mac Platelet mean volume (Bld) [Entitic vol] 9.4 fL Critically low 9.5-13.5 [facility] Comment on above: Performed By: #### C BC ####[facility] [address] [place] [address]Dr. Siomara Mac PLT 292 103/ul Normal 150-450 [facility] Comment on above: Performed By: #### C BC ####[facility] [address] [place], [place] [address]Dr. Siomara Mac RBC 4.55 106/ul Normal 4.20-5.40 [facility] Comment on above: Performed By: #### C BC ####[facility] [address] [place] [address]Dr. Siomara Mac WBC 6.3 103/ul Normal 4.0-11.0 [facility] Comment on above: Performed By: #### C BC ####[facility] [address] [place], [place] [address]Dr. Siomara Mac FREE THYROXINE INDEX T7on FTI 2.41 Normal [facility] Comment on above: Performed By: #### L IPID, T7, TSH, CMP ####[facility] [address] [place] [address]DrTin Mac T3U 37.0 % Normal 23.5-40.5 [facility] Comment on above: Performed By: #### L IPID, T7, TSH, CMP ####[facility] [address] [place], [place] [address]ZtTin Mac T4 [Mass/Vol] 6.50 ug/dL Normal 5.53-11.00 The [facility] Comment on above: Performed By: #### L IPID, T7, TSH, CMP ####[facility] [address] [place] [address]DrTin Mac GLYCOHEMOGLOBIN A1Con 2021 ADA RECOMMENDATION ADA THERAPEUTIC TARGET 6.0 - 7.0 ACTION SUGGESTED > 7.0 Normal [facility] Comment on above: Performed By: #### A 1C #### [facility] [address] [place] [address] [address] Siomara Mac Glucose [Mass/Vol] 97 mg/dL Normal [facility] Comment on above: Performed By: #### A 1C #### [facility] [address] [place] [address] [address] Siomara Mac HbA1c (Bld) [Mass fraction] 5.0 % Normal <=6.0 [facility] Comment on above: Performed By: #### A 1C #### [facility] [address] [place] [address] [address] Siomara Mac IRONon 05-24-2021 Iron [Mass/Vol] 101.0 ug/dL Normal 37.0-170.0 [facility] Comment on above: Performed By: #### I JADE #### [facility] [address] [place] [address] [address] Siomara Mac LIPID PROFILEon 05-24-2021 CHOL-HDL RATIO NORM SEE BELOW Normal [facility] Comment on above: Result Comment: 3.3 - 4.4 LOW RISK 4.4 - 7.1 AVERAGE RISK 7.1 - 11.0 MODERATE RISK >11.0 HIGH RISK Performed By: #### L IPID, T7, TSH, CMP ####[facility] [address] [place] [address]Dr. Siomara Mac Cholesterol [Mass/Vol] 203 mg/dL Critically high <=200 [facility] Comment on above: Performed By: #### L IPID, T7, TSH, CMP ####[facility] [address] [place] [address]Dr. Siomara Mac Cholesterol in HDL [Mass/Vol] 43 mg/dL Normal [facility] Comment on above: Performed By: #### L IPID, T7, TSH, CMP ####[facility] [address] [place] [address]Dr. Siomara Mac Cholesterol in LDL [Mass/Vol] 123.4 mg/dL Normal [facility] Comment on above: Performed By: #### L IPID, T7, TSH, CMP ####[facility] [address] [place], [place] [address]Dr. Siomara Mac Cholesterol.total/Chol esterol in HDL [Mass ratio] 4.7 {ratio} Normal [facility] Comment on above: Performed By: #### L IPID, T7, TSH, CMP ####[facility] [address] [place] [address]Dr. Siomara Mac HDL NORMAL > or = 60 mg/dl - LO W CARDIOVASCULAR RISK <40 mg/dl - HIGH CARDIOVASCULAR RISK Normal [facility] Comment on above: Performed By: #### L IPID, T7, TSH, CMP ####[facility] [address] [place] [address]Dr. Siomara Mac LDL CALC NORMAL SEE BELOW Normal [facility] Comment on above: Result Comment: <100 mg/dl OPTIMAL 100 - 129 mg/dl NEAR OR ABOVE OPTIMAL 130 - 159 mg/dl BORDERLINE HIGH 160 - 189 mg/dl HIGH >190 mg/dl VERY HIGH Performed By: #### L IPID, T7, TSH, CMP ####[facility] [address] [place] [address]Dr. Siomara Mac Triglyceride [Mass/Vol] 183 mg/dL Critically high <=150 [facility] Comment on above: Performed By: #### L IPID, T7, TSH, CMP ####[facility] [address] [place] [address]Dr. Siomara Mac VLDL CALC 36.6 mg/dL Normal [facility] Comment on above: Performed By: #### L IPID, T7, TSH, CMP ####[facility] [address] [place] [address]Dr. Siomara Mac PROF 14(COMP METB)on 022 Albumin [Mass/Vol] 3.7 g/dL Normal 3.5-5.0 [facility] Comment on above: Performed By: #### L IPID, T7, TSH, CMP ####[facility] [address] [place], [place] [address]Dr. Siomara Mac Albumin/Globulin [Mass ratio] 1.0 {ratio} Normal [facility] Comment on above: Performed By: #### L IPID, T7, TSH, CMP ####[facility] [address] [place], [place] [address]Dr. Siomara Mac ALP [Catalytic activity/Vol] 84 U/L Normal 38-126 [facility] Comment on above: Performed By: #### L IPID, T7, TSH, CMP ####[facility] [address] [place], [place] [address]Dr. Siomara Mac ALT [Catalytic activity/Vol] 21 U/L Normal 9-52 [facility] Comment on above: Performed By: #### L IPID, T7, TSH, CMP ####[facility] [address] [place] [address]Dr. Siomara Mac Anion gap [Moles/Vol] 11.1 mmol/L Normal [facility] Comment on above: Performed By: #### L IPID, T7, TSH, CMP ####[facility] [address] [place], [place] [address]Dr. Siomara Mac AST [Catalytic activity/Vol] 14 U/L Normal 14-36 [facility] Comment on above: Performed By: #### L IPID, T7, TSH, CMP ####[facility] [address] [place], [place] [address]Dr. Siomara Mac Bilirubin [Mass/Vol] 0.6 mg/dL Normal 0.2-1.3 [facility] Comment on above: Performed By: #### L IPID, T7, TSH, CMP ####[facility] [address] [place], [place] [address]Dr. Siomara Mac Calcium [Mass/Vol] 8.7 mg/dL Normal 8.4-10.2 [facility] Comment on above: Performed By: #### L IPID, T7, TSH, CMP ####[facility] [address] [place], [place] [address]Dr. Siomara Mac Chloride [Moles/Vol] 106 mmol/L Normal 98-107 [facility] Comment on above: Performed By: #### L IPID, T7, TSH, CMP ####[facility] [address] [place], [place] [address]Dr. Siomara Mac CO2 [Moles/Vol] 26.7 mmol/L Normal 22.0-30.0 [facility] Comment on above: Performed By: #### L IPID, T7, TSH, CMP ####[facility] [address] [place], [place] [address]Dr. Siomara Mac Creatinine [Mass/Vol] 0.67 mg/dL Normal 0.52-1.04 [facility] Comment on above: Performed By: #### L IPID, T7, TSH, CMP ####[facility] [address] [place], [place] [address]Dr. Siomara Mac EGFR-AF TUVALUAN >60 Normal >=60 [facility] Comment on above: Performed By: #### L IPID, T7, TSH, CMP ####[facility] [address] [place], [place] [address]Dr. Siomara Mac EGFR-NON AF TUVALUAN >60 Normal >=60 [facility] Comment on above: Performed By: #### L IPID, T7, TSH, CMP ####[facility] [address] [place], [place] [address]Dr. Siomara Mac Globulin (S) [Mass/Vol] 3.7 g/dL Normal [facility] Comment on above: Performed By: #### L IPID, T7, TSH, CMP ####[facility] [address] [place] [address]Dr. Siomara Mac Glucose [Mass/Vol] 93 mg/dL Normal 74-106 [facility] Comment on above: Performed By: #### L IPID, T7, TSH, CMP ####[facility] [address] [place] [address]Dr. Siomara Mac Potassium [Moles/Vol] 3.8 mmol/L Normal 3.4-5.0 [facility] Comment on above: Performed By: #### L IPID, T7, TSH, CMP ####[facility] [address] [place], [place] [address]Dr. Siomara Mac Protein [Mass/Vol] 7.4 g/dL Normal 6.1-8.2 [facility] Comment on above: Performed By: #### L IPID, T7, TSH, CMP ####[facility] [address] [place], [place] [address]Dr. Siomara Mac Sodium [Moles/Vol] 140 mmol/L Normal 137-145 [facility] Comment on above: Performed By: #### L IPID, T7, TSH, CMP ####[facility] [address] [place], [place] [address]Dr. Siomara Mac Urea nitrogen [Mass/Vol] 9.0 mg/dL Normal 7.0-17.0 [facility] Comment on above: Performed By: #### L IPID, T7, TSH, CMP ####[facility] [address] [place], [place] [address]Dr. Siomara Mac Urea nitrogen/Creatinine [Mass ratio] 13.4 mg/mg Normal [facility] Comment on above: Performed By: #### L IPID, T7, TSH, CMP ####[facility] [address] [place], [place] [address]Dr. Siomara Mac TSHon 05-24-2021 TSH 1.343 uIU/mL Normal 0.470-4.680 The [facility] Comment on above: Performed By: #### L IPID, T7, TSH, CMP ####[facility] [address] [place], [place] [address]Zg. Siomara Mac TSH RANGE SEE BELOW Normal [facility] Comment on above: Result Comment: <0.3 4 UIU/ml HYPERTHYROID 0.34-5.60 UIU/ml EUTHYROID >5.60 UIU/ml HYPOTHYROID Performed By: #### L IPID, T7, TSH, CMP ####[facility] [address] [place] [address]Dr. Siomara Mac Vital Signs Date Time Vital Sign Value Performing Clinician Milana blanchard 01-21-2022 01:31-0500 Diastolic blood pressure 80 mm[Hg] Kaylinn Dokken [facility] [place] 01-21-2022 01:31-0500 Heart rate 108 /min Kaylinn Dokken [facility] 01-21-2022 01:31-0500 Mean blood pressure 95 mm[Hg] Kaylinn Dokken [facility] 01-21-2022 01:31-0500 Respiratory rate 21 /min Kaylinn Dokken [facility] 01-21-2022 01:31-0500 SaO2% (BldA) [Mass fraction] 96 % Kaylinn Dokken [facility] 01-21-2022 01:31-0500 Systolic blood pressure 126 mm[Hg] Kaylinn Dokken [facility] 01-21-2022 00:36-0500 Diastolic blood pressure 85 mm[Hg] Kaylinn Dokken [facility] 01-21-2022 00:36-0500 Heart rate 109 /min Kaylinn Dokken [facility] 01-21-2022 00:36-0500 Mean blood pressure 102 mm[Hg] Kaylinn Dokken [facility] 01-21-2022 00:36-0500 Respiratory rate 20 /min Kaylinn Dokken [facility] 01-21-2022 00:36-0500 SaO2% (BldA) [Mass fraction] 95 % Kaylinn Dokken [facility] 01-21-2022 00:36-0500 Systolic blood pressure 135 mm[Hg] Kaylinn Dokken [facility] 01-20-2022 23:26-0500 Diastolic blood pressure 93 mm[Hg] Kaylinn Dokken [facility] 01-20-2022 23:26-0500 Heart rate 102 /min Kaylinn Dokken [facility] 01-20-2022 23:26-0500 Mean blood pressure 99 mm[Hg] Kaylinn Dokken [facility] 01-20-2022 23:26-0500 Respiratory rate 21 /min Kaylinn Dokken [facility] 01-20-2022 23:26-0500 SaO2% (BldA) [Mass fraction] 97 % Kaylinn Dokken [facility] 01-20-2022 23:26-0500 Systolic blood pressure 112 mm[Hg] Kaylinn Dokken [facility] 01-20-2022 22:12-0500 gluc 94 mg/dL Kaylinn Dokken [facility] 01-20-2022 22:12-0500 gluc Kaylinn Dokken [facility] 01-20-2022 21:53-0500 Body temperature 98.24 [degF] Dominique Blackwood [facility] 01-20-2022 21:53-0500 Heart rate 108 /min Dominique Blackwood [facility] 01-20-2022 21:53-0500 Respiratory rate 18 /min cristelakoksana Blackwood [facility] Encounters Encounter Date Encounter Type Care Provider [...] Emergency department patient visit Dominique Blackwood Facility:[facility] Start: 01-20-2022 End: 01-21-2022 Emergency department patient visit Dominique Blackwood [facility] Start: 01-15-2022 End: 01-16-2022 ambulatory DR CE PEREIRA . Facility:[facility] Start: 11-14-2021 End: 11-15-[address] CE PEREIRA . Facility:[facility] Start: 11-07-2021 End: 12-01-[address] CE PEREIRA . Facility:[facility] Start: 08-17-2021 End: 08-18-[address] CE PEREIRA . Facility:[facility] Start: 05-25-2021 Encounter for genera l adult medical examination without abnormal findings DR CE PEREIRA . [facility] Start: 05-24-2021 End: 05-25-[address] CE PEREIRA . Facility:[facility] Start: 05-24-2021 End: 05-25-2021 Encounter for general adult medical examination without abnormal findings DR CE PEREIRA . Facility:[facility] Start: 08-14-2016 End: 08-15-2016 Ambulatory DEFAULT PHYSICIAN Facility:[facility] Procedures Date Procedure Procedure Detail Performing Clinician Start: 10-22-2018 Diagnostic endoscopy Kareem Blackwood Appendectomy Dominique Blackwood Cervical (qualifier value) K salas Blackwood Comment on above: Cervical neck fractu re - Ruptured ectopic pre gnancy (disorder) Dominique Blackwood Payers Date Payer Category Payer Unknown [id number] [id number] 1980 Unknown [id number] 2.16.84 [id number] 1980 Unknown [id number] 2.16.84 [id number] 1980 Unknown [id number] 2.16.84 [id number] 1980 Unknown [id number] 2.16.84 0.1.729686.3.579.2.593 1980 Unknown [id number] 2.16.84 [id number] 1980 Unknown [id number] 2.16.84 0.1.088479.3.579.2.593 1980 Unknown [id number] 2.16.84 [id number] 1980 Unknown [id number] 2.16.84 0.1.204688.3.579.2.593 1980 Unknown [id number] 2.16.84 0.1.831221.3.579.2.593 1980 Unknown [id number] 2.16.84 [id number] 1980 Unknown [id number] 2.16.84 [id number] 1959 Unknown [id number] 1959 Unknown [id number] Unknown Social History Date Type Detail Facility Start: 01-20-2022 Tobacco smoking status Ex-smoker (fi nding) [facility] Sex Assigned At Female [facility] Functional Status Date Assessment Result Facility 01-20-2022 Functional Status N/A [facility] Consultation note 01-30-2022 Note Date & Type [...] an 8-9/10. 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 Housework, activities aggravate [...] office in March. CC: Ce Pereira M.D. [facility] Discharge instructions 01-21-2022 Note Date & Type Note Facility 01-21-2022 Hospital Discharg e instructions Patient Education 01/21/2022 01:34:40 Nonspecific Chest Pain, Adult, [id number] Nonspecific Chest Pain Chest pain can be [...] Follow these instructions at home: Medicines Take wqik-lzb-pymefeq and prescription medicines only as told by [...] ?Eating a heart-healthy diet. A diet and food and nutrition professor (dietitian) can help you to learn healthy [...] 08/13/2008 Document Revised: 08/28/2018 Document Reviewed: 08/28/2018 [employer] Patient Education [employer]. Follow Up Care 01/20/2022 21:52:01 With:Ce Pereira Address: [address] [place], [place] [id number] Business (1) When:01/24/2022 Comments:Please follow-up with your primary care doctor in the next 2 to 3 days for further evaluation management. Please return to the ED for any new or worsening symptoms. [facility] Evaluation + Plan note 01-20-2022 Note Date [...] PT & PTT Rapid COVID Antigen ([facility]) Saline Lock Insert Troponin 0 Hr. Troponin 3 Hr. Troponin 6 Hr. XR Chest Single View [facility] Clinical Note 11-14-2021 Note Date & Type Note Facility 11-14-2021 Note PROCEDURE: XR SHOULD ER LT 2V or > COMPARISON: None. HISTORY: Neck pain FINDINGS: BONES:No fracture, acute abnormality, or significant arthropathy. SOFT TISSUES:Negative. No visible soft tissue swelling. EFFUSION:None visible. OTHER: Negative. IMPRESSION: No acute disease. Electronically authenticated by: JUSTICE ANDRADE Date: 2021-11-14 10:44 [facility] course Narrative Note Date & Type Note Facility Hospital course Narrative No data available for this section [facility] Progress note Note Date & Type Note Facility Progress note No data available for this section [facility] Summary Purpose Family History No Family History Records FoundNo Family History Records FoundNo Family History Records Found Advance Directives No Advanced Directives Records FoundNo Advanced Directives Records FoundNo Advanced Directives Records Found Additional Source Comments INFORMATION SOURCE (unrecogn ized section and content) DATE CREATED AUTHOR 09/04/2017 [facility] DATE CREATED AUTHOR AUTHOR'S ORGANIZ ATION 01/29/2022 [facility] DATE CREATED AUTHOR AUTHOR'S ORGANIZ ATION 05/15/2022 [facility] Patient Care team informatio n (unrecognized section and content) Personnel Name: Ce Pereira MD Address: Address: [address] [place] [address] FOR RECORDS PERTAINING TO PATIENTS WHO ARE [...] BE BASED ON THE PRIMARY CLINICAL RECORDS. [facility]. provides no warranty or guarantee of the accuracy or completeness of information in this document.
--- NOTE | 2023-05-27 08:00 | CA_ITS ---
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: : 1980 Requested By: CE DELUCA Order Number: [id number] Reading MD: DENNISE MARRUFO Interpretive Statements Predominant rhythm is sinus with average rate of 97 bpm Tachycardia (33% burden) - max rate of 151 bpm (sinus tachycardia) - longest episode of 2h 3min 32sec with rates between 113-151 bpm Bradycardia - none Ventricular ectopy - none Patient triggered events: 9 - associated symptoms of lightheadedness, palpitations - associated with rates of 110,114, 107, 128 and the remainder NSR Impression: Predominant rhythm is sinus with average rate of 97 bpm Fastest rate of 151 bpm (sinus tachycardia) and slowest reate of 72 bpm 33% tachycardia burden No ventricular ectopy No atrial fibrillation No pauses or blocks Electronically Signed On 06-07-2023 6:55:48 EDT by DENNISE MARRUFO
== END 2023-05-27 07:13 | disposition home or self-care (01) ==
LOC: MAMMO 07:13
PROVIDERS: PCP Family Medicine; Visit Provider Family Medicine
DX: R55 Syncope and collapse (principal); Z12.31 Encounter for screening mammogram for malignant neoplasm of breast; Z80.3 Family history of malignant neoplasm of breast; Z80.8 Family history of malignant neoplasm of other organs or systems; Z80.42 Family history of malignant neoplasm of prostate
CPT/HCPCS: 77063; 77067; 93246

== ENCOUNTER 2023-07-30 08:00 | Outpatient (OUT) | payer SELFPAY ==
--- NOTE | 2023-07-30 | ECG_ITS ---
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
--- OUTSIDE RECORDS SUMMARY | 2023-07-30 08:21 | XMS_ITS | CCD ---
Author Organization [facility] Care Team Providers Care Shear Operator Name Role Phone PHYSICIAN, DEFAULT Unavailable Unavailable PHYSICIAN, DEFAULT Unavailable Unavailable SELF, REFERRED Unavailable Unavailable Ce Deluca Primary Care Physician Dominique Blackwood Attending Unavailable HARDEN ., DR MONTANA Chiang Admitting Unavailable HARDEN ., DR MONTANA Chiang Consulting Unavailable HOY ., DR ENCINAS Primary Care Unavailable HARDEN ., DR MONTANA Chiang Attending Unavailable HARDEN ., DR MONTANA Chiang Admitting Unavailable HRADEN ., DR MONTANA Chiang Attending Unavailable HOY ., DR ENCINAS Primary Care Unavailable DONOVAN RUCKER Unavailable HOY ., DR ENCINAS Attending Unavailable HOY ., DR ENCINAS Admitting Unavailable HOY ., DR ENCINAS Primary Care Unavailable HOY ., DR ENCINAS Consulting Unavailable HOY ., DR ENCINAS Attending Unavailable HOY ., DR ENCINAS Admnatalie Unavailable HOY ., DR ENCINAS Primary Care Unavailable HOY ., DR ENCINAS Consulting Unavailable HOY ., DR ENCINAS Consulting Unavailable HOY ., DR ENCINAS Admnatalie [...] ENCINAS Admnatalie Unavailable HOY ., DR ENCINAS Consulting Unavailable HOY ., DR ENCINAS Admnatalie Unavailable HOY ., DR ENCINAS Attending Unavailable HOY ., DR ENCINAS Primary Care Unavailable HOY ., DR ENCINAS Consulting Unavailable HOY ., DR ENCINAS Consulting Unavailable HOY ., DR ENCINAS Admitting Unavailable HOY ., DR ENCINAS Attending Unavailable HOY ., DR ENCINAS Primary Care Unavailable [place], DR JUSTICE Romeo Consulting Unavailable HOY ., DR ENCINAS Admitting Unavailable HOY ., DR ENCINAS Primary Care Unavailable HOY ., DR ENCINAS Attending Unavailable Allergies Allergy Classification Reported Allergen(s) Allergy Type Date of Onset Reaction(s) Facility (1 source) penicillin Drug Allergy 06-14-2015 [facility] Repository (4 sources) Penicillins; Translations: [penicillins] Drug allergy 09-20-2012 [facility] Medications Current Medications Medication Drug Class(es) Dates [...] Value Interpretation Reference Range [facility] SARS-CoV-2 (COVID-19) RNA GALDINO+probe Ql (Unsp spec) Not detected Normal NOT DETECTED [facility] Comment on above: Result Comment: This test is not yet approved or cleared by the [place] FDA. When there are no FDA-approved or cleared tests available, and other criteria are met, FDA can make tests available under an emergency access mechanism called an Emergency Use Authorization (EUA). The EUA for this test is supported by the Lamp Assembler of Health and Human Service's (HHS's) declaration [...] consistent with SARS-CoV-2. Performed By: #### C VDTB #### [facility] [address] [place] [address] Dr. Siomara Mac INFLUENZA A AND B [facility] 03-06 [facility] SEE BELOW Normal [facility] Comment on above: Result Comment: Nega tive for Flu A protein angiten. Infection due to Flu A cannot be ruled out. Flu A angiten in the sample may be below the detection limit of the test. Performed By: #### I NFLUAB #### [facility] [address] [place] [address] Dr. [facility] Normal [facility] Comment on above: Result Comment: Nega tive for Flu B protein antigen. Infection due to Flu B cannot be ruled out. Flu B antigen in the sample may be below the detection limit of the test. Performed By: #### I NFLUAB #### [facility] [address] [place] [address] Dr. Siomara Mac INFLUENZA A AG Negative Normal NEGATIVE SEE COMMENT [facility] Comment on above: Performed By: #### I NFLUAB #### [facility] [address] [place] [address] Dr. Siomara Mac INFLUENZA B AG Negative Normal NEGATIVE SEE COMMENT [facility] Comment on above: Performed By: #### I NFLUAB #### [facility] [address] [address] [address] Siomara Mac INTERNAL CONTROLS Within Normal Limits Normal Wi thin Normal Limits [facility] Comment on above: Performed By: #### I NFLUAB #### [facility] [address] [place], [place] [address] Dr. Siomara Mac MRI CSPINE WO CONon [...] JUSTICE ANDRADE Date: 2022-01-25 08:53 Normal [facility] Coding Summary.on 01-24-2022 Coding Summary. [id number] h0bWw+PGhlYWQ+TT6XSKY [id number] TPSNLSOFNJ7TFB9nfPP1Y UfzX3UrxuTz VtusrBQpWY34JEv8NKC7y FkpSHepuY2jdZEdD7g1Dj RaZN84gA45FPykKXSsXxO 3LjZpbjsgbWFy Y8bjZnJbqRNbZil+PHRhY mxlIHdpZHRoPScxMDAlJy VvpEdxUF0oWj5mACOoGHD vbGxhcHNlOiBj l5xfOCVeANkjQF3juVacN 3FvbBE9PQRwn5b6Gq78cB I+LRVcJMI7aTnpZCgpq42 7CkEbf7mmSVF1 aFZpHOggYVA6T76qy6K6N FDxUVJeZHX4kLN8wA8hdP flfdasD6XkbBKzPuU8ZSF 0tJXhgW3rkXgi hxotdZ6hMjs+P26JVO6LY VKXLI7GMcv5V8JkDsxddE I+NJ21INDkUW88bOMxxNZ rj7swlYz2WjQk TLIiREQ4rFakGZsvf9KdB RWtX00jzBYji3Z6SBGdmZ ltmTKlHiOpnUH7cF3wZJq bzhawb1obsjjf Hearg7svjh56eM88W22nE SndLTMjEHI4SXWeZBWriA icyt1ybT5wYa6+PNodh3z ct0tovVj1FjKm HVIsgfZqkRwwGGL6c2ZbQ a01H3TeeGdvf9IjLev9zg 30cHIra6N0mNS6AGzaHTC jwU1nMTidDkQ4 VFUsMdHhdJ79nNHsPOydN n7kkVrfyUwiLA5lIVGsch pjEESlyU6cNJZdeTKmnYa kLQ5yAMIrojli j737LpDjVOT5EDRmyMFrQ 5IfvK7cStQbQSBtZLMyS5 TyjEUyMAhmW915UZhxDsQ 5GNLutlXpH2Xo BBSryQgyAlP9c6I1Fn0Py 3MlpfxuNDX4SUerOMFqOs O1VgLyNmC9R4SeSsc3WNC vqOmnDD1iL9Hq KNCxqfwaicgflEA0LSBeH TRnfI77hJCmRKedWw4uh9 U1n017CRXzUJHavN35Bh4 udDogMTBwdCBU gI6wlppqp8tnfqjrKzNaY TFkHUq5KFl2EBIrdTvkBq TyXEZ3GkK2IWD0kOWyoU2 jxJurcvjtrK0q Oyc+A28udP5cXLL5HGT1b jttUVYbgeKuWU88TN25T0 RyPjwvdGFibGU+PGRpdiB ddPzvCI0jRiSi q2bke6AfADnjV9JtHVKfX DjxEbx1MCGsEZV1nTT9qP 9kPKXzACdwn1U3zIW1I1V efbDzqp1gh0ck CPSqEMncR55raBCix7O6D WVukQA8RKGplFleXdKltI 93Oyc+TQRhsZrlh7BrCmw zy8mzs6knuIr6 QaZeYJMxenSpzGxlJMR5f 6JfNh48M49qFMayBSWhYQ YkGJXaUSLvjAkvmr0vaB1 wIi8+PGNvbCB3 lJY4lD5zTIKeBmZ0LEpgV 368OwEnvTPwPndif0xvx4 zlfQb1NlVrSINtzhXrtCi sWGF8z5HeVo66 S58eCVxaVUIcXGAuIUCzW JFifXqvkr7gkG2kAy9+PC 6mp9ozlx06sM25xVY+PHR aIRD8kZmuYUva WFSmnG7kAWdpPdR1ENNfP tKmzN07gRZlVEqiAt5heS vfyWgqAC5xQCCyahazt87 6ShQwy9crHGGu fFUhDYjlVKX3H57eq0S5U OYyTCPkQFO8mSX2iQ4gyP lnbjogbGVmdDsgdmVydGl mDYbqOKhnA958 IHRvcDsnPlBhdGllbnQgT sLnBUx1X5XbKha2DDIqdQ xdAN8joAYrUTowTl1tpLl ajCluBI8fGFMz nsfec931KqVmx2ydRIJyy EEnBWmuSZJ1P64au9L5CQ YlXBYhHRZ4qYD7eK8qoAu nbjogbGVmdDsg qjRgdMsbRQwxBIfiK528N HRvcDsnPkJpcnRoIERhdG W6GU39BP78wDXsf3U3hGM 8O3FaZTXtncou bgsjuPA3PONfAVDbjV86O g1krZdlOx1aAJHbQRV6FL ZwgWHxO8MuiN6xFkTlRVH fWGZnX8ClrOTq WUvgW307DAjzNrC9GGRnm dVkM9BuOZMfkDqvOcX2t9 J6Lz5FP2M3IB91NH31zXX zw3Y7lMZ3P5Cw KWAzewlrdnspmMQ6OCWmA DPckJ45Xs8vkJlpTa7nOO HpSYD7OQKcyDVbR0RcoM8 yOiAjMDAwMDAw V0RtuWGoWDsfC591AZktL oU8KSLqulRqF1SiVSPysX hxBsC0p0G3Ss4BDDz9YJ6 1FF04uWCkp9T8 vFQ7C1LqXKHetqfqlixzn FJ8FGPmUDVdgD58Ux6cyJ tuBz2bOZTrFKB3VDAdiPO aZ1CqkK3lNmIh PYCnYAYpB9MqeHHbYGkiA 331MPmgGjU2OTGozkOiM2 FjTXPdhRkyVvK9a3X8Nz9 MYPHyTS43PCB4 iNG0CE56JV54X5MnZecbs GFibGU+PHRhYmxlIHdpZH RoPScxMDAlJyBzdHlsZT0 kMe9jOJEzXSTr yQkibNCmSiNdp2goOMMcT HvkHR4ttOyjO0MorTN5BW Yoc4t6Eq01A78zF6VsmXG +CWPqoUQ0zZO7 eL0kRdZkOpI8INrwT608D aSzeJBaMeepr5jrb7ffpJ y3AsV1LDSdetSriEegGOS 0x0PuKr98J27d IHdpZHRoPSIxNSUiIHZhb Ktsxj1xvX4wMm5+PGNvbC W9uWN6fT8rFfHvSbY0KGp zT434QzNxcCFb Ytdhs9ebe7xlkMm8RyHnP GKeybDgpSxwWWK1a5OxGn 51Z1XqsCqyg1FdBgx0gm5 2sRGee2Y6xHZ0 U4NgVHDfkrvxbHEcpRkcU N6eXXAszvdyIIOnoZ5qWJ LzT1t0WbTnGzE7SGbjG3Z hdiA2GZAgxFSv NIyjPJP9I55eg1Z1NDQrG QUyAVB3eBP4zL4eyXgjxz ogbGVmdDsgdmVydGljYWw vXTtgS069NQOc fBwjPIJobY6xYNIdxLHbz PcrPU2bIHQujcvxRjlNPw OFDpzyC2EKDASQLF75WX5 3nAFdg7I7kWN5 A4BwABJarxtfboiehNC1F GWuJBRvoE14dMUvKWzeWc 2ky8C8f071FUWoUOCptR7 2Tf6qbKdwOUYu wNWAiO1bymada2kkhtsjJ mGqPXMqVMt3GFr6KDPriH heYgEcMPW8BaK7KWO1hAG hoO6fcTchqdyh qW0wLro+DHFbQSliLQd6X TwvdGQ+OPVdTGB5cIzvWX odRVGftR7iKGUhL9w8EiE zFgP9BXkqU1Fb PAVqqhkiNf67tE2bXfUiD kO3RTnjP0JjfzE4TXRgeY DyBOxfYAC6E00ww7U6BOT cWYMnWES5dZG9 mU0xgCkmkrtlwARzaMvfg eSycYrpZLzoVIqlA971ZE RvcDsnPjQxIFllYXJzPC9 8BW85kOTfj6G8 aBT7L7QpWVZiocqyqraqe XW1YWVyEWAgzM78qXYoAP rtDl6fh9N9x789OGVxHZK mlZ95Rp5qfStp OOClfTMZoV1kpwzaq2ejk aayNjThXHYzFBg4OXr7FW CckCepPmUhFRG7FiT4FZT 1vRCnjL6vkRxj czdcgZ4fYzq+RmVtYWxlP E20JH95tUDcr5A9yHY7P0 MnPZOmuzyxtvzkzBC1DKG vTXAtoF37aZRt UWiwVq6bk6Y9o100FFTkH FStzY84Xi5sxPniULDpoY OAoL7fyirpj7cdzildZcE vUCCeWWf1TWu8 LHNeaDcrWzXmECW8HfL6O SX2tINfgI2cpBcoagvogG 9wOyc+SF1xkkszfsA8AU2 7ZN36B7HbOuxf dGFibGU+PHRhYmxlIHdpZ HRoPScxMDAlJyBzdHlsZT 1iNc5vHKFhIKQtwKheeGC jVjAul1csVAVo SGvgHC2lcZcgV6NzqUA1D VCta3y4Mr09K58rG5ZszW A+SDEkbCR9fEM8yI9pRgT wLyA9VEtuX934 FdPuaGJhBpsle5ymq7evk Zv3BfRpTVVswoBdrLbaWT K7a6VsTo10B65pEMdbOGO oPSIyMCUiIHZh eTjhtb1sdB0rKa0+PGNvb CJ6rAG3lE6hFsAyYqL5EA hvR543GzZlwZHqDrusU55 sU4OvfJW+PHRy Ahg8WOTdpEwaAH1dfMGxV ZwfJr0hUCK9MzIdFqJsVJ cxA9CfRBBazhdqfpzbzYF 5NUDhPLJhcJ44 Fy7rtMntMp0hJHFfLXJ4Z KFedTAaG1NqqK5pWaEpHY ZkSWWpV6NyuKIuTPbqT74 3ZPazMeI7FZHl pfTzL3LlRPAygGrbEgY2k 6B3Hx3BdUtkmASnMX3rVs CeJGp4P9GrUwo9EYUqqOe eLH7ksHLlECey Aa1sdLrvyUckFX7iEGYxw inoc546NfMyv6ieBMMzsL TaCCnzNIX1S46mp7S1NQQ qKJDsOYB9kNH5 pZ3qlXqjflzvaINduVilg aIfbEjqPYaxVMynO310XS RsiFnzFmWYBdo5X3DeNwo 4SSWkvNadSW5t cKPlEUmpNg2clImheNruX Z8bRNFpxvzay675ZxWkp6 cpXXLzxCAoEWqwNOG1G88 rr2Y3SKArSQLk NKY8mHN2mI6yxStyfizbd GVmdDsgdmVydGljYWwtYW npR486RQLptXihCx1YIxs 4E5HfYtn4DRGk pGfnIW6kyJCpXEiqZn3yh IodgIgnXK4vGQGcqaruf2 36MdGvy8yqMVAmvQWbCPf tPQB8L58yk5V8 MBGpQSYgUXG6iVH4pK1fq GlnbjogbGVmdDsgdmVydG olGDznUQveD707CMNrkBh nPlBheWVyOjwv dGQ+KS25qj20T9FsMvxgD rt6QNBgBJJ6iBG2mA9iKT OhNHkde9O8aBA2V7WmoaV boh5it3qhXKNp ZTog (more content not included)... Normal [facility] Auto Diffon 01-21-2022 Basophils/100 WBC (Bld) 0.8 % Normal 0.0-2.0 [facility] Comment on above: Order Comment: Order Added by Discern Expert. Performed By: #### 2 [id number], [id number] #### [facility] [address] [place] [address] Basophils/Leukocytes Auto (Bld) [Pure # fraction] 0.1 E9/L Normal 0.0-0.2 [facility] Comment on above: Order Comment: Order Added by Discern Expert. Performed By: #### 2 [id number], [id number] #### [facility] [address] [place] [address] Eosinophils/100 WBC (Bld) 2.2 % Normal 0.0-8.0 [facility] Comment on above: Order Comment: Order Added by Heather Expert. Performed By: #### 2 [id number], [id number] #### [facility] [address] [place] [address] Eosinophils/Leukocytes Auto (Bld) [Pure # fraction] 0.2 E9/L Normal 0.0-0.5 [facility] Comment on above: Order Comment: Order Added by Discern Expert. Performed By: #### 2 [id number], [id number] #### [facility] [address] [place] [address] Lymphocytes/100 WBC (Bld) 29.8 % Normal 14.0-50.0 [facility] Comment on above: Order Comment: Order Added by Discern Expert. Performed By: #### 2 [id number], [id number] #### [facility] [address] [place] [address] Lymphocytes/Leukocytes Auto (Bld) [Pure # fraction] 2.9 E9/L Normal 1.0-4.0 [facility] Comment on above: Order Comment: Order Added by Heather Expert. Performed By: #### 2 [id number], [id number] #### [facility] [address] [place] [address] Monocytes/100 WBC (Bld) 6.8 % Normal 4.0-14.0 [facility] Comment on above: Order Comment: Order Added by Discern Expert. Performed By: #### 2 [id number], [id number] #### [facility] [address] [place] [address] Monocytes/Leukocytes Auto (Bld) [Pure # fraction] 0.7 E9/L Normal 0.2-1.0 [facility] Comment on above: Order Comment: Order Added by Discern Expert. Performed By: #### 2 [id number], [id number] #### [facility] [address] [place] [address] Neutrophils/100 WBC (Bld) 60.4 % Normal 36.0-75.0 [facility] Comment on above: Order Comment: Order Added by Discern Expert. Performed By: #### 2 [id number], [id number] #### [facility] [address] [place] [address] Neutrophils/Leukocytes Auto (Bld) [Pure # fraction] 5.8 E9/L Normal 2.0-7.5 [facility] Comment on above: Order Comment: Order Added by Discern Expert. Performed By: #### 2 [id number], [id number] #### [facility] [address] [place] [address] B hCG Qualon 01-21-2022 Beta hCG Ql Negative Normal [facility] Comment on above: Performed By: #### 2 [id number] #### [facility] [address] [place] [address] BMPon 01-21-2022 Creatinine [Mass/Vol] 0.9 mg/dL Normal 0.5-1.3 [facility] Comment on above: Performed By: #### 2 [id number], [id number] #### [facility] [address] [place] [address] Urea nitrogen [Mass/Vol] 13 mg/dL Normal 5-21 [facility] Comment on above: Performed By: #### 2 [id number], [id number] #### [facility] [address] [place] [address] Urea nitrogen/Creatinine [Mass ratio] 14 No Units Normal 10-20 [facility] Comment on above: Performed By: #### 2 [id number], [id number] #### [facility] [address] [place] [facility] [place] [address] Anion gap [Moles/Vol] 13 mmol/L Normal 6-16 [facility] Comment on above: Performed By: #### 2 [id number], [id number] #### [facility] [address] [place] [address] Calcium [Mass/Vol] 8.9 mg/dL Normal 8.9-11.1 [facility] Comment on above: Performed By: #### 2 [id number], [id number] #### [facility] [address] [place] [address] Chloride [Moles/Vol] 104 mmol/L Normal 101-111 [facility] Comment on above: Performed By: #### 2 [id number], [id number] #### [facility] [address] [place] [address] CO2 [Moles/Vol] 23 mmol/L Normal 21-31 [facility] Comment on above: Performed By: #### 2 [id number], [id number] #### [facility] [address] [place] [address] Glucose [Mass/Vol] 105 mg/dL Normal 55-199 [facility] Comment on above: Result Comment: If t his glucose result represents a fasting glucose, interpretation should refer to the following reference range: 55-99 mg/dL Performed By: #### 2 [id number], [id number] #### [facility] [address] [place] [address] Potassium [Moles/Vol] 3.4 mmol/L Low 3.5-5.3 [facility] Comment on above: Performed By: #### 2 [id number], [id number] #### [facility] [address] [place] [address] Sodium [Moles/Vol] 137 mmol/L Normal 135-145 [facility] Comment on above: Performed By: #### 2 [id number], [id number] #### [facility] [address] [place] [address] CBC w/ Auto Diffon Erythrocyte distribution width (RBC) [Ratio] 12.3 % Normal 10.9-14.2 [facility] Comment on above: Performed By: #### 2 [id number], [id number] #### [facility] [address] [place] [address] Hematocrit (Bld) [Volume fraction] 37.2 % Normal 34.0-46.0 [facility] Comment on above: Performed By: #### 2 [id number], [id number] #### [facility] [address] [place] [address] Hemoglobin (Bld) [Mass/Vol] 13.2 g/dL Normal 12.0-16.0 [facility] Comment on above: Performed By: #### 2 [id number], [id number] #### [facility] [address] [place] [address] MCH (RBC) [Entitic mass] 31.1 pg Normal 27.0-34.0 [facility] Comment on above: Performed By: #### 2 [id number], [id number] #### [facility] [address] [place] [address] MCHC (RBC) [Mass/Vol] 35.4 g/dL Normal 31.4-36.0 [facility] Comment on above: Performed By: #### 2 [id number], [id number] #### [facility] [address] [place] [address] MCV (RBC) [Entitic vol] 87.9 fL Normal 80.0-100.0 [facility] Comment on above: Performed By: #### 2 [id number], [id number] #### [facility] [address] [place] [address] Platelet mean volume (Bld) [Entitic vol] 7.7 fL Normal 6.4-10.8 [facility] Comment on above: Performed By: #### 2 [id number], [id number] #### [facility] [address] [place] [address] Platelets (Bld) [#/Vol] 232.0 E9/L Normal 150.0-500.0 [facility] Comment on above: Performed By: #### 2 [id number], [id number] #### [facility] [address] [place] [address] RBC (Bld) [#/Vol] 4.2 E12/L Low 4.3-5.9 [facility] Comment on above: Performed By: #### 2 [id number], [id number] #### [facility] [address] [place] [address] WBC corrected for nucl RBC Auto (Bld) [#/Vol] 9.6 E9/L Normal 4.0-11.0 [facility] Comment on above: Performed By: #### 2 [id number], [id number] #### [facility] [address] [place] [address] CHEMISTRYOrdered By: SYSTEM SYSTEM on 01-21-2022 Troponin I.cardiac [Mass/Vol] 3.80 pg/mL Low 10.10 - 27.10 pg/mL [facility] Remisol D-Dimeron 01-21-2022 Fibrin D-dimer FEU (PPP) [Mass/Vol] 294 [id number] Normal 215-500 [facility] Comment on above: Result Comment: [...] infections Liver cirrhosis Performed By: #### 2 [id number], [id number] #### [facility] [address] [place] [address] Discharge Instructionson Discharge Instructions [id number]# 1.00CD:127 Normal [facility] ED Clinical Summaryon 2021 ED Clinical Summary [address] [address] ED Clinical Summary Person Information Name: AMISHA LAKHANI [facility] Age: 41 Years : 1980 Sex: Female Language: Angolan PCP: Ce Deluca MD Marital Status: Single Visit Id: Visit [...] 01/21/2022 01:34:40 01/21/2022 01:34:40 01/21/2022 01:34:40 ADDRESS: [address] [place] [address] [id number] PHYS DOC NOTES: MEDICAL INFORMATION: Prescriptions Given: PATIENT EDUCATION INFORMATION: Instructions: Nonspecific Chest Pain, Adult, Hzst-na-Qqis Follow up: With: Address: When: Ce Deluca [facility], [place] [address] Business (1) In 3 days 01/24/2022 Comments: Please follow-up with your primary care doctor in the next 2 to 3 days for further evaluation management. Please return to the ED for any new or worsening symptoms. DIAGNOSIS: Chest pain Normal [facility] ED Note-Physicianon 11-13-20 22 ED Note-Physician Basic Information Time Seen: [...] intravenous soluti (more content not included)... Normal [facility] Comment on above: Result Comment: Elec [...] these instructions at home: Medicines ? Take kzjd-ogi-jlsjjhy and prescription medicines only as told by [...] Eating a heart-healthy diet. A diet and nutrition partner (dietitian) can help you to learn healthy [...] Reviewed: 08/28/2018 Elsevier Patient Education ? 2020 [employer] Normal [facility] ED Patient Summaryon 022 ED Patient Summary [place] [id number] Patient Discharge Instructions Person Information Name: AMISHA LAKHANI Age: 41 Years Arrival Date: 01/20/2022 21:51:07 Discharge Diagnosis: Chest pain Primary Care Physician: Ce Deluca MD Provider Information Primary Provider: Dominique Blackwood DO Advanced Hydrator:None The exam and treatment you received in the Emergency Department were for an urgent problem and are not intended as complete care. It is important that you follow up with a doctor, nurse practitioner, or physician?s home based assistant for ongoing care. If your symptoms become worse or you do not improve as expected and you are unable to reach your usual health care provider, you should return to the Emergency Department. We are available 24 hours a day. AMISHA LAKHANI has been given the following list of patient education materials, prescriptions and follow-up instructions: Follow-up Instructions: With: Address: When: Ce Deluca [address] [place] [address], [facility] [address] [place] [phone] Business (1) In 3 days 01/24/2022 Comments: [...] Patient Education Materials: Nonspecific Chest Pain, Adult, Kpkf-em-Rrmg A MESSAGE TO ALL PATIENTS REGARDING OPIOIDS PRESCRIPTION OPIOIDS: WHAT YOU NEED TO KNOW Prescription opioids can be used to help relieve moavpqmd-ln-pleirv pain and are often prescribed following a [...] ? If y (more content not included)... [facility] EMS Documentationon 01-22-20 22 EMS Documentation [id number]# 1.00CD:127 [facility] Hep Func Panelon 01-21-2022 Bilirubin.indirect [Mass or moles/Vol] [facility] Abnormal 0.1-0.9 [facility] Comment on above: Result Comment: Resu lt verified by Discern Rule. Performed result UT (Unable to Calculate) was sent as an Alpha code due the inability to calculate a valid numeric value. Performed By: #### 2 [id number] #### [facility] [address] [place] [address] Albumin [Mass/Vol] 3.7 g/dL Normal 3.3-5.0 [facility] Comment on above: Performed By: #### 2 [id number] #### [facility] [address] [place] [address] Albumin/Globulin (S) [Mass conc ratio] 1.1 Normal 1.1-2.2 [facility] Comment on above: Performed By: #### 2 [id number] #### [facility] [address] [place] [address] ALP [Catalytic activity/Vol] 60 Int._Unit/L Normal 21-98 [facility] Comment on above: Performed By: #### 2 [id number] #### [facility] [address] [place] [address] ALT No additional P-5'-P [Catalytic activity/Vol] 17 Int._Unit/L Normal 6-46 [facility] Comment on above: Performed By: #### 2 [id number] #### [facility] [address] [place] [address] AST [Catalytic activity/Vol] 18 Int._Unit/L Normal 5-43 [facility] Comment on above: Performed By: #### 2 [id number] #### [facility] [address] [place] [address] Bilirubin [Mass/Vol] 0.4 mg/dL Normal 0.0-1.1 [facility] Comment on above: Performed By: #### 2 [id number] #### [facility] [address] [place] [address] Bilirubin.direct [Mass/Vol] mg/dL Normal 0.1-0.4 [facility] Comment on above: Performed By: #### 2 [id number] #### [facility] [address] [place] [address] Globulin (S) [Mass/Vol] 3.3 g/dL Normal 1.4-4.0 [facility] Comment on above: Performed By: #### 2 [id number] #### [facility] [address] [place] [address] Protein [Mass/Vol] 7.0 g/dL Normal 6.0-7.8 [facility] Comment on above: Performed By: #### 2 [id number] #### [facility] [address] [place] [address] Influenza A&B Agon 2 Influenzae A Ag Negative Normal Negative [facility] Comment on above: Performed By: #### 2 [id number] #### [facility] [address] [place] [address] Influenzae B Ag Negative Normal Negative [facility] Comment on above: Result Comment: Test sensitivity and specificity vary for age group, specimen type, antigen types, and prevalence of disease. Test results must be evaluated in conjunction with other clinical data available to the physician. Individuals who received nasally administered Influenza A vaccine may have positive test results up to 3 days after vaccination. Performed By: #### 2 [id number] #### [facility] [address] [place] [address] Monitor Recordon 01-21-2022 Monitor Record [id number]# 1.00CD:[id number] Normal [facility] PT & PTTon 01-21-2022 aPTT Coag (PPP) [Time] 32.7 second(s) Normal 25.1-36.5 [facility] Comment on above: Result Comment: Para [...] the same coagulation reagent and instrumentation as [facility]. Currently there are no coagulation studies available worldwide for children to 14 days, and no normal ranges. Heparin therapeutic range (represented by Anti-Factor Xa activity of 0.2 - 0.4 U/mL) corresponds to PTT of 56.6 - 109.0 sec. Performed By: #### 2 [id number], [id number] #### [facility] [address] [place] [address] INR Coag (PPP) [Relative time] 1.1 {INR} Invalid Interpretation Code [facility] Comment on above: Result Comment: INR results are specifically intended to assess patients stabilized on long-term Anticoagulation therapy suggested INR?s ?Less Intensive Anticoagulation? 2.0 ? 3.0 Conventional Range 3.0 ? 4.5 Performed By: #### 2 [id number], [id number] #### [facility] [address] [place] [address] PT Coag (PPP) [Time] 11.8 second(s) Normal 9.4-12.5 [facility] Comment on above: Result Comment: 15 [...] the same coagulation reagent and instrumentation as [facility]. Currently there are no coagulation studies available worldwide for children to 14 days, and no normal ranges. Performed By: #### 2 [id number], [id number] #### [facility] [address] [place] [address] Rapid COVID Antigen ([facility])on 01-21-2022 Rapid COV Int NEG Ctl Pass Normal Fis [facility] Comment on above: Performed By: #### 2 [id number], [id number] #### [facility] [address] [place] [address] Rapid COV Int POS Ctl Pass Normal Fis [facility] Comment on above: Performed By: #### 2 [id number], [id number] #### [facility] [address] [place] [address] SARS-CoV+SARS-CoV-2 (COVID-19) Ag IA.rapid Ql (Resp) Not detected Normal Not Detected [facility] Comment on above: Result Comment: The Glance [employer]? System for Rapid Detection of SARS-CoV-2 is [...] or revoked sooner. Performed By: #### 2 [id number], [id number] #### [facility] [address] [place] [address] ADMITTED TO INTENSIVE CARE UNIT FOR CONDITION OF INTEREST:FIND:PT: NO Normal [facility] Comment on above: Performed By: #### 2 [id number], [id number] #### [facility] [address] [place] [address] EMPLOYED IN A HEALTHCARE SETTING:FIND:PT: NO Normal [facility] Comment on above: Performed By: #### 2 [id number], [id number] #### [facility] [address] [place] [address] FIRST TEST FOR CONDITION OF INTEREST:FIND:PT: YES Normal [facility] Comment on above: Performed By: #### 2 [id number], [id number] #### [facility] [address] [place] [address] HAS SYMPTOMS RELATED TO CONDITION OF INTEREST:FIND:PT: YES Normal [facility] Comment on above: Performed By: #### 2 [id number], [id number] #### [facility] [address] [place] [address] HOSPITALIZED FOR CONDITION OF INTEREST:FIND:PT: NO Normal [facility] Comment on above: Performed By: #### 2 [id number], [id number] #### [facility] [address] [place] [address] STATUS:FIND:PT: NO Normal [facility] Comment on above: Performed By: #### 2 [id number], [id number] #### [facility] [address] [place] [address] RESIDES IN A CONGREGATE CARE SETTING:FIND:PT: NO Normal [facility] Comment on above: Performed By: #### 2 [id number], [id number] #### [facility] [address] [place] [address] Troponin 0 Hr.on 01-21-2022 Troponin I.cardiac [Mass/Vol] 2.80 pg/mL Low 10.10-27.10 [facility] Comment on above: Result Comment: The 95% CI (Confidence Interval) PPV (Positive Predictive Value) for myocardial infarction in females is 38 pg/mL, in males 51 pg/mL. The results should be used in conjunction with clinical conditions of myocardial infarction. (Access High Sensitivity Troponin I Instructions For Use, [employer], October 2017) Performed By: #### 2 [id number] #### [facility] [address] [place] [address] Troponin 3 Hr.on 01-21-2022 Troponin I.cardiac [Mass/Vol] 3.80 pg/mL Low 10.10-27.10 [facility] Comment on above: Result Comment: The 95% CI (Confidence Interval) PPV (Positive Predictive Value) for myocardial infarction in females is 38 pg/mL, in males 51 pg/mL. The results should be used in conjunction with clinical conditions of myocardial infarction. (Access High Sensitivity Troponin I Instructions For Use, [employer], October 2017) Performed By: #### 1 [id number] #### [facility] [address] [place] [address] XR Chest Single Viewon 01-21 XR Chest [...] V. Transcribed by: KATI Technologist: IGLESIA Kan [facility] eGFRon 01-21-2022 GFR/1.73 sq M.predicted among blacks MDRD (S/P/Bld) [Vol rate/Area] mL/min/{1.73_m2} Normal >=59 [facility] Comment on above: Order Comment: Order added by Discern Expert. Result Comment: eGFR is race adjusted. AA=. Performed By: #### 2 [id number] #### [facility] [address] [place] [address] GFR/1.73 sq M.predicted among non-blacks MDRD (S/P/Bld) [Vol rate/Area] mL/min/{1.73_m2} Normal >=59 [facility] Comment on above: Order Comment: Order added by Discern Expert. 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 Kidney failure is indicated at less than 15 mL/min/1.73m2. Performed By: #### 2 [id number] #### [facility] [address] [place] [address] CHEMISTRYOrdered By: SYSTEM SYSTEM on 01-20-2022 Albumin [...] mg/dL Normal 0.0 - 1 .1 mg/dL [facility] Bilirubin.direct [Mass/Vol] mg/dL Normal 0.1 - [...] rate/Area] mL/min/1.73 m2 Normal >=59mL/min/1 .73 m2 [facility] Chem S GFR/1.73 sq M.predicted among non-blacks MDRD (S/P/Bld) [Vol rate/Area] mL/min/1.73 m2 Normal >=59mL/min/1 .73 m2 [facility] Chem S Globulin (S) [Mass/Vol] 3.3 g/dL Normal 1.4 - 4.0 gm/dL [facility] Glucose [Mass/Vol] 105 mg/dL Normal 55 - 199 mg/dL [facility] Potassium [Moles/Vol] 3.4 mmol/L Low 3.5 - 5.3 mmol/L [facility] Protein [Mass/Vol] 7.0 g/dL Normal 6.0 - 7.8 gm/dL [facility] Remisol Sodium [Moles/Vol] 137 mmol/L Normal 135 - 145 mmol/L [facility] Remisol Troponin I.cardiac [Mass/Vol] 2.80 pg/mL Low 10.10 - 27.10 pg/mL [facility] Remisol Urea nitrogen [Mass/Vol] 13 mg/dL Normal 5 - 21 mg/dL [facility] Remisol Urea nitrogen/Creatinine [Mass ratio] 14 mg/mg Normal 10 - 20 [facility] Remisol CHEMISTRYOrdered By: Lab ROP User on 01-20-2022 Glucose [Mass/Vol] 94 mg/dL Normal 55 - 99 mg/dL FT POC Subsection Comment on above: Result Comment: Jace winter RN/ POC Device SN [id number] Invalid Interpretation Code [facility] POC Subsection POC User ID [id number] Invalid Interpretation Code [facility] POC Subsection POC Username TIN SONG Invalid Interpretation Code [facility] POC Subsection COAGULATIONOrdered By: Kelli on Victor Hugo on 01-20-2022 aPTT Coag (PPP) [Time] 32.7 s Normal 25.1 - 36.5 second(s) [facility] Auto Coag Fibrin D-dimer FEU (PPP) [Mass/Vol] 294 ng/mL FEU Normal 215 - 500 ng/mL FEU [facility] Auto Coag INR Coag (PPP) [Relative time] 1.1 {INR} Invalid Interpretation Code [facility] Auto Coag PT Coag (PPP) [Time] 11.8 s Normal 9.4 - 1 2.5 second(s) [facility] Auto Coag Capillary Glucose POCon 01-09 Glucose [Mass/Vol] 94 mg/dL Normal 55-99 [facility] Comment on above: Result Comment: Jace winter RN/ Performed By: #### 2 [id number] #### [facility] [address] [place] [address] Consent for Treatmenton 01-09 Consent for Treatment [id number] Normal [facility] HEMATOLOGYOrdered By: SYSTEM SYSTEM on 01-20-2022 [...] Ag Negative (01/20/22 10:17 PM) Normal Negative [facility] Influenzae B Ag Negative (01/20/22 10:17 PM) Normal Negative [facility] Rapid COV Int NEG Ctl Pass (01/20/22 10:17 PM) Normal [facility] Rapid COV Int POS Ctl Pass (01/20/22 10:17 PM) Normal [facility] SARS-CoV+SARS-CoV-2 (COVID-19) Ag IA.rapid Ql (Resp) Not Detected (01/20/22 10:17 PM) Normal Not Detected [facility] SEROLOGYOrdered By: Elysia Gay on 01-20-2022 Beta hCG Ql Negative (01/20/22 10:10 PM) Normal [facility] XR CSPINE MIN 4 VIEWSon XR CSPINE MIN 4 VIEWS EXAMINATION: XR CSPINE MIN 4 VIEWS HISTORY: Cervical radiculopathy COMPARISON: 08/17/2021 FINDINGS: BONES: Anterior fusion C5-C6 with no mechanical failure. DISC SPACES: Interbody spacers C5-C6 PARASPINOUS: Negative. No paraspinous abnormality is seen. OTHER: Negative. IMPRESSION: Stable C5-C6 fusion Electronically authenticated by: JUSTICE ANDRADE Date: 2022-01-15 17:34 Normal [facility] XR CSPINE MIN 4 VIEWSon 08-09 [...] by: JUSTICE ANDRADE Date: 2021-08-18 07:29 Normal [facility] INSULINon 05-25-2021 Insulin 13.9 uIU/mL Normal 2.6-24.9 [facility] Comment on above: Performed By: #### I NSULIN #### [facility] [address] [place] [address] Dr. Siomara Mac CBC AUTO DIFFon 05-24-2021 BASO # 0.0 103/ul Normal 0.0-0.1 [facility] Comment on above: Performed By: #### C BC ####[facility] [address] [place], [place] [address]Dr. Siomara Bubba Basophils/100 WBC (Bld) 0.5 % Normal 0.2-2.0 [facility] Comment on above: Performed By: #### C BC ####[facility] [address] [place], [place] [address]Dr. Gillbello Bubba EO # 0.2 103/ul Normal 0.0-0.7 [facility] Comment on above: Performed By: #### C BC ####[facility] [address] [place], [place] [address]Dr. Siomara Mac Eosinophils/100 WBC (Bld) 3.7 % Normal 0.9-7.0 [facility] Comment on above: Performed By: #### C BC ####[facility] [address] [place], [place] [address]Dr. Gillbello Bubba Erythrocyte distribution width (RBC) [Ratio] 11.6 % Normal 11.0-15.0 [facility] Comment on above: Performed By: #### C BC ####[facility] [address] [place], [place] [address]Dr. Siomara Mac Hematocrit (Bld) [Volume fraction] 41.7 % Normal 36.0-48.0 [facility] Comment on above: Performed By: #### C BC ####[facility] [address] [place], [place] [address]Dr. Gillbello Bubba Hemoglobin (Bld) [Mass/Vol] 14.2 g/dL Normal 12.0-16.0 [facility] Comment on above: Performed By: #### C BC ####[facility] [address] [place], [place] [address]Dr. Siomara Mac IG # 0.03 10e3/ul Normal 0.00-0.03 [facility] Comment on above: Performed By: #### C BC ####[facility] [address] [place], [place] [address]Dr. Siomara Mac IG % 0.5 % Normal 0.0-0.5 [facility] Comment on above: Performed By: #### C BC ####[facility] [address] [place] [address]DrTin Mac LYMPH # 2.1 103/ul Normal 1.2-3.8 [facility] Comment on above: Performed By: #### C BC ####[facility] [address] [place] [address]DrTin Mac Lymphocytes/100 WBC (Bld) 33.5 % Normal 20.5-60.0 [facility] Comment on above: Performed By: #### C BC ####[facility] [address] [place], [place] [address]DrTin Mac MANUAL DIFF REQ NO Normal [facility] Comment on above: Performed By: #### C BC ####[facility] [address] [place] [address]DrTin Mac MCH (RBC) [Entitic mass] 31.2 pg Normal 26.7-34.0 [facility] Comment on above: Performed By: #### C BC ####[facility] [address] [place], [place] [address]DrTin Mac MCHC (RBC) [Mass/Vol] 34.1 g/dL Normal 29.9-35.2 [facility] Comment on above: Performed By: #### C BC ####[facility] [address] [place], [place] [address]DrTin Mac MCV (RBC) [Entitic vol] 91.6 fL Normal 81.0-99.0 [facility] Comment on above: Performed By: #### C BC ####[facility] [address] [place], [place] [address]DrTin Mac MONO # 0.3 103/ul Normal 0.3-0.8 [facility] Comment on above: Performed By: #### C BC ####[facility] [address] [place], [place] [address]DrTin Mac Monocytes/100 WBC (Bld) 5.4 % Normal 1.7-12.0 [facility] Comment on above: Performed By: #### C BC ####[facility] [address] [place] [address]Dr. Siomara Mac NEUT # 3.6 103/ul Normal 1.4-6.5 [facility] Comment on above: Performed By: #### C BC ####[facility] [address] [place] [address]Dr. Siomara Mac Neutrophils/100 WBC (Bld) 56.4 % Normal 43.0-75.0 [facility] Comment on above: Performed By: #### C BC ####[facility] [address] [place], [place] [address]Dr. Siomara Mac Platelet mean volume (Bld) [Entitic vol] 9.4 fL Critically low 9.5-13.5 [facility] Comment on above: Performed By: #### C BC ####[facility] [address] [place], [place] [address]Dr. Siomara Mac PLT 292 103/ul Normal 150-450 [facility] Comment on above: Performed By: #### C BC ####[facility] [address] [place], [place] [address]Dr. Siomara Mac RBC 4.55 106/ul Normal 4.20-5.40 [facility] Comment on above: Performed By: #### C BC ####[facility] [address] [place], [place] [address]Dr. Siomara Mac WBC 6.3 103/ul Normal 4.0-11.0 [facility] Comment on above: Performed By: #### C BC ####[facility] [address] [place], [place] [address]Dr. Siomara Mac FREE THYROXINE INDEX T7on FTI 2.41 Normal [facility] Comment on above: Performed By: #### L IPID, T7, TSH, CMP ####[facility] [address] [place], [place] [address]Dr. Siomara Mac T3U 37.0 % Normal 23.5-40.5 [facility] Comment on above: Performed By: #### L IPID, T7, TSH, CMP ####[facility] [address] [place] [id number]. Siomara Mac T4 [Mass/Vol] 6.50 ug/dL Normal 5.53-11.00 [facility] Comment on above: Performed By: #### L IPID, T7, TSH, CMP ####[facility] [address] [place] [id number]. Siomara Mac GLYCOHEMOGLOBIN A1Con 2021 ADA RECOMMENDATION ADA THERAPEUTIC TARGET 6.0 - 7.0 ACTION SUGGESTED > 7.0 Normal [facility] Comment on above: Performed By: #### A 1C #### [facility] [address] [address] [address] Siomara Mac Glucose [Mass/Vol] 97 mg/dL Normal [facility] Comment on above: Performed By: #### A 1C #### [facility] [address] [address] [address] Siomara Mac HbA1c (Bld) [Mass fraction] 5.0 % Normal <=6.0 [facility] Comment on above: Performed By: #### A 1C #### [facility] [address] [address] [address] Siomara Mac IRONon 05-24-2021 Iron [Mass/Vol] 101.0 ug/dL Normal 37.0-170.0 [facility] Comment on above: Performed By: #### I JADE #### [facility] [address] [address] [address] Siomara Mac LIPID PROFILEon 05-24-2021 CHOL-HDL RATIO NORM SEE BELOW Normal [facility] Comment on above: Result Comment: 3.3 - 4.4 LOW RISK 4.4 - 7.1 AVERAGE RISK 7.1 - 11.0 MODERATE RISK >11.0 HIGH RISK Performed By: #### L IPID, T7, TSH, CMP ####[facility] [address] [place] [address]Dr. Siomara Mac Cholesterol [Mass/Vol] 203 mg/dL Critically high <=200 [facility] Comment on above: Performed By: #### L IPID, T7, TSH, CMP ####[facility] [address] [place] [id number]. Siomara Mac Cholesterol in HDL [Mass/Vol] 43 mg/dL Normal [facility] Comment on above: Performed By: #### L IPID, T7, TSH, CMP ####[facility] [address] [place] [id number]. Siomara Mac Cholesterol in LDL [Mass/Vol] 123.4 mg/dL Normal [facility] Comment on above: Performed By: #### L IPID, T7, TSH, CMP ####[facility] [address] [place], [place] [address]Dr. Gillbello Bubba Cholesterol.total/Chol esterol in HDL [Mass ratio] 4.7 {ratio} Normal [facility] Comment on above: Performed By: #### L IPID, T7, TSH, CMP ####[facility] [address] [place] [id number]. Siomara Mac HDL NORMAL > or = 60 mg/dl - LO W CARDIOVASCULAR RISK <40 mg/dl - HIGH CARDIOVASCULAR RISK Normal [facility] Comment on above: Performed By: #### L IPID, T7, TSH, CMP ####[facility] [address] [place] [id number]. Gillbello Mac LDL CALC NORMAL SEE BELOW Normal [facility] Comment on above: Result Comment: <100 mg/dl OPTIMAL 100 - 129 mg/dl NEAR OR ABOVE OPTIMAL 130 - 159 mg/dl BORDERLINE HIGH 160 - 189 mg/dl HIGH >190 mg/dl VERY HIGH Performed By: #### L IPID, T7, TSH, CMP ####[facility] [address] [place] [id number]. Gillbello Mac Triglyceride [Mass/Vol] 183 mg/dL Critically high <=150 [facility] Comment on above: Performed By: #### L IPID, T7, TSH, CMP ####[facility] [address] [place] [id number]. Siomara Mac VLDL CALC 36.6 mg/dL Normal [facility] Comment on above: Performed By: #### L IPID, T7, TSH, CMP ####[facility] [address] [place] [address]Dr. Siomara Mac PROF 14(COMP METB)on 022 Albumin [Mass/Vol] 3.7 g/dL Normal 3.5-5.0 [facility] Comment on above: Performed By: #### L IPID, T7, TSH, CMP ####[facility] [address] [place] [address]Dr. Siomara Mac Albumin/Globulin [Mass ratio] 1.0 {ratio} Normal [facility] Comment on above: Performed By: #### L IPID, T7, TSH, CMP ####[facility] [address] [place] [address]Dr. Siomara Mac ALP [Catalytic activity/Vol] 84 U/L Normal 38-126 [facility] Comment on above: Performed By: #### L IPID, T7, TSH, CMP ####[facility] [address] [place], [place] [address]Dr. Siomara Mac ALT [Catalytic activity/Vol] 21 U/L Normal 9-52 [facility] Comment on above: Performed By: #### L IPID, T7, TSH, CMP ####[facility] [address] [place] [address]Dr. Siomara Mac Anion gap [Moles/Vol] 11.1 mmol/L Normal [facility] Comment on above: Performed By: #### L IPID, T7, TSH, CMP ####[facility] [address] [place] [address]Dr. Siomara Mac AST [Catalytic activity/Vol] 14 U/L Normal 14-36 [facility] Comment on above: Performed By: #### L IPID, T7, TSH, CMP ####[facility] [address] [place] [address]Dr. Siomara Mac Bilirubin [Mass/Vol] 0.6 mg/dL Normal 0.2-1.3 [facility] Comment on above: Performed By: #### L IPID, T7, TSH, CMP ####[facility] [address] [place] [address]Dr. Siomara Mac Calcium [Mass/Vol] 8.7 mg/dL Normal 8.4-10.2 [facility] Comment on above: Performed By: #### L IPID, T7, TSH, CMP ####[facility] [address] [place], [place] [address]Dr. Siomara Mac Chloride [Moles/Vol] 106 mmol/L Normal 98-107 [facility] Comment on above: Performed By: #### L IPID, T7, TSH, CMP ####[facility] [address] [place], [place] [address]Dr. Siomara Mac CO2 [Moles/Vol] 26.7 mmol/L Normal 22.0-30.0 [facility] Comment on above: Performed By: #### L IPID, T7, TSH, CMP ####[facility] [address] [place], [place] [address]Dr. Siomara Mac Creatinine [Mass/Vol] 0.67 mg/dL Normal 0.52-1.04 [facility] Comment on above: Performed By: #### L IPID, T7, TSH, CMP ####[facility] [address] [place], [place] [address]Dr. Siomara Mac EGFR-AF INDONESIAN >60 Normal >=60 [facility] Comment on above: Performed By: #### L IPID, T7, TSH, CMP ####[facility] [address] [place], [place] [address]Dr. Siomara Mac EGFR-NON AF INDONESIAN >60 Normal >=60 [facility] Comment on above: Performed By: #### L IPID, T7, TSH, CMP ####[facility] [address] [place], [place] [address]Dr. Siomara Mac Globulin (S) [Mass/Vol] 3.7 g/dL Normal [facility] Comment on above: Performed By: #### L IPID, T7, TSH, CMP ####[facility] [address] [place] [address]Dr. Siomara Mac Glucose [Mass/Vol] 93 mg/dL Normal 74-106 [facility] Comment on above: Performed By: #### L IPID, T7, TSH, CMP ####[facility] [address] [place] [address]Dr. Siomara Mac Potassium [Moles/Vol] 3.8 mmol/L Normal 3.4-5.0 [facility] Comment on above: Performed By: #### L IPID, T7, TSH, CMP ####[facility] [address] [place] [address]Dr. Siomara Mac Protein [Mass/Vol] 7.4 g/dL Normal 6.1-8.2 [facility] Comment on above: Performed By: #### L IPID, T7, TSH, CMP ####[facility] [address] [place], [place] [address]Dr. Siomara Mac Sodium [Moles/Vol] 140 mmol/L Normal 137-145 [facility] Comment on above: Performed By: #### L IPID, T7, TSH, CMP ####[facility] [address] [place], [place] [address]Dr. Siomara Mac Urea nitrogen [Mass/Vol] 9.0 mg/dL Normal 7.0-17.0 [facility] Comment on above: Performed By: #### L IPID, T7, TSH, CMP ####[facility] [address] [place], [place] [address]Dr. Siomara Mac Urea nitrogen/Creatinine [Mass ratio] 13.4 mg/mg Normal [facility] Comment on above: Performed By: #### L IPID, T7, TSH, CMP ####[facility] [address] [place], [place] [address]Dr. Siomara Mac TSHon 05-24-2021 TSH 1.343 uIU/mL Normal 0.470-4.680 [facility] Comment on above: Performed By: #### L IPID, T7, TSH, CMP ####[facility] [address] [place], [place] [address]LeTin Siomara Mac TSH RANGE SEE BELOW Normal [facility] Comment on above: Result Comment: <0.3 4 UIU/ml HYPERTHYROID 0.34-5.60 UIU/ml EUTHYROID >5.60 UIU/ml HYPOTHYROID Performed By: #### L IPID, T7, TSH, CMP ####[facility] [address] [place] [id number]. Siomara Bubba Vital Signs Date Time Vital Sign Value Performing Clinician Milana blanchard 01-21-2022 01:31-0500 Diastolic blood pressure 80 mm[Hg] Kaylinn Dokken [facility] 01-21-2022 01:31-0500 Heart rate 108 /min Kaylinn Dokken [facility] 01-21-2022 01:31-0500 Mean blood pressure 95 mm[Hg] Kaylinn Dokken [facility] 01-21-2022 01:31-0500 Respiratory rate 21 /min Kaylinn Dokken [facility] 01-21-2022 01:31-0500 SaO2% (BldA) [Mass fraction] 96 % Kaylinn Dokken [facility] 01-21-2022 01:31-0500 Systolic blood pressure 126 mm[Hg] Kaylinn Dokken [facility] 01-21-2022 00:36-0500 Diastolic blood pressure 85 mm[Hg] Kaylinn Dokken [facility] 01-21-2022 00:36-0500 Heart rate 109 /min Kaylinn Dokken [facility] 01-21-2022 00:36-0500 Mean blood pressure 102 mm[Hg] Kaylinn Dokken [facility] 01-21-2022 00:36-0500 Respiratory rate 20 /min Kaylinn Dokken [facility] 01-21-2022 00:36-0500 SaO2% (BldA) [Mass fraction] 95 % Kaylinn Dokken [facility] 01-21-2022 00:36-0500 Systolic blood pressure 135 mm[Hg] Kaylinn Dokken [facility] 01-20-2022 23:26-0500 Diastolic blood pressure 93 mm[Hg] Kaylinn Dokken [facility] 01-20-2022 23:26-0500 Heart rate 102 /min Kaylinn Dokken [facility] 01-20-2022 23:26-0500 Mean blood pressure 99 mm[Hg] Kaylinn Dokken [facility] 01-20-2022 23:26-0500 Respiratory rate 21 /min Kaylinn Dokken [facility] 01-20-2022 23:26-0500 SaO2% (BldA) [Mass fraction] 97 % Kaylinn Dokken [facility] 01-20-2022 23:26-0500 Systolic blood pressure 112 mm[Hg] Kaylinn Dokken [facility] 01-20-2022 22:12-0500 gluc 94 mg/dL Kaylinn Dokken [facility] 01-20-2022 22:12-0500 gluc Kaylinn Dokken [facility] 01-20-2022 21:53-0500 Body temperature 98.24 [degF] Dominique Blackwood [facility] 01-20-2022 21:53-0500 Heart rate 108 /min Dominique Blackwodo [facility] 01-20-2022 21:53-0500 Respiratory rate 18 /min Dominique Blackwood [facility] Encounters Encounter Date Encounter Type Care Provider Facility Start: 05-09-2022 End: 05-10-[address] CE DELUCA . Facility:[facility] Start: 04-11-2022 End: 04-12-[address] CE DELUCA . Facility:[facility] Start: 04-05-[address] MONTANA HARDEN . Faci lity:[facility] Start: 03-06-2022 End: 03-06-[address] CE DELUCA . Facility:[facility] Start: 01-30-2022 End: 01-30-[address] MONTANA HARDEN . Facility:[facility] Start: 01-25-2022 End: 01-26-[address] CE DELUCA . Facility:[facility] Start: 01-20-2022 End: 01-21-2022 Emergency department patient visit Dominique Blackwood Facility:[facility] Start: 01-20-2022 End: 01-21-2022 Emergency department patient visit Dominique Blackwood [facility] Start: 01-15-2022 End: 01-16-[address] CE DELUCA . Facility:[facility] Start: 11-14-2021 End: 11-15-[address] CE DELUCA . Facility:[facility] Start: 11-07-2021 End: 12-01-[address] CE DELUCA . Facility:[facility] Start: 08-17-2021 End: 08-18-[address] CE DELUCA . Facility:[facility] Start: 05-25-2021 Encounter for genera l adult medical examination without abnormal findings DR CE DELUCA . [facility] Start: 05-24-2021 End: 05-25-[address] CE DELUCA . Facility:[facility] Start: 05-24-2021 End: 05-25-2021 Encounter for general adult medical examination without abnormal findings DR CE DELUCA . Facility:[facility] Start: 08-14-2016 End: 08-15-2016 Ambulatory DEFAULT PHYSICIAN Facility:[facility] Procedures Date Procedure Procedure Detail Performing Clinician Start: 10-22-2018 Diagnostic endoscopy Kareem Blackwood Appendectomy Dominique Blackwood Cervical (qualifier value) K salas Blackwood Comment on above: Cervical neck fractu re - Ruptured ectopic pre gnancy (disorder) Dominique Blackwood Payers Date Payer Category Payer Unknown [id number] [id number] 1980 Unknown [id number] 2.16.84 [id number] 1980 Unknown [id number] 2.16.84 [id number] 1980 Unknown [id number] 2.16.84 [id number] 1980 Unknown [id number] 2.16.84 [id number] 1980 Unknown [id number] 2.16.84 [id number] 1980 Unknown [id number] 2.16.84 [id number] 1980 Unknown [id number] 2.16.84 [id number] 1980 Unknown [id number] 2.16.84 [id number] 1980 Unknown [id number] 2.16.84 [id number] 1980 Unknown [id number] 2.16.84 [id number] 1980 Unknown [id number] 2.16.84 [id number] 1959 Unknown [id number] 1959 Unknown [id number] Unknown Social History Date Type Detail Facility Start: 01-20-2022 Tobacco smoking status Ex-smoker (fi nding) [facility] Sex Assigned At Female [facility] Functional Status Date Assessment Result Facility 01-20-2022 Functional Status N/A [facility] Consultation note 01-30-2022 Note Date & Type Note Facility 01-30-2022 Note CONSULTATION CONSULTATION DATE: 01/30/2022 CHIEF COMPLAINT: Cervical pain, left shoulder pain. HISTORY OF PRESENT ILLNESS: This is a very pleasant, 41-year-old female who is referred to us by Dr. Deluca. The patient has had chronic cervical pain. [...] an 8-9/10. 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 Housework, activities [...] up in office in March. CC: Ce Deluca M.D. [facility] Discharge instructions 01-21-2022 Note Date & Type Note Facility 01-21-2022 Hospital Discharg e instructions Patient Education 01/21/2022 01:34:40 Nonspecific Chest Pain, Adult, [id number] Nonspecific Chest Pain Chest pain can be [...] Follow these instructions at home: Medicines Take kkbn-hyw-ghujdxy and prescription medicines only as told by [...] ?Eating a heart-healthy diet. A diet and nutrition partner (dietitian) can help you to learn healthy [...] 08/13/2008 Document Revised: 08/28/2018 Document Reviewed: 08/28/2018 [employer] Patient Education 2020 bright box. Follow Up Care 01/20/2022 21:52:01 With:Ce Kelli Address: [address] [place], [place] [id number] Business (1) When:01/24/2022 Comments:Please follow-up with your primary care doctor in the next 2 to 3 days for further evaluation management. Please return to the ED for any new or worsening symptoms. [facility] Evaluation + Plan note 01-20-2022 Note Date [...] Therapy PT & PTT Rapid COVID Antigen ([facility]) Saline Lock Insert Troponin 0 Hr. Troponin 3 Hr. Troponin 6 Hr. XR Chest Single View [facility] Clinical Note 11-14-2021 Note Date & Type Note Facility 11-14-2021 Note PROCEDURE: XR SHOULD ER LT 2V or > COMPARISON: None. HISTORY: Neck pain FINDINGS: BONES:No fracture, acute abnormality, or significant arthropathy. SOFT TISSUES:Negative. No visible soft tissue swelling. EFFUSION:None visible. OTHER: Negative. IMPRESSION: No acute disease. Electronically authenticated by: JUSTICE ANDRADE Date: 2021-11-14 10:44 [facility] course Narrative Note Date & Type Note Facility Hospital course Narrative No data available for this section [facility] Progress note Note Date & Type Note Facility Progress note No data available for this section [facility] Summary Purpose Family History No Family History Records FoundNo Family History Records FoundNo Family History Records Found Advance Directives No Advanced Directives Records FoundNo Advanced Directives Records FoundNo Advanced Directives Records Found Additional Source Comments INFORMATION SOURCE (unrecogn ized section and content) DATE CREATED AUTHOR 09/04/2017 [facility] DATE CREATED AUTHOR AUTHOR'S ORGANIZ ATION 01/29/2022 [facility] DATE CREATED AUTHOR AUTHOR'S ORGANIZ ATION 05/15/2022 [facility] Patient Care team informatio n (unrecognized section and content) Personnel Name: Ce Deluca MD Address: Address: [address] [place] [address] FOR RECORDS PERTAINING TO PATIENTS WHO ARE [...] BE BASED ON THE PRIMARY CLINICAL RECORDS. [facility] [employer] [facility]. provides no warranty or guarantee of the accuracy or completeness of information in this document.
== END 2023-07-30 08:01 | disposition home or self-care (01) ==
LOC: CARD 08:01
PROVIDERS: PCP Family Medicine
DX: Z01.810 Encounter for preprocedural cardiovascular examination (principal)
CPT/HCPCS: 93005

== ENCOUNTER 2024-02-25 12:41 | Outpatient (OUT) | payer SELFPAY ==
--- NOTE | 2024-02-25 12:45 | MM_ITS ---
Patient Name: AMISHA LAKHANI MR#: [id number] : 1980 Exam Date: 02/25/2024 Ordering Doctor: KATELYN ADRIAN CNP RADIOLOGY REPORT PROCEDURE: MM TOMOSYNTHESIS DIAGNOSTIC BI, 02/25/2024, 13:15 US BREAST BI LIMITED, 02/25/2024, 13:37 COMPARISON: MG MAMM SCREEN 3D MIRA CAD, 01/10/2021. MM TOMOSYNTHESIS SCREENING BI, 05/27/2023. INDICATIONS: breast lump Calculator Name NCI Breast Cancer Risk Assessment Tool 5 Year Breast Cancer Risk 1.10% Lifetime Breast Cancer Risk 12.00% Personal Breast Cancer No Personal Ovarian Cancer No Treatments None Family Cancers Aunt-paternal with breast cancer at age 50; Grandfather-maternal with pancreatic cancer at age ~60; Cousin-paternal with breast cancer at age 42; Grandfather-paternal with pancreatic cancer at age ~70; Uncle-paternal with prostate cancer at age ~65. LOCATION: [facility] BREAST COMPOSITION: The breasts are extremely dense, which lowers the sensitivity of mammography. FINDINGS: DIAGNOSTIC CATEGORY 3--PROBABLY BENIGN FINDING. THE FOLLOWING FINDING(S) HAS A HIGH PROBABILITY OF A BENIGN ETIOLOGY: There has been interval reduction mammoplasty with multiple linear scar markers.Scattered benign-appearing calcifications are present. Scattered benign-appearing lymph nodes are present. RIGHT BREAST: [place] marker indicates a palpable mass in the axilla, a stable well-circumscribed nodule is noted subjacent to the triangle marker measuring 1.1 cm. Ultrasound demonstrates in the same location a 1.0 x 0.8 x 1.1 cm oval hypoechogenic a vascular mass extending from the hypo dermis into the subcutaneous fat without a definite stalk to the skin surface . This is indeterminate but stability over the course of the year with suggests a benign process. Six-month follow-up ultrasound and mammogram recommended LEFT BREAST: A new area of focal asymmetry is observed in the 9 o'clock position, posterior breast, spot imaging demonstrates this area to disperse. Ultrasound demonstrates a heterogeneous area measuring 3.1 x 1.0 x 1.1 cm. An area of postsurgical change is favored. Six-month follow-up mammogram and ultrasound is recommended. RECOMMENDATIONS: SHORT TERM FOLLOW-UP DIAGNOSTIC MAMMOGRAM BILATERAL BREASTS IN 6 MONTHS. SHORT TERM FOLLOW-UP ULTRASOUND BILATERAL BREASTS IN 6 MONTHS. PLEASE NOTE: A NORMAL MAMMOGRAM DOES NOT EXCLUDE THE POSSIBILITY OF BREAST CANCER. A CLINICALLY SUSPICIOUS PALPABLE LUMP SHOULD BE BIOPSIED. Dictated by: Delfino Rodas MD on 02/25/2024 at 14:25 Approved by: Delfino Rodas MD on 02/25/2024 at 14:33
--- OUTSIDE RECORDS SUMMARY | 2024-02-25 12:57 | XMS_ITS | CCD ---
Author Organization [facility] Care Team Providers Care [employer] Name Role Phone PHYSICIAN, DEFAULT Unavailable Unavailable PHYSICIAN, DEFAULT Unavailable Unavailable SELF, REFERRED Unavailable Unavailable Ce Deluca Primary Care Physician [phone] Dominique Blackwood Attending Unavailable HARDEN ., DR MONTAAN Chiang Admitting Unavailable HARDEN ., DR MONTANA Chiang Consulting Unavailable HOY ., DR ENCINAS Primary Care Unavailable HARDEN ., DR MONTANA Chiang Attending Unavailable HARDEN ., DR MONTANA Chiang Admitting Unavailable HARDEN ., DR MNOTANA Chiang Attending Unavailable HOY ., DR ENCINAS [...] Primary Care Unavailable HOY ., DR ENCINAS Admnataile Unavailable HOY ., DR ENCINAS Attending Unavailable [...] HOY ., DR ENCINAS Primary Care Unavailable [place], DR JUSTICE Romeo Consulting Unavailable HOY ., DR ENCINAS Admitting Unavailable HOY ., DR ENCINAS Primary Care Unavailable HOY ., DR ENCINAS Attending Unavailable Allergies Allergy Classification Reported Allergen(s) Allergy Type Date of Onset Reaction(s) Facility (1 source) penicillin Drug Allergy 06-14-2015 [facility] Repository (4 sources) Penicillins; Translations: [penicillins] Drug allergy 09-20-2012 [facility] Medications Current Medications Medication Drug [...] Value Interpretation Reference Range Facility Covid-19 PCR ([facility])on 02-09 SARS-CoV-2 (COVID-19) RNA GALDINO+probe Ql (Unsp spec) Not detected Normal NOT DETECTED [facility] Comment on above: Result Comment: This test is not yet approved or cleared by the [place] FDA. When there are no FDA-approved or cleared tests available, and other criteria are met, FDA can make tests available under an emergency access mechanism called an Emergency Use Authorization (EUA). The EUA for this test is supported by the [place] of Health and Human Service's (HHS's) declaration [...] SARS-CoV-2. Performed By: #### C VDTBH #### [facility] [address] [place] [address] Dr. Siomara Mac INFLUENZA A AND B [facility] 03-06 INFLUSAN [facility] SEE BELOW Normal [facility] Comment on above: Result Comment: Nega tive for Flu A protein angiten. Infection due to Flu A cannot be ruled out. Flu A angiten in the sample may be below the detection limit of the test. Performed By: #### I NFLUAB #### [facility] [address] [place] [address] Dr. [facility] Normal [facility] Comment on above: Result Comment: Nega tive for Flu B protein antigen. Infection due to Flu B cannot be ruled out. Flu B antigen in the sample may be below the detection limit of the test. Performed By: #### I NFLUAB #### [facility] [address] [place] [address] Dr. Siomara Mac INFLUENZA A AG Negative Normal NEGATIVE SEE COMMENT [facility] Comment on above: Performed By: #### I NFLUAB #### [facility] [address] [place] [address] Dr. Siomara Mac INFLUENZA B AG Negative Normal NEGATIVE SEE COMMENT [facility] Comment on above: Performed By: #### I NFLUAB #### [facility] [address] [address] [address] Siomara Mac INTERNAL CONTROLS Within Normal Limits Normal Wi thin Normal Limits [facility] Comment on above: Performed By: #### I NFLUAB #### [facility] [address] [place], [place] [address] Dr. Siomara Mac MRI CSPINE WO CONon [...] JUSTICE ANDRADE Date: 2022-01-25 08:53 Normal [facility] Coding Summary.on 01-24-2022 Coding Summary. CD:[id number] h0bWw+PGhlYWQ+BN6PDNU rV53lhKTtiR6GA1qGTI5D ATMBQCSDUH8GDE0mnTL6L NbpU7EjygUk AajlwHLvPV16SBv1AMK7x PtiFQhcnF1qxXYrD5u0Rd BmYB20mX27DTftIGNlQtQ 3LjZpbjsgbWFy N9yaUjHmoQYhZyb+PHRhY mxlIHdpZHRoPScxMDAlJy UuuUypSH6zWo2zWCLdGHW vbGxhcHNlOiBj e5pqQEDyXHsxUF1ruRjjS 1GluXB2TZBoi4r5Im15mX I+FUEdSOI3jCazVQrcs99 8DbMwh0orAJP4 iDWqGUjrPBI4D16dm0N7A REpNYQmZFB8gQW7fB8hcP zdasapI4SrgSViNsM9WVU 3mTNuvJ9yeZqy utyycB3hGja+D87HNF3XR MMQZE9PKdr0U4VxTdjjqJ I+AW88SYDrEY47gZAraLL rs6klqGb4UvUs ROVrNBF3lLslTWuzj7BcD FAlP30qsPAbn6M7QXIlcB hdhGEeCaHhaKB3cK2aFPr bwrprw3frirfb Gqnmf4mlhg01yY47B61eU PewTCXvRDN6ONPbCAQskF yyva0tlB3pQi9+MRiag5o ts1zqsYa5OsZa SRPravGlkEoeHKW8f9QuV l39C9FluJlwd4GpJtu2cp 67hEGfz8T7hBQ0NUuxLIH tpI2vEMgtYgG0 WAYfRtKjnG00dAVmHBogZ w0idZncqWlfMM6fEMXuni lsDIKnfE4tZVVcqTBthJs jAH9zRXUeqyyo v260JsPtLUF4BFRgkNMcC 3LzmH2iOsRuFHRhNUTuL6 ZzaGYuQWmeL482WKqpLeP 2AODuarLaE3Bo TDRqeVikByQ6d1Y7Sg9Fz 8QtrkexUYS3EJcyZKVxJb D2PgWsYsM2E7JtSkc1UJC nuAxjBS1hT6Ag DQKnlsqamruppKD0QVNuW WAfmU13mMPhBDxiAz8wa2 F3t535SBZxJQAxkG85Ak5 udDogMTBwdCBU pM4fwkdfa1nhukwyTrHwD GRyNKx3MVr7BNJggFeqBd ZdLOU1ZuC0OZC9eGQwyH3 aeKvyupmumV6q Oyc+K68gpH7zKHP5ZIW4s rymCWRqzpJbPJ68FD00P0 RyPjwvdGFibGU+PGRpdiB odPeuMH9sDxOy y8zwf9NjSUgpR8UbHPTmC ZsbHhs3QNSxFAY5bSR5pK 4iGMAsFTpir5Y4lBH5U3K xoyAmgj3tp4it UXAvVKiwU53wcPXbl3E8B RIahFE1NHOclJltMdFlrP 93Oyc+IMBmrDfog3ZyTij rr6txc6dflBa8 ZqJtESQxqqShbNdwJTC2p 0ZpCf32Z04yIMwoIYPsBI DkVXLcJDSwnUgajt9yoV7 wIi8+PGNvbCB3 eWW4aR2hTIBdAhO9SPuxM 054QhKxmPMzTefqc7vpr0 qeaWb7AbTjDNKidlHusAx kOHJ4v1MzGx23 W11vIDfwQMSqYZWoRHDmI AAqxBefnb3bhJ9kRu3+PC 1bl9kfvi39aM66uVT+PHR nIXE2tPiqCMbk IMSmvO9bYAliMpM7WLWqL nQmkD09yQCeGUwfTw4cjW ajoIqoNG1nEGGptmhsr40 1RvTbg6odKTKt yIDzAYyoGHA8O27hn8G6H MTbEBJkGLL6eMM2oM2yoG lnbjogbGVmdDsgdmVydGl zVYlvMQndY818 IHRvcDsnPlBhdGllbnQgT pUsJOn3K5KxHdy3GQCjbY udJV8osVLrBWayYb3uqZi blAtgNS2xZJUk rlwdh110OuMdr4raFXKmj IRkUXczZBH4R81mg4E1SR XaTHVnXLI9pJE3gT1bnTd nbjogbGVmdDsg diIitLyrADjeYTlbP614J HRvcDsnPkJpcnRoIERhdG L5SL18AL27gTHjn2K3gGQ 9N2HzYMChjdpy hqfanSM0LHQkSGUhpD40J p0iwHhuPq8iOLQrIOK5LY WjoAMzS4ClsU6gSeCtCYL oMSLaT2MwqYWu BOipS537IUirElH3DCZmj cTvV3GzDIEsdHwaZdY1h0 D1Fu3CS4B9MY39QM31tNQ bx4K5yZJ3Q6Rf NTHyccrbgqfkzTT2XCOvU KGewE24Wn5fnOalRp6gKY XzQPX2FGOuxCSqU8PtqG5 yOiAjMDAwMDAw W3FclGLhSWvqI719UWccK yN7QVQcpqXjR2GhFFHqgI djSwL7g0R0Dr6GBWc1FI7 1WZ64eXKbw3T0 oTE2D1HqDTKexpiunqfyy IH8BRTjYNTnxK15Ze4ceP jcZb2nKJWyLCR7TOQogRX bI7PoqZ4qMcUk YBTwALLsT0RgyDRxAFsjF 548DBlsRbR2SZIxrnTrS9 XtERXmpEoqTiW4f8I7Yx1 XICEaAY15GIF9 yVF4FQ04NW32H4QxSyqih GFibGU+PHRhYmxlIHdpZH RoPScxMDAlJyBzdHlsZT0 pZs9fSNMkVMEt kTuqpKKhXqCpc7qrCZEuH XzfWZ2osOenG9HgsPU8OQ Yws8d4Gb27R76tL5XdkIM +IIFfzHP8yUG8 cK6oYyVaSvY4XLuzY215M dBpaIPeYhuoz4ckm8dmzA f9QhZ6ERVbznBkhZizJYV 4l0NpQr46S23d IHdpZHRoPSIxNSUiIHZhb Sxrbh3suW6nKi7+PGNvbC V6hTO5yA3zAfPlHhK2NQw vX624PoYjyAUv Sofch8ilo5jxxPx0JbRqG MNeveJvnRgtPOS7a5IwIq 47Z0CrmNsyt3DdRxr4vj1 8iHRst2C6oYR9 M3RgSQAazhadcSPnpTvrS L8fHASlkwmrPBQgsX8hCA LiQ6w8UeRxMyU0QCwfV2W lbdH8XSUjjZGi UFtgEGK5Z60yb1Z7PXKtA VJtESO0lSO5vV2inVhtpt ogbGVmdDsgdmVydGljYWw gNHkvC350BSMd cIvrANYxgO7wZZUlkRQcf RdyNG1sCNTuahddEshZHp KFOgkcJ0LRTZGXTU01LO2 6yNIvh1X6oXG0 S5SrKBAvbxfotufycOE0U OOjTJOvaT23bOWmWZqjHr 3oh1S4k021XMUyQSHpsZ8 3Bh3kqVbcNTXj qJLRhO9ymsmmo2pavdafR kHeRMQxQId1JAq5AIUueA stAeShCZZ3VjZ1JEU1tOG blT4ekZandkgj vB7dZpf+WADxJZscESs9L TwvdGQ+FEIjCVY7lLiwUQ stQNUloD7sDBRnG7o3StS dUcU7HFekM3Jn TEYqseawCv42vU0gYoUbL wH6ZUsmS3ChwbL0GCOucL PhILwqXRM5O43oc8F3PFT fFBMgUYW7qFV8 qF9ecVmkbgdisUZdaNtyt uEndBpaFIisQZaiU762EY RvcDsnPjQxIFllYXJzPC9 6JO02dCVcc8B0 cTB2L2RiLBKfmndjjhjuh RI8TECyOAWbqY84fZTxNA iqFn9uq0Y5s328KPJzPDO fdB69Sj9rsDan URZgpYRFgV0ggdnlh7eqi iswJySqNBFcNHu5TDe3YX AixDekVbKuIKE3HuS7ONH 5gAJyaG9mjBcn neemsY3bDrq+RmVtYWxlP U14IJ87uYYcr8S7oTA7C4 HbBNBypcagdbloeUW7AXF mODNvcU49hVUh RFzdPr8wp3G9o510GLCtV NGxxV91Ds8wcNmiDHZxrZ GCkL0yahzdl9ckbxkmGeA vKFImGGj5LYc0 QPMrtEhlSnZqXOR4RhO6Y YV7lIZgjB0rrGisddujbL 9wOyc+ZD6hvwdtyyW7IK1 5WR61U2KiQzdk dGFibGU+PHRhYmxlIHdpZ HRoPScxMDAlJyBzdHlsZT 3bKr2aBDQlNFKpmGowmLQ rHcCjh8hjKJQz WGmlIS9kpKuwM2MdpOM3W AOzy8g2Aj74T94uE0SesN A+JGCsbFW3cOB1qG0yUjH vQoX5PDfnF389 XsXgvMIlQxaxp1jql4icd Lj5AiTkCJLuelBdsPguOL Y9t7YxJn24B14zZEcnHYK oPSIyMCUiIHZh oElvoz9jvX7yXs6+PGNvb WS4tLW8kS3gEdZwStG9OE sdQ523KtZgeBDjHwowC96 nB7HwqUL+PHRy Epn3LAMcjVmxML6vtQDfH HwgSt0iODZ1RsUfXrUtIL ikW9CjVFCxfvbygiukyPA 3HJGxIPMumE43 Vc4qbCplGt1sRVTqJYJ7G MMcmMZrX2IrqB0yVnClOT TwRIHtC4MwxNBpFGzqK01 0SSouYtM6FNUj tzYyE4PcBRZwlAzlUvK9t 9E4Yt4XlEtisZBhIK5tTb DyLVh9O7CkCue6QLLejPb rXT8qtWKcMUyl Ky4njQsblWcxWS1zBGHwn vkoo615ZtZyi9ciQNFscK CeNXsgQYD5Y47lr0C8KUE hMBLbAKD1qJO2 gQ0kwBjhfjlnpEUneSbpr uVgvSucPJexWLcyF970SX DrwCpoJcYELkq9T9PfEah 2ISZixLiwRF5b fJOvHWzePy2eiDbysOxtL C1mIANrdpgkf265FmRtn5 kpTLNufAKuJDctHRP3G09 lr5P4ZNNlDDAb SHH9wMK4bI5lzReyrhaiv GVmdDsgdmVydGljYWwtYW uzY382OWPvnDfpVs7EUjy 1L2XrOqm5DUSf qUiyRA3qkPHnMExfZn9ob ZgyjKmmKY9kGHTszpruj8 10CpBrs6puXBKspVDyHKk uNVG4K32sv9N4 PUHtFFLfHCI6fZS1wL2op GlnbjogbGVmdDsgdmVydG xpRGebBRbeU907RRXuuLo nPlBheWVyOjwv dGQ+OQ56ha52L6UbCnrvC vr8GAOlYZE0kFR6nT1nYB ClDJcvb6M0iGF8G2NoqjF mvd7ii3qcMLTs ZTog (more content not included)... Normal [facility] Auto Diffon 01-21-2022 Basophils/100 WBC (Bld) 0.8 % Normal 0.0-2.0 [facility] Comment on above: Order Comment: Order Added by Discern Expert. Performed By: #### 2 [id number], [id number] #### [facility] [address] [place] [address] Basophils/Leukocytes Auto (Bld) [Pure # fraction] 0.1 E9/L Normal 0.0-0.2 [facility] Comment on above: Order Comment: Order Added by Discern Expert. Performed By: #### 2 [id number], [id number] #### [facility] [address] [place] [address] Eosinophils/100 WBC (Bld) 2.2 % Normal 0.0-8.0 [facility] Comment on above: Order Comment: Order Added by Heather Expert. Performed By: #### 2 [id number], [id number] #### [facility] [address] [place] [address] Eosinophils/Leukocytes Auto (Bld) [Pure # fraction] 0.2 E9/L Normal 0.0-0.5 [facility] Comment on above: Order Comment: Order Added by Discern Expert. Performed By: #### 2 [id number], [id number] #### [facility] [address] [place] [address] Lymphocytes/100 WBC (Bld) 29.8 % Normal 14.0-50.0 [facility] Comment on above: Order Comment: Order Added by Discern Expert. Performed By: #### 2 [id number], [id number] #### [facility] [address] [place] [address] Lymphocytes/Leukocytes Auto (Bld) [Pure # fraction] 2.9 E9/L Normal 1.0-4.0 [facility] Comment on above: Order Comment: Order Added by Heather Expert. Performed By: #### 2 [id number], [id number] #### [facility] [address] [place] [address] Monocytes/100 WBC (Bld) 6.8 % Normal 4.0-14.0 [facility] Comment on above: Order Comment: Order Added by Discern Expert. Performed By: #### 2 [id number], [id number] #### [facility] [address] [place] [address] Monocytes/Leukocytes Auto (Bld) [Pure # fraction] 0.7 E9/L Normal 0.2-1.0 [facility] Comment on above: Order Comment: Order Added by Discern Expert. Performed By: #### 2 [id number], [id number] #### [facility] [address] [place] [address] Neutrophils/100 WBC (Bld) 60.4 % Normal 36.0-75.0 [facility] Comment on above: Order Comment: Order Added by Discern Expert. Performed By: #### 2 [id number], [id number] #### [facility] [address] [place] [address] Neutrophils/Leukocytes Auto (Bld) [Pure # fraction] 5.8 E9/L Normal 2.0-7.5 [facility] Comment on above: Order Comment: Order Added by Discern Expert. Performed By: #### 2 [id number], [id number] #### [facility] [address] [place] [address] B hCG Qualon 01-21-2022 Beta hCG Ql Negative Normal [facility] Comment on above: Performed By: #### 2 [id number] #### [facility] [address] [place] [address] BMPon 01-21-2022 Creatinine [Mass/Vol] 0.9 mg/dL Normal 0.5-1.3 [facility] Comment on above: Performed By: #### 2 [id number], [id number] #### [facility] [address] [place] [address] Urea nitrogen [Mass/Vol] 13 mg/dL Normal 5-21 [facility] Comment on above: Performed By: #### 2 [id number], [id number] #### [facility] [address] [place] [address] Urea nitrogen/Creatinine [Mass ratio] 14 No Units Normal 10-20 [facility] Comment on above: Performed By: #### 2 [id number], [id number] #### [facility] [address] [place] [address] Anion gap [Moles/Vol] 13 mmol/L Normal 6-16 [facility] Comment on above: Performed By: #### 2 [id number], [id number] #### [facility] [address] [place] [address] Calcium [Mass/Vol] 8.9 mg/dL Normal 8.9-11.1 [facility] Comment on above: Performed By: #### 2 [id number], [id number] #### [facility] [address] [place] [address] Chloride [Moles/Vol] 104 mmol/L Normal 101-111 [facility] Comment on above: Performed By: #### 2 [id number], [id number] #### [facility] [address] [place] [address] CO2 [Moles/Vol] 23 mmol/L Normal 21-31 [facility] Comment on above: Performed By: #### 2 [id number], [id number] #### [facility] [address] [place] [address] Glucose [Mass/Vol] 105 mg/dL Normal 55-199 [facility] Comment on above: Result Comment: If t his glucose result represents a fasting glucose, interpretation should refer to the following reference range: 55-99 mg/dL Performed By: #### 2 [id number], [id number] #### [facility] [address] [facility] [place] [address] Potassium [Moles/Vol] 3.4 mmol/L Low 3.5-5.3 [facility] Comment on above: Performed By: #### 2 [id number], [id number] #### [facility] [address] [place] [address] Sodium [Moles/Vol] 137 mmol/L Normal 135-145 [facility] Comment on above: Performed By: #### 2 [id number], [id number] #### [facility] [address] [place] [address] CBC w/ Auto Diffon Erythrocyte distribution width (RBC) [Ratio] 12.3 % Normal 10.9-14.2 [facility] Comment on above: Performed By: #### 2 [id number], [id number] #### [facility] [address] [place] [address] Hematocrit (Bld) [Volume fraction] 37.2 % Normal 34.0-46.0 [facility] Comment on above: Performed By: #### 2 [id number], [id number] #### [facility] [address] [place] [address] Hemoglobin (Bld) [Mass/Vol] 13.2 g/dL Normal 12.0-16.0 [facility] Comment on above: Performed By: #### 2 [id number], [id number] #### [facility] [address] [place] [address] MCH (RBC) [Entitic mass] 31.1 pg Normal 27.0-34.0 [facility] Comment on above: Performed By: #### 2 [id number], [id number] #### [facility] [address] [place] [address] MCHC (RBC) [Mass/Vol] 35.4 g/dL Normal 31.4-36.0 [facility] Comment on above: Performed By: #### 2 [id number], [id number] #### [facility] [address] [place] [address] MCV (RBC) [Entitic vol] 87.9 fL Normal 80.0-100.0 [facility] Comment on above: Performed By: #### 2 [id number], [id number] #### [facility] [address] [place] [address] Platelet mean volume (Bld) [Entitic vol] 7.7 fL Normal 6.4-10.8 [facility] Comment on above: Performed By: #### 2 [id number], [id number] #### [facility] [address] [place] [address] Platelets (Bld) [#/Vol] 232.0 E9/L Normal 150.0-500.0 [facility] Comment on above: Performed By: #### 2 [id number], [id number] #### [facility] [address] [place] [address] RBC (Bld) [#/Vol] 4.2 E12/L Low 4.3-5.9 [facility] Comment on above: Performed By: #### 2 [id number], [id number] #### [facility] [address] [place] [address] WBC corrected for nucl RBC Auto (Bld) [#/Vol] 9.6 E9/L Normal 4.0-11.0 [facility] Comment on above: Performed By: #### 2 [id number], [id number] #### [facility] [address] [place] [address] CHEMISTRYOrdered By: SYSTEM SYSTEM on 01-21-2022 Troponin I.cardiac [Mass/Vol] 3.80 pg/mL Low 10.10 - 27.10 pg/mL [facility] Remisol D-Dimeron 01-21-2022 Fibrin D-dimer FEU (PPP) [Mass/Vol] 294 [id number] Normal 215-500 [facility] Comment on above: Result Comment: This [...] infections Liver cirrhosis Performed By: #### 2 [id number], [id number] #### [facility] [address] [place] [address] Discharge Instructionson Discharge Instructions [id number] 1.00CD:127 Normal [facility] ED Clinical Summaryon 2021 ED Clinical Summary [address] [address] ED Clinical Summary Person Information Name: AMISHA LAKHANI Criss/[facility] Age: 41 Years : 1980 Sex: Female Language: Persian PCP: Ce Deluca MD Marital Status: Single [...] 01/21/2022 01:34:40 01/21/2022 01:34:40 01/21/2022 01:34:40 ADDRESS: [address] [place] [address] [phone] [id number] PHYS DOC NOTES: MEDICAL INFORMATION: Prescriptions Given: PATIENT EDUCATION INFORMATION: Instructions: Nonspecific Chest Pain, Adult, Lpng-wu-Vxvl Follow up: With: Address: When: Ce Deluca [address] [place] [address], [place] [address] Business (1) In 3 days 01/24/2022 Comments: Please follow-up with your primary care doctor in the next 2 to 3 days for further evaluation management. Please return to the ED for any new or worsening symptoms. DIAGNOSIS: Chest pain Normal [facility] ED Note-Physicianon 01-22-20 ED Note-Physician Basic Information Time Seen: Dokken DO, Kaylinn A 01/20/2022 21:54 Chief Complaint Pt arrives to [...] intravenous soluti (more content not included)... Normal [facility] Comment on above: Result Comment: Elec [...] these instructions at home: Medicines ? Take hqty-ohk-vcaipmd and prescription medicines only as told by [...] Eating a heart-healthy diet. A diet and nutritional assistant (dietitian) can help you to learn healthy [...] Reviewed: 08/28/2018 Elsevier Patient Education ? 2020 [employer] Normal [facility] ED Patient Summaryon 022 ED Patient Summary [place] [id number] Patient Discharge Instructions Person Information Name: AMISHA LAKHANI Age: 41 Years Arrival Date: 01/20/2022 21:51:07 Discharge Diagnosis: Chest pain Primary Care Physician: Ce Deluca MD Provider Information Primary Provider: Dominique Blackwood DO Advanced Sales Recruiter:None The exam and treatment you received in the Emergency Department were for an urgent problem and are not intended as complete care. It is important that you follow up with a doctor, nurse practitioner, or physician?s portfolio assistant for ongoing care. If your symptoms [...] Follow-up Instructions: With: Address: When: Ce Deluca [address] [place] [address], [facility] [place] [phone] Business (1) In 3 days 01/24/2022 Comments: [...] Patient Education Materials: Nonspecific Chest Pain, Adult, Wzii-mu-Lptm A MESSAGE TO ALL PATIENTS REGARDING OPIOIDS PRESCRIPTION OPIOIDS: WHAT YOU NEED TO KNOW Prescription opioids can be used to help relieve zevrevbw-oi-xdvxzt pain and are often prescribed following a [...] ? If y (more content not included)... [facility] EMS Documentationon 01-22-20 22 EMS Documentation [id number]# 1.00CD:127 [facility] Hep Func Panelon 01-21-2022 Bilirubin.indirect [Mass or moles/Vol] [facility] Abnormal 0.1-0.9 [facility] Comment on above: Result Comment: Resu lt verified by Discern Rule. Performed result UT (Unable to Calculate) was sent as an Alpha code due the inability to calculate a valid numeric value. Performed By: #### 2 [id number] #### [facility] [address] [place] [address] Albumin [Mass/Vol] 3.7 g/dL Normal 3.3-5.0 [facility] Comment on above: Performed By: #### 2 [id number] #### [facility] [address] [place] [address] Albumin/Globulin (S) [Mass conc ratio] 1.1 Normal 1.1-2.2 [facility] Comment on above: Performed By: #### 2 [id number] #### [facility] [address] [place] [address] ALP [Catalytic activity/Vol] 60 Int._Unit/L Normal 21-98 [facility] Comment on above: Performed By: #### 2 [id number] #### [facility] [address] [place] [address] ALT No additional P-5'-P [Catalytic activity/Vol] 17 Int._Unit/L Normal 6-46 [facility] Comment on above: Performed By: #### 2 [id number] #### [facility] [address] [place] [address] AST [Catalytic activity/Vol] 18 Int._Unit/L Normal 5-43 [facility] Comment on above: Performed By: #### 2 [id number] #### [facility] [address] [place] [address] Bilirubin [Mass/Vol] 0.4 mg/dL Normal 0.0-1.1 [facility] Comment on above: Performed By: #### 2 [id number] #### [facility] [address] [place] [address] Bilirubin.direct [Mass/Vol] mg/dL Normal 0.1-0.4 [facility] Comment on above: Performed By: #### 2 [id number] #### [facility] [address] [place] [address] Globulin (S) [Mass/Vol] 3.3 g/dL Normal 1.4-4.0 [facility] Comment on above: Performed By: #### 2 [id number] #### [facility] [address] [place] [address] Protein [Mass/Vol] 7.0 g/dL Normal 6.0-7.8 [facility] Comment on above: Performed By: #### 2 [id number] #### [facility] [address] [place] [address] Influenza A&B Agon 2 Influenzae A Ag Negative Normal Negative [facility] Comment on above: Performed By: #### 2 [id number] #### [facility] [address] [place] [address] Influenzae B Ag Negative Normal Negative [facility] Comment on above: Result Comment: Test sensitivity and specificity vary for age group, specimen type, antigen types, and prevalence of disease. Test results must be evaluated in conjunction with other clinical data available to the physician. Individuals who received nasally administered Influenza A vaccine may have positive test results up to 3 days after vaccination. Performed By: #### 2 [id number] #### [facility] [address] [place] [address] Monitor Recordon 01-21-2022 Monitor Record [id number] Normal [facility] PT & PTTon 01-21-2022 aPTT Coag (PPP) [Time] 32.7 second(s) Normal 25.1-36.5 [facility] Comment on above: Result Comment: Para [...] the same coagulation reagent and instrumentation as [facility]. Currently there are no coagulation studies available worldwide for children to 14 days, and no normal ranges. Heparin therapeutic range (represented by Anti-Factor Xa activity of 0.2 - 0.4 U/mL) corresponds to PTT of 56.6 - 109.0 sec. Performed By: #### 2 [id number] #### [facility] [address] [place] [address] INR Coag (PPP) [Relative time] 1.1 {INR} Invalid Interpretation Code [facility] Comment on above: Result Comment: INR results are specifically intended to assess patients stabilized on long-term Anticoagulation therapy suggested INR?s ?Less Intensive Anticoagulation? 2.0 ? 3.0 Conventional Range 3.0 ? 4.5 Performed By: #### 2 [id number] #### [facility] [address] [place] [address] PT Coag (PPP) [Time] 11.8 second(s) Normal 9.4-12.5 [facility] Comment on above: Result Comment: 15 [...] the same coagulation reagent and instrumentation as [facility]. Currently there are no coagulation studies available worldwide for children to 14 days, and no normal ranges. Performed By: #### 2 [id number], [id number] #### [facility] [address] [place] [address] Rapid COVID Antigen (FT)on 01-21-2022 Rapid COV Int NEG Ctl Pass Normal Fis her [facility] Comment on above: Performed By: #### 2 [id number], [id number] #### [facility] [address] [place] [address] Rapid COV Int POS Ctl Pass Normal Fis [facility] Comment on above: Performed By: #### 2 [id number], [id number] #### [facility] [address] [place] [address] SARS-CoV+SARS-CoV-2 (COVID-19) Ag IA.rapid Ql (Resp) Not detected Normal Not Detected [facility] Comment on above: Result Comment: The Reclip.Ititor? System for Rapid Detection of SARS-CoV-2 is [...] or revoked sooner. Performed By: #### 2 [id number], [id number] #### [facility] [address] [address] ADMITTED TO INTENSIVE CARE UNIT FOR CONDITION OF INTEREST:FIND:PT: NO Normal [facility] Comment on above: Performed By: #### 2 [id number], [id number] #### [facility] [address] [place] [address] EMPLOYED IN A HEALTHCARE SETTING:FIND:PT: NO Normal [facility] Comment on above: Performed By: #### 2 [id number], [id number] #### [facility] [address] [place] [address] FIRST TEST FOR CONDITION OF INTEREST:FIND:PT: YES Normal [facility] Comment on above: Performed By: #### 2 [id number], [id number] #### [facility] [address] [place] [address] HAS SYMPTOMS RELATED TO CONDITION OF INTEREST:FIND:PT: YES Normal [facility] Comment on above: Performed By: #### 2 [id number], [id number] #### [facility] [address] [place] [place] [address] HOSPITALIZED FOR CONDITION OF INTEREST:FIND:PT: NO Normal [facility] Comment on above: Performed By: #### 2 [id number], [id number] #### [facility] [address] [place] [address] STATUS:FIND:PT: NO Normal [facility] Comment on above: Performed By: #### 2 [id number], [id number] #### [facility] [address] [place] [address] RESIDES IN A CONGREGATE CARE SETTING:FIND:PT: NO Normal [facility] Comment on above: Performed By: #### 2 [id number], [id number] #### [facility] [address] [place] [address] Troponin 0 Hr.on 01-21-2022 Troponin I.cardiac [Mass/Vol] 2.80 pg/mL Low 10.10-27.10 [facility] Comment on above: Result Comment: The 95% CI (Confidence Interval) PPV (Positive Predictive Value) for myocardial infarction in females is 38 pg/mL, in males 51 pg/mL. The results should be used in conjunction with clinical conditions of myocardial infarction. (Access High Sensitivity Troponin I Instructions For Use, [employer], October 2017) Performed By: #### 2 [id number] #### [facility] [address] [place] [address] Troponin 3 Hr.on 01-21-2022 Troponin I.cardiac [Mass/Vol] 3.80 pg/mL Low 10.10-27.10 [facility] Comment on above: Result Comment: The 95% CI (Confidence Interval) PPV (Positive Predictive Value) for myocardial infarction in females is 38 pg/mL, in males 51 pg/mL. The results should be used in conjunction with clinical conditions of myocardial infarction. (Access High Sensitivity Troponin I Instructions For Use, [employer], October 2017) Performed By: #### 1 [id number] #### [facility] [address] [place] [address] XR Chest Single Viewon 01-21 XR Chest [...] V. Transcribed by: KATI Technologist: IGLESIA Kan [facility] eGFRon 01-21-2022 GFR/1.73 sq M.predicted among blacks MDRD (S/P/Bld) [Vol rate/Area] mL/min/{1.73_m2} Normal >=59 [facility] Comment on above: Order Comment: Order added by Discern Expert. Result Comment: eGFR is race adjusted. AA=. Performed By: #### 2 [id number] #### [facility] [address] [place] [address] GFR/1.73 sq M.predicted among non-blacks MDRD (S/P/Bld) [Vol rate/Area] mL/min/{1.73_m2} Normal >=59 [facility] Comment on above: Order Comment: Order added by Discern Expert. Result Comment: Extracorporeal Technician alysha kidney disease could be indicated at eGFR's of less than 60 mL/min/1.73m2. Kidney failure is indicated at less than 15 mL/min/1.73m2. Performed By: #### 2 [id number] #### [facility] [address] [place] [address] CHEMISTRYOrdered By: SYSTEM SYSTEM on 01-20-2022 Albumin [...] rate/Area] mL/min/1.73 m2 Normal >=59mL/min/1 .73 m2 [facility] Chem S GFR/1.73 sq M.predicted among non-blacks MDRD (S/P/Bld) [Vol rate/Area] mL/min/1.73 m2 Normal >=59mL/min/1 .73 m2 [facility] Chem S Globulin (S) [Mass/Vol] 3.3 g/dL [...] Comment: Jace winter RN/ POC Device SN [id number] Invalid Interpretation Code [facility] POC Subsection POC User ID [id number] Invalid Interpretation Code FT POC Subsection POC Username TIN SONG Invalid Interpretation Code [facility] POC Subsection COAGULATIONOrdered By: Allis on Victor Hugo on 01-20-2022 aPTT Coag [...] 01-09 Glucose [Mass/Vol] 94 mg/dL Normal 55-99 [facility] Comment on above: Result Comment: Jace winter RN/ Performed By: #### 2 [id number] #### [facility] [address] [place] [address] Consent for Treatmenton 01-09 Consent for Treatment [id number] 211 [id number] Normal [facility] HEMATOLOGYOrdered By: SYSTEM SYSTEM on 01-20-2022 [...] by: JUSTICE ANDRADE Date: 2022-01-15 17:34 Normal [facility] XR CSPINE MIN 4 VIEWSon 08-09 XR [...] by: JUSTICE ANDRADE Date: 2021-08-18 07:29 Normal [facility] INSULINon 05-25-2021 Insulin 13.9 uIU/mL Normal 2.6-24.9 [facility] Comment on above: Performed By: #### I NSULIN #### [facility] [address] [place] [address] Dr. Siomara Mac CBC AUTO DIFFon 05-24-2021 BASO # 0.0 103/ul Normal 0.0-0.1 [facility] Comment on above: Performed By: #### C BC ####[facility] [address] [place], [place] [address]Dr. Siomara Mac Basophils/100 WBC (Bld) 0.5 % Normal 0.2-2.0 [facility] Comment on above: Performed By: #### C BC ####[facility] [address] [place], [place] [address]Dr. Siomara Mac EO # 0.2 103/ul Normal 0.0-0.7 [facility] Comment on above: Performed By: #### C BC ####[facility] [address] [place], [place] [address]Dr. Siomara Mac Eosinophils/100 WBC (Bld) 3.7 % Normal 0.9-7.0 [facility] Comment on above: Performed By: #### C BC ####[facility] [address] [place], [place] [address]Dr. Siomara Mac Erythrocyte distribution width (RBC) [Ratio] 11.6 % Normal 11.0-15.0 [facility] Comment on above: Performed By: #### C BC ####[facility] [address] [place], [place] [address]Dr. Siomara Mac Hematocrit (Bld) [Volume fraction] 41.7 % Normal 36.0-48.0 [facility] Comment on above: Performed By: #### C BC ####[facility] I[address] [place], [place] [address]Dr. Siomara Mac Hemoglobin (Bld) [Mass/Vol] 14.2 g/dL Normal 12.0-16.0 [facility] Comment on above: Performed By: #### C BC ####[facility] V[address]su[address] [place], [place] [address]Dr. Siomara Mac IG # 0.03 10e3/ul Normal 0.00-0.03 [facility] Comment on above: Performed By: #### C BC ####[facility] Fvx[address] [place], [place] [address]Dr. Siomara Mac IG % 0.5 % Normal 0.0-0.5 [facility] Comment on above: Performed By: #### C BC ####[facility] [address] [place] [address]DrTin Mac LYMPH # 2.1 103/ul Normal 1.2-3.8 [facility] Comment on above: Performed By: #### C BC ####[facility] [address] [place] [address]DrTin Mac Lymphocytes/100 WBC (Bld) 33.5 % Normal 20.5-60.0 [facility] Comment on above: Performed By: #### C BC ####[facility] [address] [place], [place] [address]DrTin Mac MANUAL DIFF REQ NO Normal [facility] Comment on above: Performed By: #### C BC ####[facility] [address] [place] [address]DrTin Mac MCH (RBC) [Entitic mass] 31.2 pg Normal 26.7-34.0 [facility] Comment on above: Performed By: #### C BC ####[facility] In[address]zix[address] [place], [place] [address]DrTin Mac MCHC (RBC) [Mass/Vol] 34.1 g/dL Normal 29.9-35.2 [facility] Comment on above: Performed By: #### C BC ####[facility] End[address] [place], [place] [address]DrTin Mac MCV (RBC) [Entitic vol] 91.6 fL Normal 81.0-99.0 [facility] Comment on above: Performed By: #### C BC ####[facility] At[address] [place], [place] [address]DrTin Mac MONO # 0.3 103/ul Normal 0.3-0.8 [facility] Comment on above: Performed By: #### C BC ####[facility] [address] [place], [place] [address]DrTin Mac Monocytes/100 WBC (Bld) 5.4 % Normal 1.7-12.0 [facility] Comment on above: Performed By: #### C BC ####[facility] [address] [place] [address]Dr. Siomara Mac NEUT # 3.6 103/ul Normal 1.4-6.5 [facility] Comment on above: Performed By: #### C BC ####[facility] [address] [place] [address]Dr. Siomara Mac Neutrophils/100 WBC (Bld) 56.4 % Normal 43.0-75.0 [facility] Comment on above: Performed By: #### C BC ####[facility] [address] [place] [address]Dr. Siomara Mac Platelet mean volume (Bld) [Entitic vol] 9.4 fL Critically low 9.5-13.5 [facility] Comment on above: Performed By: #### C BC ####[facility] V[address] [place], [place] [address]Dr. Siomara Mac PLT 292 103/ul Normal 150-450 [facility] Comment on above: Performed By: #### C BC ####[facility] Dutsx[address] [place], [place] [address]Dr. Siomara Mac RBC 4.55 106/ul Normal 4.20-5.40 [facility] Comment on above: Performed By: #### C BC ####[facility] [address] [place], [place] [address]Dr. Siomara Mac WBC 6.3 103/ul Normal 4.0-11.0 [facility] Comment on above: Performed By: #### C BC ####[facility] [address] [place], [place] [address]Dr. Siomara Mac FREE THYROXINE INDEX T7on FTI 2.41 Normal [facility] Comment on above: Performed By: #### L IPID, T7, TSH, CMP ####[facility] [address] [place], [place] [address]Dr. Siomara Mac T3U 37.0 % Normal 23.5-40.5 [facility] Comment on above: Performed By: #### L IPID, T7, TSH, CMP ####[facility] [address] [place] [id number]. Siomara Mac T4 [Mass/Vol] 6.50 ug/dL Normal 5.53-11.00 [facility] Comment on above: Performed By: #### L IPID, T7, TSH, CMP ####[facility] [address] [place] [id number]. Siomara Mac GLYCOHEMOGLOBIN A1Con 2021 ADA RECOMMENDATION ADA THERAPEUTIC TARGET 6.0 - 7.0 ACTION SUGGESTED > 7.0 Normal [facility] Comment on above: Performed By: #### A 1C #### [facility] [address] [place] [address] [address] Siomara Mac Glucose [Mass/Vol] 97 mg/dL Normal [facility] Comment on above: Performed By: #### A 1C #### [facility] [address] [address] [address] Siomara Mac HbA1c (Bld) [Mass fraction] 5.0 % Normal <=6.0 [facility] Comment on above: Performed By: #### A 1C #### [facility] [address] [address] [address] Siomara Mac IRONon 05-24-2021 Iron [Mass/Vol] 101.0 ug/dL Normal 37.0-170.0 [facility] Comment on above: Performed By: #### I JADE #### [facility] [address] [address] [address] Siomara Mac LIPID PROFILEon 05-24-2021 CHOL-HDL RATIO NORM SEE BELOW Normal [facility] Comment on above: Result Comment: 3.3 - 4.4 LOW RISK 4.4 - 7.1 AVERAGE RISK 7.1 - 11.0 MODERATE RISK >11.0 HIGH RISK Performed By: #### L IPID, T7, TSH, CMP ####[facility] [address] [place] [address]Dr. Siomara Mac Cholesterol [Mass/Vol] 203 mg/dL Critically high <=200 [facility] Comment on above: Performed By: #### L IPID, T7, TSH, CMP ####[facility] [address] [place] [id number]. Siomara Mac Cholesterol in HDL [Mass/Vol] 43 mg/dL Normal [facility] Comment on above: Performed By: #### L IPID, T7, TSH, CMP ####[facility] [address] [place] [phone]. Siomara Mac Cholesterol in LDL [Mass/Vol] 123.4 mg/dL Normal [facility] Comment on above: Performed By: #### L IPID, T7, TSH, CMP ####[facility] [address] [place] [address]Dr. Gillbello Bubba Cholesterol.total/Chol esterol in HDL [Mass ratio] 4.7 {ratio} Normal [facility] Comment on above: Performed By: #### L IPID, T7, TSH, CMP ####[facility] [address] [place] [id number]. Siomara Mac HDL NORMAL > or = 60 mg/dl - LO W CARDIOVASCULAR RISK <40 mg/dl - HIGH CARDIOVASCULAR RISK Normal [facility] Comment on above: Performed By: #### L IPID, T7, TSH, CMP ####[facility] [address] [place] [phone]. Gillbello Bubba LDL CALC NORMAL SEE BELOW Normal [facility] Comment on above: Result Comment: <100 mg/dl OPTIMAL 100 - 129 mg/dl NEAR OR ABOVE OPTIMAL 130 - 159 mg/dl BORDERLINE HIGH 160 - 189 mg/dl HIGH >190 mg/dl VERY HIGH Performed By: #### L IPID, T7, TSH, CMP ####[facility] [address] [place] [phone]. Gillbello Mac Triglyceride [Mass/Vol] 183 mg/dL Critically high <=150 [facility] Comment on above: Performed By: #### L IPID, T7, TSH, CMP ####[facility] [address] [place] [phone]. Siomara Mac VLDL CALC 36.6 mg/dL Normal [facility] Comment on above: Performed By: #### L IPID, T7, TSH, CMP ####[facility] [address] [place] [address]Dr. Siomara Mac PROF 14(COMP METB)on 022 Albumin [Mass/Vol] 3.7 g/dL Normal 3.5-5.0 [facility] Comment on above: Performed By: #### L IPID, T7, TSH, CMP ####[facility] [address] [place] [address]Dr. Siomara Mac Albumin/Globulin [Mass ratio] 1.0 {ratio} Normal [facility] Comment on above: Performed By: #### L IPID, T7, TSH, CMP ####[facility] [address] [place] [address]Dr. Siomara Mac ALP [Catalytic activity/Vol] 84 U/L Normal 38-126 [facility] Comment on above: Performed By: #### L IPID, T7, TSH, CMP ####[facility] M[address] [place], [place] [address]Dr. Siomara Mac ALT [Catalytic activity/Vol] 21 U/L Normal 9-52 [facility] Comment on above: Performed By: #### L IPID, T7, TSH, CMP ####[facility] [address] [place] [address]Dr. Siomara Mac Anion gap [Moles/Vol] 11.1 mmol/L Normal [facility] Comment on above: Performed By: #### L IPID, T7, TSH, CMP ####[facility] [address] [place] [address]Dr. Siomara Mac AST [Catalytic activity/Vol] 14 U/L Normal 14-36 [facility] Comment on above: Performed By: #### L IPID, T7, TSH, CMP ####[facility] [address] [place] [address]Dr. Siomara Mac Bilirubin [Mass/Vol] 0.6 mg/dL Normal 0.2-1.3 [facility] Comment on above: Performed By: #### L IPID, T7, TSH, CMP ####[facility] [address] [place] [address]Dr. Siomara Mac Calcium [Mass/Vol] 8.7 mg/dL Normal 8.4-10.2 [facility] Comment on above: Performed By: #### L IPID, T7, TSH, CMP ####[facility] [address] [place], [place] [address]Dr. Siomara Mac Chloride [Moles/Vol] 106 mmol/L Normal 98-107 [facility] Comment on above: Performed By: #### L IPID, T7, TSH, CMP ####[facility] Dycoinktkf[address] [place], [place] [address]Dr. Siomara Mac CO2 [Moles/Vol] 26.7 mmol/L Normal 22.0-30.0 [facility] Comment on above: Performed By: #### L IPID, T7, TSH, CMP ####[facility] H[address]vf[address] [place], [place] [address]Dr. Siomara Mac Creatinine [Mass/Vol] 0.67 mg/dL Normal 0.52-1.04 [facility] Comment on above: Performed By: #### L IPID, T7, TSH, CMP ####[facility] B[address] [place], [place] [address]Dr. Siomara Mac EGFR-AF NIGERIAN >60 Normal >=60 [facility] Comment on above: Performed By: #### L IPID, T7, TSH, CMP ####[facility] [address] [place], [place] [address]Dr. Siomara Mac EGFR-NON AF NIGERIAN >60 Normal >=60 [facility] Comment on above: Performed By: #### L IPID, T7, TSH, CMP ####[facility] Irx[address] [place], [place] [address]Dr. Siomara Mac Globulin (S) [Mass/Vol] 3.7 g/dL Normal [facility] Comment on above: Performed By: #### L IPID, T7, TSH, CMP ####[facility] [address] [place] [address]Dr. Siomara Mac Glucose [Mass/Vol] 93 mg/dL Normal 74-106 [facility] Comment on above: Performed By: #### L IPID, T7, TSH, CMP ####[facility] [address] [place] [address]Dr. Siomara Mac Potassium [Moles/Vol] 3.8 mmol/L Normal 3.4-5.0 [facility] Comment on above: Performed By: #### L IPID, T7, TSH, CMP ####[facility] [address] [place] [address]Dr. Siomara Mac Protein [Mass/Vol] 7.4 g/dL Normal 6.1-8.2 [facility] Comment on above: Performed By: #### L IPID, T7, TSH, CMP ####[facility] X[address] [place], [place] [address]Dr. Siomara Mac Sodium [Moles/Vol] 140 mmol/L Normal 137-145 [facility] Comment on above: Performed By: #### L IPID, T7, TSH, CMP ####[facility] [address] [place], [place] [address]Dr. Siomara Mac Urea nitrogen [Mass/Vol] 9.0 mg/dL Normal 7.0-17.0 [facility] Comment on above: Performed By: #### L IPID, T7, TSH, CMP ####[facility] En[address]eg[address] [place], [place] [address]Dr. Siomara Mac Urea nitrogen/Creatinine [Mass ratio] 13.4 mg/mg Normal [facility] Comment on above: Performed By: #### L IPID, T7, TSH, CMP ####[facility] [address] [place], [place] [address]Dr. Siomara Mac TSHon 05-24-2021 TSH 1.343 uIU/mL Normal 0.470-4.680 [facility] Comment on above: Performed By: #### L IPID, T7, TSH, CMP ####[facility] [address] [place] [id number] Siomara Mac TSH RANGE SEE BELOW Normal [facility] Comment on above: Result Comment: <0.3 4 UIU/ml HYPERTHYROID 0.34-5.60 UIU/ml EUTHYROID >5.60 UIU/ml HYPOTHYROID Performed By: #### L IPID, T7, TSH, CMP ####[facility] [address] [place] [phone]. Siomara Mac Vital Signs Date Time Vital Sign Value Performing Clinician Milana blanchard 01-21-2022 01:31-0500 Diastolic blood pressure 80 mm[Hg] Kaylinn Dokken [facility] 01-21-2022 01:31-0500 Heart rate 108 /min Kaylinn Dokken [facility] 01-21-2022 01:31-0500 Mean blood pressure 95 mm[Hg] Kaylinn Dokken [facility] 01-21-2022 01:31-0500 Respiratory rate 21 /min Kaylinn Dokken [facility] 01-21-2022 01:31-0500 SaO2% (BldA) [Mass fraction] 96 % Kaylinn Dokken [facility] 01-21-2022 01:31-0500 Systolic blood pressure 126 mm[Hg] Kaylinn Dokken [facility] 01-21-2022 00:36-0500 Diastolic blood pressure 85 mm[Hg] Kaylinn Dokken [facility] 01-21-2022 00:36-0500 Heart rate 109 /min Kaylinn Dokken [facility] 01-21-2022 00:36-0500 Mean blood pressure 102 mm[Hg] Kaylinn Dokken [facility] 01-21-2022 00:36-0500 Respiratory rate 20 /min Kaylinn Dokken [facility] 01-21-2022 00:36-0500 SaO2% (BldA) [Mass fraction] 95 % Kaylinn Dokken [facility] 01-21-2022 00:36-0500 Systolic blood pressure 135 mm[Hg] Kaylinn Dokken [facility] 01-20-2022 23:26-0500 Diastolic blood pressure 93 mm[Hg] Kaylinn Dokken [facility] 01-20-2022 23:26-0500 Heart rate 102 /min Kaylinn Dokken [facility] 01-20-2022 23:26-0500 Mean blood pressure 99 mm[Hg] Kaylinn Dokken [facility] 01-20-2022 23:26-0500 Respiratory rate 21 /min Kaylinn Dokken [facility] 01-20-2022 23:26-0500 SaO2% (BldA) [Mass fraction] 97 % Kaylinn Dokken [facility] 01-20-2022 23:26-0500 Systolic blood pressure 112 mm[Hg] Kaylinn Dokken [facility] 01-20-2022 22:12-0500 gluc 94 mg/dL Kaylinn Dokken [facility] 01-20-2022 22:12-0500 gluc Kaylinn Dokken [facility] 01-20-2022 21:53-0500 Body temperature 98.24 [degF] Dominique Blackwood [facility] 01-20-2022 21:53-0500 Heart rate 108 /min Dominique Blackwood [facility] 01-20-2022 21:53-0500 Respiratory rate 18 /min Dominique Blackwood [facility] Encounters Encounter Date Encounter Type [...] 01-21-2022 Emergency department patient visit Dominique Blackwood Facility:[facility] Start: 01-20-2022 End: 01-21-2022 Emergency department patient visit Dominique Blackwood [facility] Start: 01-15-2022 End: 01-16-[address] CE DELUCA . Facility:[facility] Start: 11-14-2021 End: 11-15-[address] CE DELUCA . Facility:[facility] Start: 11-07-2021 End: 12-01-[address] CE DELUCA . Facility:[facility] Start: 08-17-2021 End: 08-18-[address] CE DELUCA . Facility:[facility] Start: 05-25-2021 Encounter for genera l adult medical examination without abnormal findings DR CE DELUCA . [facility] Start: 05-24-2021 End: 05-25-[address] CE DELUCA . Facility:[facility] Start: 05-24-2021 End: 05-25-2021 Encounter for general adult medical examination without abnormal findings DR CE DELUCA . Facility:[facility] Start: 08-14-2016 End: 08-15-2016 Ambulatory DEFAULT PHYSICIAN Facility:[facility] Procedures Date Procedure Procedure Detail Performing Clinician Start: 10-22-2018 Diagnostic endoscopy Kareem Blackwood Appendectomy Dominique Blackwood Cervical (qualifier value) K salas Blackwood Comment on above: Cervical neck fractu re - Ruptured ectopic pre gnancy (disorder) Dominique Blackwood Payers Date Payer Category Payer Unknown [id number] 2.16.8 [id number] 1980 Unknown [id number] 2.16.84 0.1.319129.3.579.2.593 1980 Unknown [id number] 2.16.84 0.1.666579.3.579.2.593 1980 Unknown [id number] 2.16.84 0.1.881428.3.579.2.593 1980 Unknown [id number] 2.16.84 0.1.730699.3.579.2.593 1980 Unknown [id number] 2.16.84 0.1.588992.3.579.2.593 1980 Unknown [id number] 2.16.84 0.1.188992.3.579.2.593 1980 Unknown [id number] 2.16.84 0.1.989470.3.579.2.593 1980 Unknown [id number] 2.16.84 0.1.065317.3.579.2.593 1980 Unknown [id number] 2.16.84 0.1.775084.3.579.2.593 1980 Unknown [id number] 2.16.84 0.1.212708.3.579.2.593 1980 Unknown [id number] 2.16.84 0.1.421017.3.579.2.593 1959 Unknown [id number] 1959 Unknown [id number] Unknown Social History Date Type Detail Facility Start: 01-20-2022 Tobacco smoking status Ex-smoker (fi nding) [facility] Sex Assigned At Female [facility] Functional Status Date Assessment Result Facility 01-20-2022 Functional Status N/A [facility] Consultation note 01-30-2022 Note Date [...] an 8-9/10. 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 Housework, activities [...] office in March. CC: Ce Deluca M.D. [facility] Discharge instructions 01-21-2022 Note Date & Type Note Facility 01-21-2022 Hospital Discharg e instructions Patient Education 01/21/2022 01:34:40 Nonspecific Chest Pain, Adult, [id number] Nonspecific Chest Pain Chest pain can be [...] Follow these instructions at home: Medicines Take [id number] and prescription medicines only as told by [...] ?Eating a heart-healthy diet. A diet and nutritional assistant (dietitian) can help you to learn healthy [...] 08/13/2008 Document Revised: 08/28/2018 Document Reviewed: 08/28/2018 [employer] Patient Education 2020 [employer]. Follow Up Care 01/20/2022 21:52:01 With:Ce Kelli Address: [address] [place], [place] [id number] Business (1) When:01/24/2022 Comments:Please follow-up with your primary care doctor in the next 2 to 3 days for further evaluation management. Please return to the ED for any new or worsening symptoms. [facility] Evaluation + Plan note 01-20-2022 [...] Therapy PT & PTT Rapid COVID Antigen [place] [place] Saline Lock Insert Troponin 0 Hr. Troponin 3 Hr. Troponin 6 Hr. XR Chest Single View [facility] Clinical Note 11-14-2021 Note Date & Type Note Facility 11-14-2021 Note PROCEDURE: XR SHOULD ER LT 2V or > COMPARISON: None. HISTORY: Neck pain FINDINGS: BONES:No fracture, acute abnormality, or significant arthropathy. SOFT TISSUES:Negative. No visible soft tissue swelling. EFFUSION:None visible. OTHER: Negative. IMPRESSION: No acute disease. Electronically authenticated by: UJSTICE ANDRADE Date: 2021-11-14 10:44 [facility] course Narrative Note Date & Type Note Facility Hospital course Narrative No data available for this section [facility] Progress note Note Date & Type Note Facility Progress note No data available for this section [facility] Summary Purpose Family History No Family History Records FoundNo Family History Records FoundNo Family History Records Found Advance Directives No Advanced Directives Records FoundNo Advanced Directives Records FoundNo Advanced Directives Records Found Additional Source Comments INFORMATION SOURCE (unrecogn ized section and content) DATE CREATED AUTHOR 09/04/2017 [facility] DATE CREATED AUTHOR AUTHOR'S ORGANIZ ATION 01/29/2022 [facility] DATE CREATED AUTHOR AUTHOR'S ORGANIZ ATION 05/15/2022 [facility] Patient Care team informatio n (unrecognized section and content) Personnel Name: Ce Deluca MD Address: Address: [address] [place] [address] FOR RECORDS PERTAINING TO PATIENTS WHO ARE [...] BE BASED ON THE PRIMARY CLINICAL RECORDS. [facility] [employer] [facility]. provides no warranty or guarantee of the accuracy or completeness of information in this document.
== END 2024-02-25 12:42 | disposition home or self-care (01) ==
LOC: MAMMO 12:41
PROVIDERS: PCP Nurse Practitioner Family; Visit Provider Nurse Practitioner Family
DX: N63.10 Unspecified lump in the right breast, unspecified quadrant (principal); N63.20 Unspecified lump in the left breast, unspecified quadrant; N63.0 Unspecified lump in unspecified breast; R22.31 Localized swelling, mass and lump, right upper limb; Z80.3 Family history of malignant neoplasm of breast; Z80.8 Family history of malignant neoplasm of other organs or systems; Z80.42 Family history of malignant neoplasm of prostate
CPT/HCPCS: 76642; 77066; G0279